=== PATIENT | male | born 1930 | race Caucasian/White ===

== ENCOUNTER → 2017-02-26 | Outpatient (CLI) | payer MEDICARE ==
[~2017-02-26] MED LIST: AGGR20025 PO; AMLO2.5T PO; ATOR40TA16 PO; CHLO.12%30 SWISH-SPIT; CHOL1CHW5 CHEW; CITA20TA4 PO; EMPA1TAB3 PO; GLIP10TA6 PO; GLYB5TAB3 PO; GUAISYP4 PO; HYDR-2374 PO; HYDR-2768 PO; HYDR12.57 PO; IPRA1POW8 NASAL; LIDO0.052 TOPICAL; LIDO2GEL11 TOPICAL; MEGE40TA PO; MOBI7.5T PO; MUPI2CRE3; NALO1TAB2 PO; NITR.3 SL; NORV5TAB PO; NYST15T TOPICAL; OFLO0.3D5 EACH EYE; ONDA1TAB17 PO; RANI150T PO; ZINC1CRE3 TOPICAL; ZOCO10TA PO; [UNRECOGNIZED DRUG - SUPPLY]
[2017-02-26 09:19] LABS: AUTOMATED NEUTROPHIL # 5.3 TH/MM3 (1.8-7.7); BASOPHIL % 0.5 % (0.0-2.0); EOSINOPHIL # 0.2 TH/MM3 (0-0.4); EOSINOPHIL % 2.2 % (0.0-4.0); HEMATOCRIT 44.5 % (39.0-51.0); HEMO FLAGS DIFF FINAL; LYMPH % 20.1 % (9.0-44.0); LYMPHOCYTE # 1.6 TH/MM3 (1.0-4.8); MEAN CELL VOLUME 88.8 FL (80.0-100.0); MEAN CORPUSCULAR HEMOGLOBIN 29.8 PG (27.0-34.0); MEAN CORPUSCULAR HGB CONC 33.5 % (32.0-36.0); MONO % 10.8 % (0.0-8.0); NEUT % 66.4 % (16.0-70.0); PLATELET COUNT 139 TH/MM3 (150-450); RED BLOOD COUNT 5.02 MIL/MM3 (4.50-5.90); RED CELL DISTRIBUTION WIDTH 14.8 % (11.6-17.2)
[2017-02-26 10:10] LABS: ALKALINE PHOSPHATASE 90 U/L (45-117); ALT (GPT) 28 U/L (12-78); ANION GAP 12 MEQ/L (5-15); AST (GOT) 17 U/L (15-37); BICARBONATE 26.5 MEQ/L (21.0-32.0); BLOOD UREA NITROGEN 30 MG/DL (7-18); CHLORIDE 102 MEQ/L (98-107); GLOMERULAR FILTRATION RATE 49 ML/MIN (>89); GLUCOSE,FASTING 143 MG/DL (74-99); HDL CHOLESTEROL 42.3 MG/DL (40.0-60.0); LDL CHOLESTEROL 61 MG/DL (0-99); POTASSIUM 3.4 MEQ/L (3.5-5.1); SODIUM (NA) 140 MEQ/L (136-145); THYROXINE (T4) 9.2 MCG/DL (4.5-12.1); TOTAL BILIRUBIN ADULT 0.6 MG/DL (0.2-1.0)
[2017-02-26 10:15] LABS: RHEUMATOID FACTOR TRIGGER LESS THAN 10.0 IU/ML (0.0-14.9)
[2017-02-26 13:53] LABS: BACTERIA, URINE MOD /hpf; BLOOD, URINE SMALL (NEG); COMMENT (UR) CULTURE INDICATED; CULTURE IF INDICATED CULTURE INDICATED; GLUCOSE,URINE 1000 mg/dL (NEG); KETONE, URINE TRACE mg/dL (NEG); NITRITE,URINE NEG (NEG); URINE COLOR YELLOW (YELLW/STRAW)
[2017-02-26 14:24] LABS: HEMOGLOBIN A1a 0.6 %; HEMOGLOBIN F 1.1 %; HEMOGLOBIN LA1C 2.4 %; HEMOGLOBIN P3 5.7 %
== END ==
LOC: PLAB 07:29
PROVIDERS: ATTEND Family Medicine
DX: I10 Essential (primary) hypertension (principal); E78.2 Mixed hyperlipidemia; E03.8 Other specified hypothyroidism; R53.83 Other fatigue; E11.319 Type 2 diabetes mellitus with unspecified diabetic retinopathy without macular edema; R82.90 Unspecified abnormal findings in urine; Z79.899 Other long term (current) drug therapy
CPT/HCPCS: 36415; 80053; 80061; 81001; 82043; 83036; 84436; 84443; 84480; 85025; 86430; 87077; 87086; 87186

== ENCOUNTER → 2017-03-27 | Outpatient (CLI) | payer MEDICARE ==
[2017-03-27 09:11] LABS: AUTOMATED NEUTROPHIL # 5.6 TH/MM3 (1.8-7.7); BASOPHIL # 0.1 TH/MM3 (0-0.2); BASOPHIL % 1.2 % (0.0-2.0); EOSINOPHIL # 0.4 TH/MM3 (0-0.4); EOSINOPHIL % 4.3 % (0.0-4.0); HEMO FLAGS DIFF FINAL; LYMPH % 19.3 % (9.0-44.0); LYMPHOCYTE # 1.7 TH/MM3 (1.0-4.8); MEAN CELL VOLUME 93.3 FL (80.0-100.0); MEAN CORPUSCULAR HEMOGLOBIN 30.5 PG (27.0-34.0); MEAN CORPUSCULAR HGB CONC 32.7 % (32.0-36.0); MONO % 10.7 % (0.0-8.0); NEUT % 64.5 % (16.0-70.0); PLATELET COUNT 147 TH/MM3 (150-450); RED BLOOD COUNT 4.83 MIL/MM3 (4.50-5.90); RED CELL DISTRIBUTION WIDTH 14.5 % (11.6-17.2); WHITE BLOOD COUNT 8.7 TH/MM3 (4.0-11.0)
[2017-03-27 10:21] LABS: ANION GAP 5 MEQ/L (5-15); BICARBONATE 30.7 MEQ/L (21.0-32.0); BLOOD UREA NITROGEN 31 MG/DL (7-18); CHLORIDE 104 MEQ/L (98-107); POTASSIUM 4.7 MEQ/L (3.5-5.1); SODIUM (NA) 140 MEQ/L (136-145)
[2017-03-27 10:27] LABS: ALT (GPT) 33 U/L (12-78); AST (GOT) 19 U/L (15-37); GLOMERULAR FILTRATION RATE 46 ML/MIN (>89); GLUCOSE,FASTING 125 MG/DL (74-99)
[2017-03-27 10:33] LABS: ALKALINE PHOSPHATASE 99 U/L (45-117); TOTAL BILIRUBIN ADULT 0.5 MG/DL (0.2-1.0)
== END ==
LOC: PLAB 06:44
PROVIDERS: ATTEND Urology
DX: C61 Malignant neoplasm of prostate (principal); I10 Essential (primary) hypertension; E10.8 Type 1 diabetes mellitus with unspecified complications
CPT/HCPCS: 36415; 80053; 84153; 85025

== ENCOUNTER → 2017-05-21 | Outpatient (CLI) | payer MEDICARE ==
[2017-05-21 10:44] LABS: POTASSIUM 3.8 MEQ/L (3.5-5.1)
[2017-05-21 10:47] LABS: HDL CHOLESTEROL 56.5 MG/DL (40.0-60.0)
== END ==
LOC: PLAB 06:49
PROVIDERS: ATTEND Family Medicine
DX: E10.8 Type 1 diabetes mellitus with unspecified complications (principal); E78.2 Mixed hyperlipidemia; Z79.899 Other long term (current) drug therapy
CPT/HCPCS: 36415; 80048; 80061

== ENCOUNTER → 2017-07-11 | Outpatient (CLI) | payer MEDICARE ==
[~2017-07-11] MED LIST changes: +ASPI1CAP PO; +EMPA1TAB PO; +HYDR-3583 PO; +IPRA0.06 EACH NARE; +NITR1SUB3 SL; +OMEP20TA PO; +VITA2000 PO; +VITA250C3 CHEW; +[UNRECOGNIZED DRUG - OTHER] PO
== END ==
LOC: PLAB 07:35
PROVIDERS: ATTEND Urology
DX: C61 Malignant neoplasm of prostate (principal); R31.1 Benign essential microscopic hematuria
CPT/HCPCS: 36415; 82565; 84153; 84520

== ENCOUNTER 2017-08-14 07:41 | Inpatient (IN) | payer MEDICARE ==
[~2017-08-14] VITALS: Ht 170.2 cm; Wt 84.2 kg
[2017-08-14] VITALS (10 sets, daily range): BP systolic 128–151; BP diastolic 68–84; PULSE 85–118; RESP 16–28; TEMP 97.7; O2SAT 93–99
[~2017-08-14 07:41] MED LIST changes: -ASPI1CAP PO; -EMPA1TAB PO; -HYDR-3583 PO; -IPRA0.06 EACH NARE; -NITR1SUB3 SL; -OMEP20TA PO; -VITA2000 PO; -VITA250C3 CHEW; -[UNRECOGNIZED DRUG - OTHER] PO
[2017-08-14] MEDS ORDERED: IOHEXOL 350 MG/ML 50 ML BTL (for RAD DIAG) IVCONTRAST ONE (07:42)
[2017-08-14] MEDS ORDERED: ASPIRIN 81 MG CHEW TAB PO ONE (08:00)
[2017-08-14] MEDS ORDERED: SODIUM CHLORIDE 0.9% FLUSH 10 ML FLUSH IVF PRN (08:00)
--- NOTE | 2017-08-14 08:07 | PD ---
HPI Chief Complaint: Respiratory Symptoms Time Seen by Provider: 07:55 Travel History International Travel<30 days: No Contact w/Intl Traveler<30days: No Traveled to known affect area: No History of Present Illness HPI Patient is an 87-year-old male with history of COPD, hypertension, hyperlipidemia, atrial fibrillation currently on Aggrenox for anticoagulation, presents to emergency room with complaints of shortness of breath and abdominal pain. Patient reports that he woke up this morning feeling short of breath, reports that his abdomen was uncomfortable, reports that he overall was not feeling well. Patient denies any cough, denies any fevers or chills, denies any overt chest pain. Patient reports that he does have history of COPD, with a past smoker but quit over 30 years ago. Denies history of CHF. Patient reports that he does not use oxygen at home at baseline, reports no recent illnesses or sick contacts. Patient reports that his abdomen was uncomfortable diffusely, reports that his abdomen is feeling much better upon presentation to the emergency room. EMS reports that when they arrived on scene, patient was diaphoretic, pale appearing, patient had a pulse ox of 93% on room air. Patient was found to be tachycardic complaining of shortness of breath and abdominal pain. Patient was given 500 mL of IV fluid and was placed on 3 L oxygen nasal cannula, patient reports that he feels much better at this time. PFSH Past Medical History Arthritis: Yes Autoimmune Disease: No Blood Disorders: No Heart Rhythm Problems: No Cancer: Yes (PROSTATE,SKIN) Cardiovascular Problems: Yes High Cholesterol: Yes Chest Pain: No Congestive Heart Failure: No COPD: Yes Cerebrovascular Accident: Yes (TIA X 2) Diabetes: Yes Patient Takes Glucophage: No Diminished Hearing: Yes ([place] with hearing aids) Endocrine: Yes Gastrointestinal Disorders: No GERD: Yes Glaucoma: No Genitourinary: No Hepatitis: No Hiatal Hernia: No Hypertension: Yes Immune Disorder: No Musculoskeletal: Yes (CHRONIC LOWER BACK PAIN) Neurologic: No Psychiatric: No Reproductive: No Respiratory: Yes (ASBESTOSIS) Myocardial Infarction: No Sickle Cell Disease: No Thyroid Disease: No Past Surgical History Abdominal Surgery: No AICD: No Appendectomy: Yes Arteriovenous Shunt: No Cardiac Surgery: No Ear Surgery: No Endocrine Surgery: No Eye Surgery: Yes (LEFT EYE CATARACT EXTRACT.) Genitourinary Surgery: No Gynecologic Surgery: No Insulin Pump: No Joint Replacement: No Neurologic Surgery: No Oral Surgery: No Pacemaker: No Thoracic Surgery: No Other Surgery: Yes Social History Alcohol Use: No Tobacco Use: No Substance Use: No Allergies-Medications (Allergen,Severity, Reaction): Coded Allergies: ciprofloxacin (Unverified Allergy, Severe, HIVES, ITCHING, 06/11/17) loratadine (Unverified Allergy, Severe, RASH,SWELLING, 06/11/17) glipizide (Unverified Allergy, Unknown, 06/11/17) metformin (Unverified Allergy, Unknown, 06/11/17) Uncoded Allergies: zithromax z brock (Allergy, Severe, Patient passed out, 12/07/16) Reported Meds & Prescriptions Reported Meds & Active Scripts Active Reported [ocuforce] 1 Tab PO DAILY Ipratropium Nasal 0.06% [place] 1 [place] EACH NARE TID Vitamin C (Ascorbic Acid) 250 Mg Chew 1,000 Mg CHEW DAILY Vitamin D3 (Cholecalciferol) 2,000 Unit Cap 2,000 Units PO DAILY Nitroglycerin SL (Nitroglycerin) 0.4 Mg Subl 0.4 Mg SL DIRECTED PRN ONE TABLET UNDER THE TONGUE NEEDED FOR CHEST PAIN, MAY REPEAT EVERY FIVE MINUTES FOR A TOTAL OF 3 DOSES OR CALL 911 IF NO RELIEF Hydrocodone-Acetaminophen 10-325 mg Tab 1 Tab PO Q4H PRN Dipyridamole-Aspirin 200-25 Mg Cap 1 Cap PO BID Omeprazole 20 Mg Tab 20 Mg PO DAILY Jardiance (Empagliflozin) 10 Mg Tab 10 Mg PO DAILY Citalopram (Citalopram Hydrobromide) 20 Mg Tab 20 Mg PO DAILY Ofloxacin Opth Drops 0.3 % Drops 1 Drop EACH EYE Q4HR Nitrostat SL (Nitroglycerin) 0.3 Mg Subl 0.3 Mg SL DIRECTED PRN ONE TABLET UNDER THE TONGUE NEEDED FOR CHEST PAIN, MAY REPEAT EVERY FIVE MINUTES FOR A TOTAL OF 3 DOSES OR CALL 911 IF NO RELIEF Movantik (Naloxegol) 25 Mg Tab 25 Mg PO DAILY Glyburide 5 Mg Tab 5 Mg PO QID Take with meals at the same time each day Amlodipine (Amlodipine Besylate) 2.5 Mg Tab 10 Mg PO DAILY Review of Systems General / Constitutional: No: Fever Eyes: No: Visual changes HENT: No: Headaches Cardiovascular: No: Chest Pain or Discomfort Respiratory: Positive: Shortness of Breath Gastrointestinal: Positive: Abdominal Pain Genitourinary: No: Dysuria Musculoskeletal: No: Pain Skin: No Rash Neurologic: No: Weakness Psychiatric: No: Depression Endocrine: No: Polydipsia Hematologic/Lymphatic: No: Easy Bruising Physical Exam Narrative GENERAL: Moderate distress SKIN: Focused skin assessment warm/dry. Patient well-appearing HEAD: Atraumatic. Normocephalic. EYES: Pupils equal and round. No scleral icterus. No injection or drainage. ENT: No nasal bleeding or discharge. Mucous membranes pink and moist. NECK: Trachea midline. No JVD. CARDIOVASCULAR: Tachycardic. No murmur appreciated. RESPIRATORY: No accessory muscle use. Clear to auscultation. Breath sounds equal bilaterally. GASTROINTESTINAL: Abdomen soft, mildly diffusely tender, nondistended. Hepatic and splenic margins not palpable. MUSCULOSKELETAL: No obvious deformities. No clubbing. No cyanosis. No edema. NEUROLOGICAL: Awake and alert. Motor grossly within normal limits. Normal speech. PSYCHIATRIC: Appropriate mood and affect; insight and judgment normal. Data Data Last Documented VS Vital Signs Date Time Temp Pulse Resp B/P (MAP) Pulse Ox O2 Delivery O2 Flow Rate FiO2 08/14/17 15:48 99 Nasal Cannula 3.00 08/14/17 12:30 109 20 132/68 (89) 08/14/17 07:54 97.7 Orders Orders Electrocardiogram (08/14/17 07:55) B-Type Natriuretic Peptide (08/14/17 07:55) Ckmb (Isoenzyme) Profile (08/14/17 07:55) Complete Blood Count With Diff (08/14/17 07:55) Comprehensive Metabolic Panel (08/14/17 07:55) Magnesium (Mg) (08/14/17 07:55) Prothrombin Time / Inr (Pt) (08/14/17 07:55) Act Partial Throm Time (Ptt) (08/14/17 07:55) Troponin I (08/14/17 07:55) Lipase (08/14/17 07:55) Chest, Single Ap (08/14/17 07:55) Ecg Monitoring (08/14/17 07:55) Iv Access Insert/Monitor (08/14/17 07:55) Oximetry (08/14/17 07:55) Aspirin Chew (Aspirin Chew) (08/14/17 08:00) Sodium Chloride 0.9% Flush (Ns Flush) (08/14/17 08:00) Morphine Inj (Morphine Inj) (08/14/17 09:15) Ct Pulmonary Angiogram (08/14/17 09:12) Ct Abd/Pel W Iv Contrast(Rout) (08/14/17 09:17) Sodium Chlorid 0.9% 500 Ml Inj (Ns 500 M (08/14/17 09:30) Potassium Chlor 20 Meq Premix (Kcl 20 Me (08/14/17 09:30) Aspirin (Aspirin) (08/14/17 12:00) Lorazepam Inj (Ativan Inj) (08/14/17 14:15) Admit To Inpatient (08/14/17 ) Vital Signs (Adult) Q4H (08/14/17 15:10) Activity Bed Rest With Brp (08/14/17 15:10) Bedside Glucose MANDIE.CSUGAR (08/14/17 15:10) Licensed Sales Assistant / Telemetry .CONTINUOUS (08/14/17 15:10) Diet Heart Healthy (08/14/17 Dinner) Sodium Chloride 0.9% Flush (Ns Flush) (08/14/17 15:15) Sodium Chloride 0.9% Flush (Ns Flush) (08/14/17 21:00) Acetaminophen (Tylenol) (08/14/17 15:15) Ondansetron Inj (Zofran Inj) (08/14/17 15:15) Comprehensive Metabolic Panel (08/15/17 06:00) Complete Blood Count With Diff (08/15/17 06:00) Troponin I (08/14/17 15:10) Troponin I (08/14/17 21:10) Resp Oxygen Jerel C Titrat 1-4 L (08/14/17 ) Naloxone Inj (Narcan Inj) (08/14/17 15:15) Docusate Sodium-Senna (Laura-Colace) (08/14/17 21:00) Magnesium Hydroxide Liq (Milk Of Magnesi (08/14/17 15:15) Sennosides (Senokot) (08/14/17 15:15) Bisacodyl Supp (Dulcolax Supp) (08/14/17 15:15) Lactulose Liq (Lactulose Liq) (08/14/17 15:15) Inpatient Certification (08/14/17 ) Sodium Chlor 0.9% 1000 Ml Inj (Ns 1000 M (08/14/17 15:15) Consult Pulmonology (08/14/17 ) Consult Cardiology (08/14/17 ) Insulin Aspart Supplemtl Scale (Novolog (08/14/17 17:00) Amlodipine (Norvasc) (08/15/17 09:00) Citalopram (Celexa) (08/15/17 09:00) Ofloxacin 0.3% Opth Soln (Ocuflox 0.3% O (08/14/17 16:00) Patient Own Medication (08/15/17 09:00) Pantoprazole (Protonix) (08/15/17 09:00) Famotidine (Pepcid) (08/14/17 21:00) Enoxaparin Inj (Lovenox Inj) (08/14/17 16:00) (Hub Use Only)Inp Phy Cons/Ref (08/14/17 ) (Hub Use Only)Inp Phy Cons/Ref (08/14/17 ) Iohexol 350 Inj (Omnipaque 350 Inj) (08/14/17 07:42) Heparin Inj (Heparin Inj) (08/14/17 16:30) Heparin-D5w 25,000 U/250 Ml (Heparin-D5w (08/14/17 16:30) Occult Blood (Hemoccult) Stool (08/14/17 16:16) Admit Order (Ed Use Only) (08/14/17 16:18) Add Patient To Providers List (08/14/17 ) Labs Laboratory Tests Test 08/14/17 08:00 White Blood Count 12.3 TH/MM3 Red Blood Count 4.69 MIL/MM3 Hemoglobin 14.5 GM/DL Hematocrit 43.1 % Mean Corpuscular Volume 92.1 FL Mean Corpuscular Hemoglobin 31.0 PG Mean Corpuscular Hemoglobin Concent 33.7 % Red Cell Distribution Width 13.9 % Platelet Count 129 TH/MM3 Mean Platelet Volume 9.1 FL Neutrophils (%) (Auto) 78.8 % Lymphocytes (%) (Auto) 13.5 % Monocytes (%) (Auto) 6.6 % Eosinophils (%) (Auto) 0.7 % Basophils (%) (Auto) 0.4 % Neutrophils # (Auto) 9.7 TH/MM3 Lymphocytes # (Auto) 1.7 TH/MM3 Monocytes # (Auto) 0.8 TH/MM3 Eosinophils # (Auto) 0.1 TH/MM3 Basophils # (Auto) 0.1 TH/MM3 CBC Comment DIFF FINAL Differential Comment Prothrombin Time 11.4 SEC Prothromb Time International Ratio 1.0 RATIO Activated Partial Thromboplast Time 27.7 SEC Blood Urea Nitrogen 19 MG/DL Creatinine 1.39 MG/DL Random Glucose 290 MG/DL Total Protein 6.3 GM/DL Albumin 3.3 GM/DL Calcium Level 9.7 MG/DL Magnesium Level 1.8 MG/DL Alkaline Phosphatase 94 U/L Aspartate Amino Transf (AST/SGOT) 41 U/L Alanine Aminotransferase (ALT/SGPT) 40 U/L Total Bilirubin 0.6 MG/DL Sodium Level 140 MEQ/L Potassium Level 3.4 MEQ/L Chloride Level 108 MEQ/L Carbon Dioxide Level 19.5 MEQ/L Anion Gap 13 MEQ/L Estimat Glomerular Filtration Rate 48 ML/MIN Total Creatine Kinase 45 U/L Troponin I 0.09 NG/ML B-Type Natriuretic Peptide 191 PG/ML Lipase 115 U/L [facility] Medical Decision Making Medical Screen Exam Complete: Yes Emergency Medical Condition: Yes Medical Record Reviewed: Yes Interpretation(s) EKG at 0756: Sinus tachycardia at 1 16 bpm, QT/QTC 343/412 Vital Signs Date Time Temp Pulse Resp B/P (MAP) Pulse Ox O2 Delivery O2 Flow Rate FiO2 08/14/17 07:54 97.7 08/14/17 07:52 99 Nasal Cannula 3.00 08/14/17 07:48 114 28 128/75 (92) 93 Differential Diagnosis Differential includes ACS, arrhythmia, gastritis, gastroenteritis, cholecystitis , COPD exacerbation, PE, pneumonia Narrative Course Patient was placed on a cardiac rehabilitation specialist upon arrival to the emergency room. He was found to be tachycardic with heart rate in the 116 and hypoxic with pulse ox of 93% on room air. he was placed on oxygen upon arrival to the emergency room. X-ray chest ordered. Lab work including CE, CBC, CMP ordered. Plan to monitor patient. Vital Signs Date Time Temp Pulse Resp B/P (MAP) Pulse Ox O2 Delivery O2 Flow Rate FiO2 08/14/17 12:30 109 20 132/68 (89) 99 08/14/17 09:01 118 22 135/68 (90) 96 Nasal Cannula 3.00 08/14/17 07:54 97.7 08/14/17 07:52 99 Nasal Cannula 3.00 08/14/17 07:48 114 28 128/75 (92) 93 Laboratory Tests Test 08/14/17 08:00 White Blood Count 12.3 TH/MM3 (4.0-11.0) Red Blood Count 4.69 MIL/MM3 (4.50-5.90) Hemoglobin 14.5 GM/DL (13.0-17.0) Hematocrit 43.1 % (39.0-51.0) Mean Corpuscular Volume 92.1 FL (80.0-100.0) Mean Corpuscular Hemoglobin 31.0 PG (27.0-34.0) Mean Corpuscular Hemoglobin Concent 33.7 % (32.0-36.0) Red Cell Distribution Width 13.9 % (11.6-17.2) Platelet Count 129 TH/MM3 (150-450) Mean Platelet Volume 9.1 FL (7.0-11.0) Neutrophils (%) (Auto) 78.8 % (16.0-70.0) Lymphocytes (%) (Auto) 13.5 % (9.0-44.0) Monocytes (%) (Auto) 6.6 % (0.0-8.0) Eosinophils (%) (Auto) 0.7 % (0.0-4.0) Basophils (%) (Auto) 0.4 % (0.0-2.0) Neutrophils # (Auto) 9.7 TH/MM3 (1.8-7.7) Lymphocytes # (Auto) 1.7 TH/MM3 (1.0-4.8) Monocytes # (Auto) 0.8 TH/MM3 (0-0.9) Eosinophils # (Auto) 0.1 TH/MM3 (0-0.4) Basophils # (Auto) 0.1 TH/MM3 (0-0.2) CBC Comment DIFF FINAL Differential Comment Prothrombin Time 11.4 SEC (9.8-11.6) Prothromb Time International Ratio 1.0 RATIO Activated Partial Thromboplast Time 27.7 SEC (24.3-30.1) Blood Urea Nitrogen 19 MG/DL (7-18) Creatinine 1.39 MG/DL (0.60-1.30) Random Glucose 290 MG/DL (74-106) Total Protein 6.3 GM/DL (6.4-8.2) Albumin 3.3 GM/DL (3.4-5.0) Calcium Level 9.7 MG/DL (8.5-10.1) Magnesium Level 1.8 MG/DL (1.5-2.5) Alkaline Phosphatase 94 U/L (45-117) Aspartate Amino Transf (AST/SGOT) 41 U/L (15-37) Alanine Aminotransferase (ALT/SGPT) 40 U/L (12-78) Total Bilirubin 0.6 MG/DL (0.2-1.0) Sodium Level 140 MEQ/L (136-145) Potassium Level 3.4 MEQ/L (3.5-5.1) Chloride Level 108 MEQ/L (98-107) Carbon Dioxide Level 19.5 MEQ/L (21.0-32.0) Anion Gap 13 MEQ/L (5-15) Estimat Glomerular Filtration Rate 48 ML/MIN (>89) Total Creatine Kinase 45 U/L (39-308) Troponin I 0.09 NG/ML (0.02-0.05) B-Type Natriuretic Peptide 191 PG/ML (0-100) Lipase 115 U/L (73-393) Last Impressions Chest X-Ray 08/14/17 0755 Signed Impressions: Service Date/Time: Monday, August 14, 2017 08:13 - CONCLUSION: No acute cardiopulmonary abnormality is identified. Jace Ron MD There is delay of care as patient refusing ct of chest as well as ct of abdomen and pelvis. Discussed with him that I need these CAT scans to rule out PE as he has a mildly elevated troponin and shortness of breath. Patient is also tachycardic on exam. Patient also continues to have abdominal pain. IV Ativan ordered to help with his anxiety for CT study Last Impressions CT Angiography 08/14/17 0912 Signed Impressions: Service Date/Time: Monday, August 14, 2017 15:26 - CONCLUSION: 1. Significant volume pulmonary emboli bilaterally. Jovani Jenkins Jr., MD Chest X-Ray 08/14/17 0755 Signed Impressions: Service Date/Time: Monday, August 14, 2017 08:13 - CONCLUSION: No acute cardiopulmonary abnormality is identified. Jace Ron MD Patient with significant pulmonary emboli and exam, heparin bolus as well as heparin drip started. Case reviewed with Flora with Dr. Rodriguez's service who accepts pt to service studies reviewed with patient in detail - understands need for anticoagulation Critical Care Narrative Aggregate critical care time was 45 minutes. Time to perform other separately billable procedures was not included in the critical care time. My time did not include minutes spent treating any other patients simultaneously or on activities that did not directly contribute to the patient's treatment. The services I provided to this patient were to treat and/or prevent clinically significant deterioration that could result in: , decompensation, deterioration I provided critical care services requiring my management, as noted below: Chart data review, documentation time, medication orders and management, vital sign assessments/reviewing monitor data, ordering and reviewing lab tests, ordering and interpreting/reviewing x-rays and diagnostic studies, care of the patient and discussion of the patient with the admitting physicians. Diagnosis Primary Impression: Pulmonary embolism Additional Impression: Hypoxia Admitting Information Admitting Physician Requests: Admit Tonya Freedman DO Aug 14, 2017 08:07
[2017-08-14 08:28] LABS: AUTOMATED NEUTROPHIL # 9.7 TH/MM3 (1.8-7.7); BASOPHIL # 0.1 TH/MM3 (0-0.2); BASOPHIL % 0.4 % (0.0-2.0); EOSINOPHIL # 0.1 TH/MM3 (0-0.4); EOSINOPHIL % 0.7 % (0.0-4.0); HEMATOCRIT 43.1 % (39.0-51.0); HEMO FLAGS DIFF FINAL; LYMPH % 13.5 % (9.0-44.0); LYMPHOCYTE # 1.7 TH/MM3 (1.0-4.8); MEAN CELL VOLUME 92.1 FL (80.0-100.0); MEAN CORPUSCULAR HGB CONC 33.7 % (32.0-36.0); MONO % 6.6 % (0.0-8.0); NEUT % 78.8 % (16.0-70.0); PLATELET COUNT 129 TH/MM3 (150-450); RED BLOOD COUNT 4.69 MIL/MM3 (4.50-5.90); RED CELL DISTRIBUTION WIDTH 13.9 % (11.6-17.2); WHITE BLOOD COUNT 12.3 TH/MM3 (4.0-11.0)
--- NOTE | 2017-08-14 08:33 | RADRPT ---
EXAM DATE/TIME: 08/14/2017 08:13 [facility] COMPARISON: No previous studies available for comparison. INDICATIONS : Shortness of breath. MEDICAL HISTORY : Hypertension. Chronic obstructive pulmonary disease. SURGICAL HISTORY : None. ENCOUNTER: Initial ACUITY: 1 day PAIN SCORE: 0/10 LOCATION: Bilateral chest FINDINGS: Portable AP view of the chest demonstrates a normal-sized cardiac silhouette. No effusion, consolidat ion, or pneumothorax is visualized. The bones and soft tissues demonstrate no acute abnormality. Ther e are degenerative changes of the thoracic spine. CONCLUSION: No acute cardiopulmonary abnormality is identified. Jace Ron MD on August 14, 2017 at 8:31 Board Certified Radiologist. This report was verified electronically.
[2017-08-14 08:37] LABS: APTT (PATIENT) 27.7 SEC (24.3-30.1); PROTHROMBIN TIME - PATIENT 11.4 SEC (9.8-11.6)
[2017-08-14] MEDS ORDERED: OMEP20TA PO (08:37)
[2017-08-14] MEDS ORDERED: ASPI1CAP PO (08:37)
[2017-08-14] MEDS ORDERED: EMPA1TAB PO (08:37)
[2017-08-14] MEDS ORDERED: HYDR-3583 PO (08:42)
[2017-08-14] MEDS ORDERED: NITR1SUB3 SL (08:42)
[2017-08-14 08:48] LABS: ALT (GPT) 40 U/L (12-78); ANION GAP 13 MEQ/L (5-15); AST (GOT) 41 U/L (15-37); BICARBONATE 19.5 MEQ/L (21.0-32.0); BLOOD UREA NITROGEN 19 MG/DL (7-18); CHLORIDE 108 MEQ/L (98-107); GLOMERULAR FILTRATION RATE 48 ML/MIN (>89); MAGNESIUM 1.8 MG/DL (1.5-2.5); POTASSIUM 3.4 MEQ/L (3.5-5.1); SODIUM (NA) 140 MEQ/L (136-145)
[2017-08-14] MEDS ORDERED: [UNRECOGNIZED DRUG - OTHER] PO (08:50)
[2017-08-14] MEDS ORDERED: VITA250C3 CHEW (08:50)
[2017-08-14] MEDS ORDERED: IPRA0.06 EACH NARE (08:50)
[2017-08-14] MEDS ORDERED: VITA2000 PO (08:50)
[2017-08-14 08:52] LABS: ALKALINE PHOSPHATASE 94 U/L (45-117); TOTAL BILIRUBIN ADULT 0.6 MG/DL (0.2-1.0)
[2017-08-14 08:56] LABS: CREATINE KINASE 45 U/L (39-308)
[2017-08-14] MEDS ORDERED: MORPHINE SULFATE 4 MG/ML INJ IV PUSH ONE (09:15)
[2017-08-14] MEDS ORDERED: SODIUM CHLORID 0.9% 500 ML INJ 500 ML IV ONE (09:30)
[2017-08-14] MEDS: POTASSIUM CHLOR 20 MEQ PREMIX 100 ML IV SCH ×2 (10:04→14:21)
[2017-08-14] MEDS ORDERED: ASPIRIN 325 MG TAB PO ONE (12:00)
--- NOTE | 2017-08-14 13:44 | EKG ---
Date Performed: 08/14/2017 Time Performed: 07:56:42 PTAGE: 87 years EKG: SINUS TACHYCARDIA WITH OCCASIONAL SUPRAVENTRICULAR PREMATURE COMPLEXES BORDERLINE RIGHT AXI S DEVIATION INTRAVENTRICULAR CONDUCTION DELAY POSSIBLE INFERIOR MYOCARDIAL INFARCTION ABNORMAL ECG PREVIOUS TRACING : 12/03/2011 13.36 DOCTOR: Herson Phipps Interpretating Date/Time 08/14/2017 13:41:29
[2017-08-14] MEDS ORDERED: LORazepam 2 MG/ML VIAL IV PUSH ONE (14:15)
[2017-08-14] MEDS ORDERED: ACETAMINOPHEN 325 MG TAB PO PRN (15:15)
[2017-08-14] MEDS ORDERED: SODIUM CHLORIDE 0.9% FLUSH 10 ML FLUSH IV FLUSH PRN (15:15)
[2017-08-14] MEDS: SODIUM CHLOR 0.9% 1000 ML INJ 1,000 ML IV SCH (15:15)
[2017-08-14] MEDS ORDERED: LACTULOSE SYRUP 20 GM/30 ML CUP PO PRN (15:15)
[2017-08-14] MEDS ORDERED: BISACODYL 10 MG SUPP RECTAL PRN (15:15)
[2017-08-14] MEDS ORDERED: ONDANSETRON HCL 4 MG/2 ML VIAL IVP PRN (15:15)
[2017-08-14] MEDS ORDERED: NALOXONE HCL 0.4 MG/ML AMP IV PUSH PRN (15:15)
[2017-08-14] MEDS ORDERED: SENNOSIDES 8.6 MG TAB PO PRN (15:15)
--- NOTE | 2017-08-14 15:54 | RADRPT ---
EXAM DATE/TIME: 08/14/2017 15:26 [facility] COMPARISON: No previous studies available for comparison. INDICATIONS : Short of breath, evaluate for pulmonary emboli. IV CONTRAST: 75 cc Omnipaque 350 (iohexol) IV ; Cumulative dose for multiple exams. RADIATION DOSE: 32.07 CTDIvol (mGy) ; Combined studies MEDICAL HISTORY : Hypertension. Chronic obstructive pulmonary disease. Carcinoma, prostate.diabetic SURGICAL HISTORY : Appendectomy. ENCOUNTER: Initial ACUITY: 1 day PAIN SCALE: Non-responsive LOCATION: chest TECHNIQUE: Volumetric scanning of the chest was performed using a pulmonary embolism protocol MIP images were re constructed. Using automated exposure control and adjustment of the mA and/or kV according to patien t size, radiation dose was kept as low as reasonably achievable to obtain optimal diagnostic quality images. DICOM format image data is available electronically for review and comparison. Follow-up recommendations for detected pulmonary nodules are based at a minimum on nodule size and pa tient risk factors according to Fleischner Society Guidelines. FINDINGS: PULMONARY ARTERIES: Acute pulmonary emboli are seen bilaterally. A large volume of thrombus is seen throughout the main r ight pulmonary artery extending into the upper lobe several branches as well as the interlobar pulmon allan artery and into the lower lobe segmental branches. Thrombus is seen in the proximal segmental bra nches of the left upper lobe and left lower lobe. LUNGS: Bronchiectasis involving the basilar segments bilaterally but more pronounced on the right. No discre te infiltrate. PLEURAE: There is no pleural thickening or pleural effusion. MEDIASTINUM: The heart is normal in size. No pericardial effusion. Significant coronary artery atherosclerotic micah cifications. Aorta is normal in caliber. No adenopathy or mass. MUSCULOSKELETAL: There is a degenerative thoracic spine. MISCELLANEOUS: The visualized upper abdominal organs demonstrate no acute abnormality. CONCLUSION: 1. Significant volume pulmonary emboli bilaterally. Jovani Jenkins Jr., MD on August 14, 2017 at 15:46 Board Certified Radiologist. This report was verified electronically.
[2017-08-14] MEDS ORDERED: ENOXAPARIN SODIUM 40 MG/0.4 ML SYRINGE SQ SCH (16:00)
[2017-08-14] MEDS ORDERED: HEPARIN SODIUM - IV 10,000 UNITS/10 ML VIAL IV PUSH ONE (16:30)
--- NOTE | 2017-08-14 16:36 | RADRPT ---
EXAM DATE/TIME: 08/14/2017 15:29 [facility] COMPARISON: No previous studies available for comparison. INDICATIONS : Abdominal pain. IV CONTRAST: 75 cc Omnipaque 350 (iohexol) IV ; Cumulative dose for multiple exams. ORAL CONTRAST: No oral contrast ingested. RADIATION DOSE: 32.07 CTDIvol (mGy) ; Combined studies MEDICAL HISTORY : Hypertension. Chronic obstructive pulmonary disease. Carcinoma, prostate.Diabetic SURGICAL HISTORY : Appendectomy. ENCOUNTER: Initial ACUITY: 1 day PAIN SCALE: Non-responsive LOCATION: abdomen TECHNIQUE: Volumetric scanning of the abdomen and pelvis was performed. Using automated exposure control and ad justment of the mA and/or kV according to patient size, radiation dose was kept as low as reasonably achievable to obtain optimal diagnostic quality images. DICOM format image data is available electro nically for review and comparison. FINDINGS: LOWER LUNGS: See the CTA of the thorax dictated separately. LIVER: Homogeneous density without lesion. There is no dilation of the biliary tree. No calcified gallston es. SPLEEN: Normal size without lesion. PANCREAS: Within normal limits. KIDNEYS: Multiple low-density lesions are seen involving both kidneys consistent with cortical cyst. There is indeterminate lesion is seen exophytic from the lateral margin of the lower pole the left kidney. Thi s measures 3.8 cm in diameter. Hounsfield units are 25. Atherosclerotic ulcerations are seen involvin g both kidneys. No collecting system stones or hydronephrosis. ADRENAL GLANDS: Within normal limits. VASCULAR: Diffuse calcified plaque involving aorta and inflow vessels. No aneurysmal change. BOWEL/MESENTERY: The stomach, small bowel, and colon demonstrate no acute abnormality. There is no free intraperitone al air or fluid. Colonic diverticuli. No acute inflammation. ABDOMINAL WALL: Within normal limits. RETROPERITONEUM: There is no lymphadenopathy. BLADDER: No wall thickening or mass. REPRODUCTIVE: Enlarged prostate with measuring 7.5 cm. Several punctate calcifications. No soft tissue mass observe d. INGUINAL: There is no lymphadenopathy or hernia. MUSCULOSKELETAL: A degenerative lumbar spine. Mild scoliosis. CONCLUSION: 1. See the CTA of the chest reported separately. 2. 3.8 cm indeterminate lesion involving the lower pole the left kidney. This may relate to a complex cyst, however, a solid lesion cannot be excluded. Consider ultrasound of the kidneys to further eval uate. 3. Enlarged prostate. Jovani Jenkins Jr., MD on August 14, 2017 at 16:28 Board Certified Radiologist. This report was verified electronically.
[2017-08-14] MEDS: HEPARIN-D5W 25,000 U/250 ML 250 ML IV PRN (18:59)
[2017-08-14] MEDS ORDERED: CHLORHEXIDINE GLUCONATE 2 % 1 PACK (2 CLOTHS)(extra cloths) TOPICAL PRN (20:30)
--- NOTE | 2017-08-14 20:59 | MB ---
cc: PRECIOUS COLES DATE OF CONSULTATION 08/14/17 HISTORY OF PRESENT ILLNESS Mr. Villar is an 87-year-old white male with a history of COPD, atrial fibrillation, TIA who presented to the emergency room with shortness of breath and abdominal pain which started at 4 o'clock this morning. He has not had any chest pain, cough or peripheral edema. He was found to be tachycardiac. CT angiogram revealed significant pulmonary embolism. He was started on IV heparin. PAST MEDICAL HISTORY Positive for atrial fibrillation, hypertension, dyslipidemia, COPD. Prostate cancer, skin cancer, arthritis. TIA on two occasions. Diabetes mellitus, lower back pain. Asbestosis. History of appendectomy, left eye cataract surgery. MEDICATIONS AT HOME Include: 1. Amlodipine. 2. Glyburide. 3. Movantik. 4. P.r.n. nitroglycerin. 5. Ofloxacin eye drops. 6. Citalopram. 7. Jardiance. 8. Omeprazole. 9. ____. 10. Aspirin. 11. Hydrocodone/Acetaminophen. 12. Vitamin D3. 13. Vitamin C. 14. Ipratropium nasal spray. ALLERGIES CIPROFLOXACIN, LORATADINE, GLIPIZIDE, METFORMIN, ZITHROMAX. SOCIAL HISTORY The patient does not smokes, quit smoking 30 years ago. He does not drink alcohol. FAMILY HISTORY Positive for heart disease in his mother. REVIEW OF SYSTEMS The review of systems otherwise negative. PHYSICAL EXAMINATION VITAL SIGNS: Blood pressure 151/84, pulse 93 and regular. HEENT: Negative. NECK: 2+ carotid upstrokes. No bruits. LUNGS: Clear. HEART: Tachycardiac; no murmur, no gallop. ABDOMEN: Soft. No bruits. EXTREMITIES: Without edema. 2+ distal pulses. NEUROLOGIC: Grossly nonfocal. CARDIOLOGY STUDIES EKG was reviewed and showed a sinus rhythm, right axis, interventricular conduction delay. LABORATORY DATA Hemoglobin 14.5, potassium 3.4, creatinine 1.4. AST 41, ALT 40, troponin 0.09. BNP 191. DIAGNOSIS 1. Pulmonary embolism. 2. Paroxysmal atrial fibrillation. 3. Hypertension, 4. Diabetes mellitus. 5. Dyslipidemia. 6. COPD. 7. History of TIA. 8. Mildly ___ troponin. DISPOSITION Mr. Villar will be admitted to telemetry for close monitoring. We will continue IV heparin for his pulmonary embolism. subsequently switched to IV warfarin or a novel anticoagulant. His mild troponin elevation is likely related to a combination of his pulmonary embolism and mild renal insufficiency. Will obtain echocardiogram to evaluate his left ventricular function and also further evaluation of his right ventricle. We will follow him for cardiology during hospitalization. MD SHIRA Osorio/ARON /5:56 PM /8:26 PM
[2017-08-14] MEDS: INSULIN ASPART SUPPLEMENTAL SCALE SQ SCH (21:00)
[2017-08-14] MEDS ORDERED: FAMOTIDINE 20 MG TAB PO SCH (21:00)
[2017-08-14] MEDS ORDERED: FAMOTIDINE 20 MG/2 ML VIAL IV PUSH SCH (21:00)
--- NOTE | 2017-08-14 21:17 | MB ---
cc: DINAH BARLOW DATE OF CONSULTATION 08/14/[address] Rodriguez REASON FOR CONSULTATION Evaluate for shortness of breath. HISTORY OF THE PRESENT ILLNESS Mr. Villar is a pleasant 87-year-old male with a history of atrial fibrillation, COPD, chronic back pain and history of CVA. He is on Aggrenox for anticoagulation. The patient came to the hospital with history of not feeling well over the last few days. He is feeling unsteady and he states that he fell down a few times. He has mild shortness of breath, abdominal pain. Because of his symptoms he was brought to the emergency room. He had a workup done. LABORATORY DATA His CBC showed WBC count 12.3, hemoglobin 14.5, hematocrit 43.1, MCV 92, platelet count 129. Sodium 140, potassium 3.4, chloride 108, CO2 19, BUN 19, creatinine 1.39. His INR is 1.0. IMAGING The patient had a CTA of the chest done which shows that he has significant volume pulmonary emboli bilaterally. He had a CT scan the abdomen done which shows a 3.8 cm indeterminate lesion involving the lower wall of the left kidney. He is started on heparin drip. He feels a little better, still somewhat confused . PAST MEDICAL HISTORY Significant for: 1. History of COPD. 2. Atrial fibrillation. 3. History of TIA. 4. History of chronic back pain. 5. History of appendectomy. 6. Cataract surgery. MEDICATIONS He is currently takin. Amlodipine 10 mg. 2. Citalopram 20 mg a day. 3. Protonix 20 mg a day. 4. Heparin IV. 5. Magnesium oxide 30 ml q.12h as needed. ALLERGIES HE IS ALLERGIC TO CIPRO, GLIPIZIDE, LORATIDINE, METFORMIN, ZITHROMAX. SOCIAL HISTORY He is . He used to work in construction. Has a history of smoking which he quit. He used to drink before. FAMILY HISTORY Noncontributory. REVIEW OF SYSTEMS The patient states that normally he is up, around and walking, walks with the help of a walker. Denies any headache. No bleeding from any site. No seizure or epilepsy. PHYSICAL EXAMINATION GENERAL: Elderly male, mild short of breath, not in acute distress. VITAL SIGNS: [place] 151/84, heart rate 93, respiratory rate 20, temperature 98. HEENT: Pupils are equal and reactive to light. Oral mucosa, nasal mucosa normal. NECK: Supple. JVP not raised. CHEST: Equal bilaterally. No rhonchi. CARDIOVASCULAR: S1-S2 normal. ABDOMEN: Benign. EXTREMITIES: No edema. IMPRESSION 1. Bilateral pulmonary embolism. 2. Shortness of breath. 3. History of atrial fibrillation. 4. History of transient ischemic attack. 5. Hypertension. 6. Chronic renal insufficiency. 7. History of fall. PLAN He will need anticoagulation with heparin and we will see how he tolerates it. Watch him for any signs of bleeding. The patient will be at increased risk of bleeding because of his history of falls. If he tolerates the heparin then he will need to be put on newer oral anticoagulation. Continue current medications. Monitor blood pressure. Monitor his PTT. Further treatment will depend on the course in the hospital. Thank you Dr. Rodriguez for this consultation. MD PERRI Hoyos/SHIVANI /5:59 PM /8:48 PM
[2017-08-14] MEDS: DOCUSATE SODIUM 50 MG/SENNA 8.6 MG TAB PO SCH (22:04)
[2017-08-14] MEDS: SODIUM CHLORIDE 0.9% FLUSH 10 ML FLUSH IV FLUSH SCH (22:05)
--- NOTE | 2017-08-14 22:54 | PD.CONS ---
[facility] Service Critical Care Medicine Consult Requested By Dr. Rodriguez Reason for Consult Management of hemodynamics and respiratory status Primary Care Physician Stan Rodriguez, DO History of Present Illness Patient is an 87-year-old male with history of COPD, hypertension, hyperlipidemia, atrial fibrillation currently on Aggrenox for anticoagulation, presents to emergency room with complaints of shortness of breath and abdominal pain. Patient reports that he woke up this morning feeling short of breath, reports that his abdomen was uncomfortable, reports that he overall was not feeling well. Patient denies any cough, denies any fevers or chills, denies any overt chest pain. Patient reports that he does have history of COPD, with a past smoker but quit over 30 years ago. Denies history of CHF. Patient reports that he does not use oxygen at home at baseline, reports no recent illnesses or sick contacts. Patient reports that his abdomen was uncomfortable diffusely, reports that his abdomen is feeling much better upon presentation to the emergency room. EMS reports that when they arrived on scene, patient was diaphoretic, pale appearing, patient had a pulse ox of 93% on room air. Patient was found to be tachycardic complaining of shortness of breath and abdominal pain. Patient was given 500 mL of IV fluid and was placed on 3 L oxygen nasal cannula, patient reports that he feels much better at this time. Review of Systems Constitutional: DENIES: Fatigue, Fever, Chills Respiratory: COMPLAINS OF: Shortness of breath, DENIES: Apneas, Cough, Wheezing , Hemoptysis, Sputum production Cardiovascular: COMPLAINS OF: Syncope, DENIES: Chest pain, Palpitations, Dyspnea on Exertion, PND, Lower Extremity Edema, Orthopnea, Claudication Gastrointestinal: DENIES: Abdominal pain, Black stools, Constipation, Diarrhea , Nausea, Vomiting Musculoskeletal: DENIES: Back pain Neurologic: DENIES: Headache, Localized weakness Psychiatric: DENIES: Confusion Past Family Social History Allergies: Coded Allergies: ciprofloxacin (Unverified Allergy, Severe, HIVES, ITCHING, 06/11/17) loratadine (Unverified Allergy, Severe, RASH,SWELLING, 06/11/17) glipizide (Unverified Allergy, Unknown, 06/11/17) metformin (Unverified Allergy, Unknown, 06/11/17) Uncoded Allergies: zithromax z brock (Allergy, Severe, Patient passed out, 12/07/16) Past Medical History Arthritis Prostate cancer Skin cancer and Hypertension High cholesterol TIA 2 COPD Diabetes Hearing loss Chronic low back pain Asbestosis Past Surgical History Left eye cataract extraction Appendectomy Take with meals at the same time each day Amlodipine (Amlodipine Besylate) 2.5 Mg Tab 10 Mg PO DAILY Reported Medications [ocuforce] 1 Tab PO DAILY Ipratropium Nasal 0.06% [place] 1 [place] EACH NARE TID Vitamin C (Ascorbic Acid) 250 Mg Chew 1,000 Mg CHEW DAILY Vitamin D3 (Cholecalciferol) 2,000 Unit Cap 2,000 Units PO DAILY Nitroglycerin SL (Nitroglycerin) 0.4 Mg Subl 0.4 Mg SL DIRECTED PRN ONE TABLET UNDER THE TONGUE NEEDED FOR CHEST PAIN, MAY REPEAT EVERY FIVE MINUTES FOR A TOTAL OF 3 DOSES OR CALL 911 IF NO RELIEF Hydrocodone-Acetaminophen 10-325 mg Tab 1 Tab PO Q4H PRN Dipyridamole-Aspirin 200-25 Mg Cap 1 Cap PO BID Omeprazole 20 Mg Tab 20 Mg PO DAILY Jardiance (Empagliflozin) 10 Mg Tab 10 Mg PO DAILY Citalopram (Citalopram Hydrobromide) 20 Mg Tab 20 Mg PO DAILY Ofloxacin Opth Drops 0.3 % Drops 1 Drop EACH EYE Q4HR Nitrostat SL (Nitroglycerin) 0.3 Mg Subl 0.3 Mg SL DIRECTED PRN ONE TABLET UNDER THE TONGUE NEEDED FOR CHEST PAIN, MAY REPEAT EVERY FIVE MINUTES FOR A TOTAL OF 3 DOSES OR CALL 911 IF NO RELIEF Movantik (Naloxegol) 25 Mg Tab 25 Mg PO DAILY Glyburide 5 Mg Tab 5 Mg PO QID Active Ordered Medications See MAR Family History Reviewing the chart and found to be noncontributory to his acute illness Social History Denies tobacco, alcohol, drugs of abuse Physical Exam Vital Signs Vital Signs Date Time Temp Pulse Resp B/P (MAP) Pulse Ox O2 Delivery O2 Flow Rate FiO2 08/14/17 20:27 85 16 144/83 (103) 98 08/14/17 20:13 08/14/17 17:45 93 20 151/84 (106) 98 Nasal Cannula 08/14/17 15:48 99 Nasal Cannula 3.00 08/14/17 12:30 109 20 132/68 (89) 99 08/14/17 09:01 118 22 135/68 (90) 96 Nasal Cannula 3.00 08/14/17 07:54 97.7 08/14/17 07:52 99 Nasal Cannula 3.00 08/14/17 07:48 114 28 128/75 (92) 93 Physical Exam GENERAL: Frail elderly male, lying in bed, slightly tachypneic HEENT: Normocephalic. Atraumatic. Pupils equal, round, reactive, conjugate. Mucous membranes are moist NECK: Trachea is midline. There is no JVD. CHEST: Mildly tachypneic. Equal chest rise. On 3 L nasal cannula oxygen. SPO2 97% CARDIOVASCULAR: Tachycardic rate, regular rhythm. Sinus by telemetry. ABDOMEN: Soft, nontender, nondistended. No guarding. MUSCULOSKELETAL: Pulses 2+. No peripheral edema. NEUROLOGICAL: RASS -1. Somnolent but arousable. Follows commands. Laboratory Laboratory Tests Test 08/14/17 08:00 08/14/17 19:00 08/14/17 20:30 White Blood Count 12.3 Red Blood Count 4.69 Hemoglobin 14.5 Hematocrit 43.1 Mean Corpuscular Volume 92.1 Mean Corpuscular Hemoglobin 31.0 Mean Corpuscular Hemoglobin Concent 33.7 Red Cell Distribution Width 13.9 Platelet Count 129 Mean Platelet Volume 9.1 Neutrophils (%) (Auto) 78.8 Lymphocytes (%) (Auto) 13.5 Monocytes (%) (Auto) 6.6 Eosinophils (%) (Auto) 0.7 Basophils (%) (Auto) 0.4 Neutrophils # (Auto) 9.7 Lymphocytes # (Auto) 1.7 Monocytes # (Auto) 0.8 Eosinophils # (Auto) 0.1 Basophils # (Auto) 0.1 CBC Comment DIFF FINAL Differential Comment Prothrombin Time 11.4 Prothromb Time International Ratio 1.0 Activated Partial Thromboplast Time 27.7 Blood Urea Nitrogen 19 Creatinine 1.39 Random Glucose 290 Total Protein 6.3 Albumin 3.3 Calcium Level 9.7 Magnesium Level 1.8 Alkaline Phosphatase 94 Aspartate Amino Transf (AST/SGOT) 41 Alanine Aminotransferase (ALT/SGPT) 40 Total Bilirubin 0.6 Sodium Level 140 Potassium Level 3.4 Chloride Level 108 Carbon Dioxide Level 19.5 Anion Gap 13 Estimat Glomerular Filtration Rate 48 Total Creatine Kinase 45 Troponin I 0.09 0.95 B-Type Natriuretic Peptide 191 Lipase 115 Result Diagram: 08/14/17 0800 08/14/17 08 Imaging Last Impressions Abdomen/Pelvis CT 08/14/17916 Signed Impressions: Service Date/Time: Monday, August 14, 2017 15:29 - CONCLUSION: 1. See the CTA of the chest reported separately. 2. 3.8 cm indeterminate lesion involving the lower pole the left kidney. This may relate to a complex cyst, however, a solid lesion cannot be excluded. Consider ultrasound of the kidneys to further evaluate. 3. Enlarged prostate. Jovani Jenkins Jr., MD CT Angiography 08/14/17911 Signed Impressions: Service Date/Time: Monday, August 14, 2017 15:26 - CONCLUSION: 1. Significant volume pulmonary emboli bilaterally. Jovani Jenkins Jr., MD Chest X-Ray 08/14/17 0755 Signed Impressions: Service Date/Time: Monday, August 14, 2017 08:13 - CONCLUSION: No acute cardiopulmonary abnormality is identified. Jace Ron MD Assessment and Plan Assessment and Plan Assessment: 87-year-old male with new large clot burden pulmonary emboli and associated shortness of breath. I discussed case with his primary team and we have agreed based on his age and associated bleeding risk, that systemic TPA for submassive pulmonary embolism should be avoided unless he clinically decompensates, and we should pursue therapeutic echo regulation with heparin drip transitioning to oral anticoagulation. I agree with this plan. I also agree with Dr. Chin's plan to obtain TTE to eval right ventricular strain. Certainly he remains very medically high risk for sudden cardiac over the next 30 days and high risk for long-term WHO Class IV Pulmonary Hypertension. High risk for decompensation and I agree he needs to be monitored in an ICU setting. Plan: Submassive Pulmonary Embolism - continue heparin drip - trend troponins until downtrending - f/u echo - if he clinically decompensates, would consider systemic TPA Acute hypoxic respiratory failure - wean o2 for goal spo2 > 90% - pulmonary toilet Admit to ICU. High risk for sudden cardiac . Luis A Altamirano MD Aug 14, 2017 22:54
[2017-08-15] VITALS (15 sets, daily range): BP systolic 146–172; BP diastolic 66–94; PULSE 79–114; RESP 13–33; TEMP 97.7–98.2; O2SAT 95–99
[2017-08-15 01:30] LABS: AUTOMATED NEUTROPHIL # 7.2 TH/MM3 (1.8-7.7); BASOPHIL # 0.1 TH/MM3 (0-0.2); BASOPHIL % 0.5 % (0.0-2.0); EOSINOPHIL # 0.1 TH/MM3 (0-0.4); EOSINOPHIL % 0.6 % (0.0-4.0); HEMATOCRIT 40.8 % (39.0-51.0); HEMO FLAGS DIFF FINAL; LYMPH % 15.8 % (9.0-44.0); LYMPHOCYTE # 1.6 TH/MM3 (1.0-4.8); MEAN CELL VOLUME 92.2 FL (80.0-100.0); MEAN CORPUSCULAR HEMOGLOBIN 31.2 PG (27.0-34.0); MEAN CORPUSCULAR HGB CONC 33.9 % (32.0-36.0); MONO % 11.7 % (0.0-8.0); NEUT % 71.4 % (16.0-70.0); PLATELET COUNT 119 TH/MM3 (150-450); RED BLOOD COUNT 4.43 MIL/MM3 (4.50-5.90); RED CELL DISTRIBUTION WIDTH 13.5 % (11.6-17.2); WHITE BLOOD COUNT 10.1 TH/MM3 (4.0-11.0)
[2017-08-15 01:49] LABS: APTT (PATIENT) 77.6 SEC (24.3-30.1)
[2017-08-15 02:27] LABS: ALKALINE PHOSPHATASE 88 U/L (45-117); ALT (GPT) 30 U/L (12-78); ANION GAP 10 MEQ/L (5-15); AST (GOT) 19 U/L (15-37); BICARBONATE 21.9 MEQ/L (21.0-32.0); BLOOD UREA NITROGEN 15 MG/DL (7-18); CHLORIDE 112 MEQ/L (98-107); GLOMERULAR FILTRATION RATE 74 ML/MIN (>89); POTASSIUM 3.5 MEQ/L (3.5-5.1); SODIUM (NA) 144 MEQ/L (136-145); TOTAL BILIRUBIN ADULT 0.6 MG/DL (0.2-1.0)
[2017-08-15] MEDS: hydrALAZINE HCL 20 MG/ML VIAL IV PUSH PRN (02:43)
[2017-08-15] MEDS: CHLORHEXIDINE GLUCONATE 2 % 1 PACK (2 CLOTHS)(taper/protocol) TOPICAL SCH (04:00)
[2017-08-15] MEDS: OFLOXACIN 0.3% OPTH SOLN 5 ML BTL EACH EYE SCH ×5 (08:14→20:00)
[2017-08-15] MEDS: amLODIPine BESYLATE 5 MG TAB PO SCH (08:14)
[2017-08-15] MEDS: DOCUSATE SODIUM 50 MG/SENNA 8.6 MG TAB PO SCH ×2 (08:14→20:04)
[2017-08-15] MEDS: SODIUM CHLORIDE 0.9% FLUSH 10 ML FLUSH IV FLUSH SCH (08:15)
[2017-08-15] MEDS: PANTOPRAZOLE SOD 20 MG DELAYED RELEASE TAB PO SCH (08:15)
[2017-08-15] MEDS: INSULIN ASPART SUPPLEMENTAL SCALE SQ SCH ×4 (08:21→21:00)
[2017-08-15] MEDS: CITALOPRAM HYDROBROMIDE 20 MG TAB PO SCH (08:22)
--- NOTE | 2017-08-15 08:35 | HHI.HP ---
History of Present Illness Service Family medicine Primary Care Physician Stan Rodriguez, DO Admission Diagnosis Multilobar PE with hypoxia Diagnoses: Past Family Social History Allergies: Coded Allergies: ciprofloxacin (Unverified Allergy, Severe, HIVES, ITCHING, 06/11/17) loratadine (Unverified Allergy, Severe, RASH,SWELLING, 06/11/17) glipizide (Unverified Allergy, Unknown, 06/11/17) metformin (Unverified Allergy, Unknown, 06/11/17) Uncoded Allergies: zithromax z brock (Allergy, Severe, Patient passed out, 12/07/16) Physical Exam Vital Signs Vital Signs Date Time Temp Pulse Resp B/P (MAP) Pulse Ox O2 Delivery O2 Flow Rate FiO2 08/15/17 06:00 91 08/15/17 04:55 98 Nasal Cannula 2.00 08/15/17 04:00 100 08/15/17 04:00 97.9 100 33 172/82 (112) 96 08/15/17 02:00 80 08/15/17 00:00 114 08/15/17 00:00 97.7 85 13 168/94 (118) 98 08/14/17 22:00 93 08/14/17 20:30 85 08/14/17 20:27 85 16 144/83 (103) 98 08/14/17 20:13 08/14/17 17:45 93 20 151/84 (106) 98 Nasal Cannula 08/14/17 15:48 99 Nasal Cannula 3.00 08/14/17 12:30 109 20 132/68 (89) 99 08/14/17 09:01 118 22 135/68 (90) 96 Nasal Cannula 3.00 Physical Exam GENERAL: This is a well-nourished, well-developed patient, in no apparent distress. SKIN: No rashes, ecchymoses or lesions. Cool and dry. HEAD: Atraumatic. Normocephalic. No temporal or scalp tenderness. EYES: Pupils equal round and reactive. Extraocular motions intact. No scleral icterus. No injection or drainage. ENT: Nose without bleeding, purulent drainage or septal hematoma. Throat without erythema, tonsillar hypertrophy or exudate. Uvula midline. Airway patent. NECK: Trachea midline. No JVD or lymphadenopathy. Supple, nontender, no meningeal signs. CARDIOVASCULAR: Regular rate and rhythm without murmurs, gallops, or rubs. RESPIRATORY: Clear to auscultation. Breath sounds equal bilaterally. No wheezes , rales, or rhonchi. GASTROINTESTINAL: Abdomen soft, non-tender, nondistended. No hepato-splenomegaly , or palpable masses. No guarding. MUSCULOSKELETAL: Extremities without clubbing, cyanosis, or edema. No joint tenderness, effusion, or edema noted. No calf tenderness. Negative Homans sign bilaterally. NEUROLOGICAL: Awake and alert. Cranial nerves II through XII intact. Motor and sensory grossly within normal limits. Five out of 5 muscle strength in all muscle groups. Normal speech. Laboratory Laboratory Tests Test 08/14/17 19:00 08/14/17 20:30 08/15/17 01:11 Troponin I 0.95 0.87 Nasal Screen MRSA (PCR) MRSA NOT DETECTED White Blood Count 10.1 Red Blood Count 4.43 Hemoglobin 13.8 Hematocrit 40.8 Mean Corpuscular Volume 92.2 Mean Corpuscular Hemoglobin 31.2 Mean Corpuscular Hemoglobin Concent 33.9 Red Cell Distribution Width 13.5 Platelet Count 119 Mean Platelet Volume 9.1 Neutrophils (%) (Auto) 71.4 Lymphocytes (%) (Auto) 15.8 Monocytes (%) (Auto) 11.7 Eosinophils (%) (Auto) 0.6 Basophils (%) (Auto) 0.5 Neutrophils # (Auto) 7.2 Lymphocytes # (Auto) 1.6 Monocytes # (Auto) 1.2 Eosinophils # (Auto) 0.1 Basophils # (Auto) 0.1 CBC Comment DIFF FINAL Differential Comment Activated Partial Thromboplast Time 77.6 Blood Urea Nitrogen 15 Creatinine 0.96 Random Glucose 130 Total Protein 6.0 Albumin 3.1 Calcium Level 9.4 Alkaline Phosphatase 88 Aspartate Amino Transf (AST/SGOT) 19 Alanine Aminotransferase (ALT/SGPT) 30 Total Bilirubin 0.6 Sodium Level 144 Potassium Level 3.5 Chloride Level 112 Carbon Dioxide Level 21.9 Anion Gap 10 Estimat Glomerular Filtration Rate 74 Result Diagram: 08/15/1711008/15/17110 Caprini VTE Risk Assessment Caprini Risk Assessment Model Point Value = 1 Point Value = 2 Point Value = 3 Point Value = 5 Age 41-60 Minor surgery BMI > 25 kg/m2 Swollen legs Varicose veins or History of unexplained or recurrent spontaneous Oral contraceptives or hormone replacement Sepsis (< 1 month) Serious lung disease, including pneumonia (< 1 month) Abnormal pulmonary function Acute myocardial infarction Congestive heart failure (< 1 month) History of inflammatory bowel disease Medical patient at bed rest Age 61-74 Arthroscopic surgery Major open surgery (> 45 min) Laparoscopic surgery (> 45 min) Malignancy Confined to bed (> 72 hours) Immobilizing plaster cast Central venous access Age >= 75 History of VTE Family history of VTE Factor V Leiden Prothrombin [id number] Lupus anticoagulant Anticardiolipin antibodies Elevated serum homocysteine Heparin-induced thrombocytopenia Other congenital or acquired thrombophilia Stroke (< 1 month) Elective arthroplasty Hip, pelvis, or leg fracture Acute spinal cord injury (< 1 month) Prophylaxis Regimen Total Risk Factor Score Risk Level Prophylaxis Regimen 0-1 Low Early ambulation 2 Moderate Order ONE of the following: *Sequential Compression Device (SCD) *Heparin 5000 units SQ BID 3-4 Higher Order ONE of the following medications: *Heparin 5000 units SQ TID *Enoxaparin/Lovenox 40 mg SQ daily (WT < 150 kg, CrCl > 30 mL/min) *Enoxaparin/Lovenox 30 mg SQ daily (WT < 150 kg, CrCl > 10-29 mL/min) *Enoxaparin/Lovenox 30 mg SQ BID (WT < 150 kg, CrCl > 30 mL/min) AND/OR *Sequential Compression Device (SCD) 5 or more Highest Order ONE of the following medications: *Heparin 5000 units SQ TID (Preferred with Epidurals) *Enoxaparin/Lovenox 40 mg SQ daily (WT < 150 kg, CrCl > 30 mL/min) *Enoxaparin/Lovenox 30 mg SQ daily (WT < 150 kg, CrCl > 10-29 mL/min) *Enoxaparin/Lovenox 30 mg SQ BID (WT < 150 kg, CrCl > 30 mL/min) AND *Sequential Compression Device (SCD) Flora Ornelas Aug 15, 2017 08:35
[2017-08-15] MEDS ORDERED: EMPAGLIFLOZIN 10 MG PO SCH (09:00)
[2017-08-15 11:31] LABS: APTT (PATIENT) 88.4 SEC (24.3-30.1)
--- NOTE | 2017-08-15 13:50 | HHI.HP ---
History of Present Illness Service Family medicine Primary Care Physician Stan Rodriguez, DO Admission Diagnosis Multilobar PE with hypoxia Diagnoses: History of Present Illness Patient is an 87-year-old male with who presents to emergency room with complaints of shortness of breath and abdominal pain. Per EMS report when they arrived on scene patient was diaphoretic, pale and pulse ox of 93%. He was found to be tachycardic. Patient reports that he woke up yesterday morning feeling short of breath, reports that his abdomen was uncomfortable, reports that he overall was not feeling well. Patient denies any cough, denies any fevers or chills, denies any overt chest pain. Patient reports that he does have history of COPD, with a past smoker but quit over 30 years ago. No recent illnesses or sick contacts. Patient reports that his abdomen was uncomfortable diffusely, reports that his abdomen is feeling much better upon presentation to the emergency room. He has been seen in office for abdominal discomfort. He has a past medical history of COPD, hypertension, hyperlipidemia, atrial fibrillation currently on Aggrenox for anticoagulation Review of Systems Constitutional: COMPLAINS OF: Fatigue Eyes: COMPLAINS OF: Blurred vision Respiratory: COMPLAINS OF: Shortness of breath, DENIES: Cough, Sputum production Cardiovascular: COMPLAINS OF: Chest pain, Palpitations, Lower Extremity Edema Gastrointestinal: COMPLAINS OF: Abdominal pain, DENIES: Constipation, Diarrhea Psychiatric: DENIES: Anxiety, Depression Past Family Social History Allergies: Coded Allergies: ciprofloxacin (Unverified Allergy, Severe, HIVES, ITCHING, 06/11/17) loratadine (Unverified Allergy, Severe, RASH,SWELLING, 06/11/17) glipizide (Unverified Allergy, Unknown, 06/11/17) metformin (Unverified Allergy, Unknown, 06/11/17) Uncoded Allergies: zithromax z brock (Allergy, Severe, Patient passed out, 12/07/16) Past Medical History 1. History of COPD. 2. Atrial fibrillation. 3. History of TIA. 4. History of chronic back pain. 5. Cataract surgery. Past Surgical History Left eye cataract surgery appendectomy Active Ordered Medications Current Medications Medications (Trade) Dose Ordered Sig/Marion Route Start Time Stop Time Status Last Admin (NS Flush) 2 ml UNSCH PRN IV FLUSH 08/14/17 15:15 (NS Flush) 2 ml BID IV FLUSH 08/14/17 21:00 08/15/17 08:15 (Tylenol) 650 mg Q4H PRN PO 08/14/17 15:15 08/15/17 03:33 (Zofran Inj) 4 mg Q6H PRN IVP 08/14/17 15:15 08/15/17 02:43 (Lovenox Inj) 40 mg Q24H SQ 08/14/17 16:00 Future Hold 08/14/17 16:00 (Narcan Inj) 0.4 mg UNSCH PRN IV PUSH 08/14/17 15:15 (Laura-Colace) 1 tab BID PO 08/14/17 21:00 08/15/17 08:14 (Milk Of Magnesia Liq) 30 ml Q12H PRN PO 08/14/17 15:15 (Senokot) 17.2 mg Q12H PRN PO 08/14/17 15:15 (Dulcolax Supp) 10 mg DAILY PRN RECTAL 08/14/17 15:15 (Lactulose Liq) 30 ml DAILY PRN PO 08/14/17 15:15 08/15/17 08:13 Sodium Chloride 1,000 ml @ 84 mls/hr [id number] IV 08/14/17 15:15 08/14/17 15:15 (NovoLOG SUPPLEMENTAL SCALE) 1 ACHS SLIDING SCALE SQ 08/14/17 17:00 08/15/17 08:21 (Norvasc) 10 mg DAILY PO 08/15/17 09:00 08/15/17 08:14 (CeleXA) 20 mg DAILY PO 08/15/17 09:00 08/15/17 08:22 (Ocuflox 0.3% Opth Soln) 1 drop Q4HR EACH EYE 08/14/17 16:00 08/15/17 12:09 Patient Own Medication PT OWN MED: (Empagliflozin (Jardian... DAILY PO 08/15/17 09:00 Future Hold (Protonix) 20 mg DAILY PO 08/15/17 09:00 08/15/17 08:15 Heparin Sodium/ Dextrose 250 ml @ 15 mls/hr TITRATE PRN IV 08/14/17 16:30 08/14/17 18:59 Miscellaneous Information Patient in critical care unit? Ass... Q361D .XX 08/14/17 20:30 (Chlorhexidine 2% Cloth) 3 pack DAILY@04 TOPICAL 08/15/17 04:00 08/19/17 04:01 08/15/17 04:00 (Chlorhexidine 2% Cloth) 3 pack UNSCH PRN TOPICAL 08/14/17 20:30 08/19/17 20:27 (Pepcid Inj) 20 mg DAILY@2100 IV PUSH 08/15/17 21:00 (Apresoline Inj) 5 mg Q30M PRN IV PUSH 08/15/17 02:15 08/15/17 02:43 Family History Mother from cardiac arrest Father ETOH abuse Social History Lives with family Physical Exam Vital Signs Vital Signs Date Time Temp Pulse Resp B/P (MAP) Pulse Ox O2 Delivery O2 Flow Rate FiO2 08/15/17 12:00 98.2 90 15 172/84 (113) 99 08/15/17 12:00 90 08/15/17 10:00 100 18 169/79 (109) 95 08/15/17 10:00 100 08/15/17 09:00 104 20 146/83 (104) 99 08/15/17 09:00 104 08/15/17 08:00 98.0 95 22 166/91 (116) 96 08/15/17 08:00 96 Nasal Cannula 2.00 08/15/17 08:00 95 08/15/17 06:00 91 08/15/17 04:55 98 Nasal Cannula 2.00 08/15/17 04:00 100 08/15/17 04:00 97.9 100 33 172/82 (112) 96 08/15/17 02:00 80 08/15/17 00:00 114 08/15/17 00:00 97.7 85 13 168/94 (118) 98 08/14/17 22:00 93 08/14/17 20:30 85 08/14/17 20:27 85 16 144/83 (103) 98 08/14/17 20:13 08/14/17 17:45 93 20 151/84 (106) 98 Nasal Cannula 08/14/17 15:48 99 Nasal Cannula 3.00 Physical Exam GENERAL: Alert and oriented. HEENT: Normocephalic. Atraumatic. Pupils equal, round, reactive, conjugate. Mucous membranes are moist NECK: Trachea is midline. There is no JVD. CHEST: Mildly tachypneic. Equal chest rise. CARDIOVASCULAR: Tachycardic rate, regular rhythm. Sinus by telemetry. ABDOMEN: Soft, nontender, nondistended. No guarding. MUSCULOSKELETAL: Pulses 2+. No peripheral edema. NEUROLOGICAL: Moves all extremity Laboratory Laboratory Tests Test 08/14/17 19:00 08/14/17 20:30 08/15/17 01:11 08/15/17 11:09 Troponin I 0.95 0.87 Nasal Screen MRSA (PCR) MRSA NOT DETECTED White Blood Count 10.1 Red Blood Count 4.43 Hemoglobin 13.8 Hematocrit 40.8 Mean Corpuscular Volume 92.2 Mean Corpuscular Hemoglobin 31.2 Mean Corpuscular Hemoglobin Concent 33.9 Red Cell Distribution Width 13.5 Platelet Count 119 Mean Platelet Volume 9.1 Neutrophils (%) (Auto) 71.4 Lymphocytes (%) (Auto) 15.8 Monocytes (%) (Auto) 11.7 Eosinophils (%) (Auto) 0.6 Basophils (%) (Auto) 0.5 Neutrophils # (Auto) 7.2 Lymphocytes # (Auto) 1.6 Monocytes # (Auto) 1.2 Eosinophils # (Auto) 0.1 Basophils # (Auto) 0.1 CBC Comment DIFF FINAL Differential Comment Activated Partial Thromboplast Time 77.6 88.4 Blood Urea Nitrogen 15 Creatinine 0.96 Random Glucose 130 Total Protein 6.0 Albumin 3.1 Calcium Level 9.4 Alkaline Phosphatase 88 Aspartate Amino Transf (AST/SGOT) 19 Alanine Aminotransferase (ALT/SGPT) 30 Total Bilirubin 0.6 Sodium Level 144 Potassium Level 3.5 Chloride Level 112 Carbon Dioxide Level 21.9 Anion Gap 10 Estimat Glomerular Filtration Rate 74 Result Diagram: 08/15/1711008/15/17110 Imaging Last 48 hours Impressions Abdomen/Pelvis CT 08/14/17916 Signed Impressions: Service Date/Time: Monday, August 14, 2017 15:29 - CONCLUSION: 1. See the CTA of the chest reported separately. 2. 3.8 cm indeterminate lesion involving the lower pole the left kidney. This may relate to a complex cyst, however, a solid lesion cannot be excluded. Consider ultrasound of the kidneys to further evaluate. 3. Enlarged prostate. Jovani Jenkins Jr., MD CT Angiography 08/14/17 0912 Signed Impressions: Service Date/Time: Monday, August 14, 2017 15:26 - CONCLUSION: 1. Significant volume pulmonary emboli bilaterally. Jovani Jenkins Jr., MD Chest X-Ray 08/14/17 0755 Signed Impressions: Service Date/Time: Monday, August 14, 2017 08:13 - CONCLUSION: No acute cardiopulmonary abnormality is identified. Jace Ron MD [place] VTE Risk Assessment Caprini VTE Risk Assessment: Mod/High Risk (score >= 2) Caprini Risk Assessment Model Point Value = 1 Point Value = 2 Point Value = 3 Point Value = 5 Age 41-60 Minor surgery BMI > 25 kg/m2 Swollen legs Varicose veins or History of unexplained or recurrent spontaneous Oral contraceptives or hormone replacement Sepsis (< 1 month) Serious lung disease, including pneumonia (< 1 month) Abnormal pulmonary function Acute myocardial infarction Congestive heart failure (< 1 month) History of inflammatory bowel disease Medical patient at bed rest Age 61-74 Arthroscopic surgery Major open surgery (> 45 min) Laparoscopic surgery (> 45 min) Malignancy Confined to bed (> 72 hours) Immobilizing plaster cast Central venous access Age >= 75 History of VTE Family history of VTE Factor V Leiden Prothrombin [id number] Lupus anticoagulant Anticardiolipin antibodies Elevated serum homocysteine Heparin-induced thrombocytopenia Other congenital or acquired thrombophilia Stroke (< 1 month) Elective arthroplasty Hip, pelvis, or leg fracture Acute spinal cord injury (< 1 month) Prophylaxis Regimen Total Risk Factor Score Risk Level Prophylaxis Regimen 0-1 Low Early ambulation 2 Moderate Order ONE of the following: *Sequential Compression Device (SCD) *Heparin 5000 units SQ BID 3-4 Higher Order ONE of the following medications: *Heparin 5000 units SQ TID *Enoxaparin/Lovenox 40 mg SQ daily (WT < 150 kg, CrCl > 30 mL/min) *Enoxaparin/Lovenox 30 mg SQ daily (WT < 150 kg, CrCl > 10-29 mL/min) *Enoxaparin/Lovenox 30 mg SQ BID (WT < 150 kg, CrCl > 30 mL/min) AND/OR *Sequential Compression Device (SCD) 5 or more Highest Order ONE of the following medications: *Heparin 5000 units SQ TID (Preferred with Epidurals) *Enoxaparin/Lovenox 40 mg SQ daily (WT < 150 kg, CrCl > 30 mL/min) *Enoxaparin/Lovenox 30 mg SQ daily (WT < 150 kg, CrCl > 10-29 mL/min) *Enoxaparin/Lovenox 30 mg SQ BID (WT < 150 kg, CrCl > 30 mL/min) AND *Sequential Compression Device (SCD) Assessment and Plan Problem List: (1) Pulmonary embolism ICD Codes: I26.99 - Other pulmonary embolism without acute cor pulmonale Status: Acute (2) Hypoxia ICD Codes: R09.02 - Hypoxemia Status: Acute (3) HTN (hypertension) ICD Codes: I10 - Essential (primary) hypertension (4) Depression ICD Codes: F32.9 - Major depressive disorder, single episode, unspecified (5) Diabetes ICD Codes: E11.9 - Type 2 diabetes mellitus without complications Assessment and Plan 08/15/17 Submassive PE: Continue heparin drip. Trending troponins. EDC0 ordered and pending. Per behaviorist if clinicall decompensate would consider systemic TPA. O2 sats good on room air. US ordered of bilateral lower extremity. Hypertension; B/P elevated. On norvasc and PRN hydralazine. Will add lisinopril daily and monitor. Depression; Continue home medications Lesion noted on left kidney: Per recommendations on CT scan Ultrasound ordered. Diabetes: BS AC HS on SS will monitor. Abdominal discomfort: GI consulted. Labs ordered for AM On GI prophylaxis I and the RN LONG TERM CARE have both examined this patient and reviewed this and I agree with these findings and plan of care. Stan Rodriguez DO Problem Qualifiers (1) Pulmonary embolism: Flora Ornelas RN LONG TERM CARE Aug 15, 2017 13:50
--- NOTE | 2017-08-15 14:04 | PD.CARD.PN ---
Subjective Subjective Remarks Primary complaint is abdominal pain. Remains tachycardiac. BP elevated. No hypoxia. (Sophie Finn) Objective Medications Current Medications Medications (Trade) Dose Ordered Sig/Marion Route Start Time Stop Time Status Last Admin (NS Flush) 2 ml UNSCH PRN IV FLUSH 08/14/17 15:15 (NS Flush) 2 ml BID IV FLUSH 08/14/17 21:00 08/15/17 08:15 (Tylenol) 650 mg Q4H PRN PO 08/14/17 15:15 08/15/17 03:33 (Zofran Inj) 4 mg Q6H PRN IVP 08/14/17 15:15 08/15/17 02:43 (Lovenox Inj) 40 mg Q24H SQ 08/14/17 16:00 Future Hold 08/14/17 16:00 (Narcan Inj) 0.4 mg UNSCH PRN IV PUSH 08/14/17 15:15 (Laura-Colace) 1 tab BID PO 08/14/17 21:00 08/15/17 08:14 (Milk Of Magnesia Liq) 30 ml Q12H PRN PO 08/14/17 15:15 (Senokot) 17.2 mg Q12H PRN PO 08/14/17 15:15 (Dulcolax Supp) 10 mg DAILY PRN RECTAL 08/14/17 15:15 (Lactulose Liq) 30 ml DAILY PRN PO 08/14/17 15:15 08/15/17 08:13 Sodium Chloride 1,000 ml @ 84 mls/hr [id number] IV 08/14/17 15:15 08/14/17 15:15 (NovoLOG SUPPLEMENTAL SCALE) 1 ACHS SLIDING SCALE SQ 08/14/17 17:00 08/15/17 08:21 (Norvasc) 10 mg DAILY PO 08/15/17 09:00 08/15/17 08:14 (CeleXA) 20 mg DAILY PO 08/15/17 09:00 08/15/17 08:22 (Ocuflox 0.3% Opth Soln) 1 drop Q4HR EACH EYE 08/14/17 16:00 08/15/17 12:09 Patient Own Medication PT OWN MED: (Empagliflozin (Jardian... DAILY PO 08/15/17 09:00 Future Hold (Protonix) 20 mg DAILY PO 08/15/17 09:00 08/15/17 08:15 Heparin Sodium/ Dextrose 250 ml @ 15 mls/hr TITRATE PRN IV 08/14/17 16:30 08/14/17 18:59 Miscellaneous Information Patient in critical care unit? Ass... Q361D .XX 08/14/17 20:30 (Chlorhexidine 2% Cloth) 3 pack DAILY@04 TOPICAL 08/15/17 04:00 08/19/17 04:01 08/15/17 04:00 (Chlorhexidine 2% Cloth) 3 pack UNSCH PRN TOPICAL 08/14/17 20:30 08/19/17 20:27 (Pepcid Inj) 20 mg DAILY@2100 IV PUSH 08/15/17 21:00 (Apresoline Inj) 5 mg Q30M PRN IV PUSH 08/15/17 02:15 08/15/17 02:43 Vital Signs / I&O Vital Signs Date Time Temp Pulse Resp B/P (MAP) Pulse Ox O2 Delivery O2 Flow Rate FiO2 08/15/17 12:00 98.2 90 15 172/84 (113) 99 08/15/17 12:00 90 08/15/17 10:00 100 18 169/79 (109) 95 08/15/17 10:00 100 08/15/17 09:00 104 20 146/83 (104) 99 08/15/17 09:00 104 08/15/17 08:00 98.0 95 22 166/91 (116) 96 08/15/17 08:00 96 Nasal Cannula 2.00 08/15/17 08:00 95 08/15/17 06:00 91 08/15/17 04:55 98 Nasal Cannula 2.00 08/15/17 04:00 100 08/15/17 04:00 97.9 100 33 172/82 (112) 96 08/15/17 02:00 80 08/15/17 00:00 114 08/15/17 00:00 97.7 85 13 168/94 (118) 98 08/14/17 22:00 93 08/14/17 20:30 85 08/14/17 20:27 85 16 144/83 (103) 98 08/14/17 20:13 08/14/17 17:45 93 20 151/84 (106) 98 Nasal Cannula 08/14/17 15:48 99 Nasal Cannula 3.00 I/O 08/14/17 08/14/17 08/14/17 08/15/17 08/15/17 08/15/17 06:59 14:59 22:59 06:59 14:59 22:59 Intake Total 600 ml Output Total 300 ml 550 ml Balance 600 ml -300 ml -550 ml Intake IV Total 600 ml Output Urine Total 300 ml 550 ml # Voids 1 6 # Bowel Movements 0 Physical Exam GENERAL: Elderly male in the ICU SKIN: Warm and dry. HEAD: Normocephalic. EYES: No scleral icterus. No injection or drainage. NECK: Supple, trachea midline. CARDIOVASCULAR: Tachycardia, regular rhythm RESPIRATORY: Breath sounds equal bilaterally. No accessory muscle use. GASTROINTESTINAL: Abdomen soft, non-tender, nondistended. MUSCULOSKELETAL: No cyanosis, mild BLE edema BACK: Nontender without obvious deformity. Laboratory Laboratory Tests Test 08/14/17 19:00 08/14/17 20:30 08/15/17 01:11 08/15/17 11:09 Troponin I 0.95 NG/ML 0.87 NG/ML Nasal Screen MRSA (PCR) MRSA NOT DETECTED White Blood Count 10.1 TH/MM3 Red Blood Count 4.43 MIL/MM3 Hemoglobin 13.8 GM/DL Hematocrit 40.8 % Mean Corpuscular Volume 92.2 FL Mean Corpuscular Hemoglobin 31.2 PG Mean Corpuscular Hemoglobin Concent 33.9 % Red Cell Distribution Width 13.5 % Platelet Count 119 TH/MM3 Mean Platelet Volume 9.1 FL Neutrophils (%) (Auto) 71.4 % Lymphocytes (%) (Auto) 15.8 % Monocytes (%) (Auto) 11.7 % Eosinophils (%) (Auto) 0.6 % Basophils (%) (Auto) 0.5 % Neutrophils # (Auto) 7.2 TH/MM3 Lymphocytes # (Auto) 1.6 TH/MM3 Monocytes # (Auto) 1.2 TH/MM3 Eosinophils # (Auto) 0.1 TH/MM3 Basophils # (Auto) 0.1 TH/MM3 CBC Comment DIFF FINAL Differential Comment Activated Partial Thromboplast Time 77.6 SEC 88.4 SEC Blood Urea Nitrogen 15 MG/DL Creatinine 0.96 MG/DL Random Glucose 130 MG/DL Total Protein 6.0 GM/DL Albumin 3.1 GM/DL Calcium Level 9.4 MG/DL Alkaline Phosphatase 88 U/L Aspartate Amino Transf (AST/SGOT) 19 U/L Alanine Aminotransferase (ALT/SGPT) 30 U/L Total Bilirubin 0.6 MG/DL Sodium Level 144 MEQ/L Potassium Level 3.5 MEQ/L Chloride Level 112 MEQ/L Carbon Dioxide Level 21.9 MEQ/L Anion Gap 10 MEQ/L Estimat Glomerular Filtration Rate 74 ML/MIN Imaging Last 72 hours Impressions Abdomen/Pelvis CT 08/14/17916 Signed Impressions: Service Date/Time: Monday, August 14, 2017 15:29 - CONCLUSION: 1. See the CTA of the chest reported separately. 2. 3.8 cm indeterminate lesion involving the lower pole the left kidney. This may relate to a complex cyst, however, a solid lesion cannot be excluded. Consider ultrasound of the kidneys to further evaluate. 3. Enlarged prostate. Jovani Jenkins Jr., MD CT Angiography 08/14/17911 Signed Impressions: Service Date/Time: Monday, August 14, 2017 15:26 - CONCLUSION: 1. Significant volume pulmonary emboli bilaterally. Jovani Jenkins Jr., MD Chest X-Ray 08/14/17 0755 Signed Impressions: Service Date/Time: Monday, August 14, 2017 08:13 - CONCLUSION: No acute cardiopulmonary abnormality is identified. Jace Ron MD (Sophie Finn) Assessment and Plan Assessment and Plan 1. Extensive pulmonary embolism 2. Paroxysmal atrial fibrillation 3. Hypertension, 4. Diabetes mellitus. 5. Dyslipidemia. 6. COPD. 7. History of TIA. 8. Elevated troponin PLAN Continue monitoring in the ICU Continue heparin Pending echocardiogram results The patient was seen and evaluated by Dr Sebastian, who is covering for Dr Chin. Dr Sebastian completed face to face encounter and physical exam and participated in evaluation and management. (Sophie Finn) Assessment and Plan The exam, history, and the medical decision-making described in the above note were completed with the assistance of the mid-level provider. I reviewed and agree with the findings presented. I attest that I had a [id number] encounter with the patient on the same day, and personally performed and documented my assessment and findings in the medical record. Large PE hemodynamically stable, as per Dr Chin doing better. (Josiah Sebastian MD) Sophie Finn Aug 15, 2017 14:04 Josiah Sebastian MD Aug 15, 2017 16:19
[2017-08-15] MEDS: SODIUM CHLOR 0.9% 1000 ML INJ 1,000 ML IV SCH ×2 (15:05→20:07)
[2017-08-15] MEDS: HEPARIN-D5W 25,000 U/250 ML 250 ML IV PRN (15:57)
--- NOTE | 2017-08-15 16:08 | HHI.PR ---
Subjective Remarks 82 YOWM with SOB,Bilat PE On Heparin drip Breathing better at BS Last time he fell was 2 months ago Some time wakes up with stomach discomfort, not pain Objective Vital Signs Vital Signs Date Time Temp Pulse Resp B/P (MAP) Pulse Ox O2 Delivery O2 Flow Rate FiO2 08/15/17 12:00 98.2 90 15 172/84 (113) 99 08/15/17 12:00 90 08/15/17 10:00 100 18 169/79 (109) 95 08/15/17 10:00 100 08/15/17 09:00 104 20 146/83 (104) 99 08/15/17 09:00 104 08/15/17 08:00 98.0 95 22 166/91 (116) 96 08/15/17 08:00 96 Nasal Cannula 2.00 08/15/17 08:00 95 08/15/17 06:00 91 08/15/17 04:55 98 Nasal Cannula 2.00 08/15/17 04:00 100 08/15/17 04:00 97.9 100 33 172/82 (112) 96 08/15/17 02:00 80 08/15/17 00:00 114 08/15/17 00:00 97.7 85 13 168/94 (118) 98 08/14/17 22:00 93 08/14/17 20:30 85 08/14/17 20:27 85 16 144/83 (103) 98 08/14/17 20:13 08/14/17 17:45 93 20 151/84 (106) 98 Nasal Cannula I/O 08/14/17 08/14/17 08/14/17 08/15/17 08/15/17 08/15/17 07:00 15:00 23:00 07:00 15:00 23:00 Intake Total 600 ml Output Total 300 ml 550 ml Balance 600 ml -300 ml -550 ml Intake IV Total 600 ml Output Urine Total 300 ml 550 ml # Voids 1 6 # Bowel Movements 0 Result Diagram: 08/15/1711008/15/17110 Objective Remarks GENERAL: MBMN WM, mild sob SKIN: Warm and dry. HEAD: Normocephalic. EYES: No scleral icterus. No injection or drainage. NECK: Supple, trachea midline. No JVD or lymphadenopathy. CARDIOVASCULAR: Regular rate and rhythm without murmurs, gallops, or rubs. RESPIRATORY: Breath sounds equal bilaterally. No accessory muscle use. GASTROINTESTINAL: Abdomen soft, non-tender, nondistended. MUSCULOSKELETAL: No cyanosis, or edema. BACK: Nontender without obvious deformity. No CVA tenderness. A/P Assessment and Plan Bilat PE COPD HTN H/O TIA PLAN: IV Heparin Monitor PTT Will need oral anticoagulation Supplement 02 Dw pt and his at BS Nicho Reece MD Aug 15, 2017 16:08
[2017-08-15] MEDS: LISINOPRIL 20 MG TAB PO SCH (17:03)
--- NOTE | 2017-08-15 17:47 | ECHRPT ---
Indication: pulmonary embolism CONCLUSIONS Normal left ventricular size. Wall thickness is normal. No regional wall motion abnormalities are present. Pulmonary arterial systolic pressure could not be estimated due to an insufficient tricuspid valve regurgitation doppler jet for measurement. Trivial pulmonary valve regurgitation. The inferior vena cava was not well visualized. BP: 172 / 82 HR: 100 Rhythm: Sinus MEASUREMENTS (Male / Female) Normal Values Technical Quality:Technically difficult study 2D ECHO LV Ejection Fraction MOD 4C 67.2 % LV Cardiac Index MOD 4C 2254.7 cm/minm LV Ejection Fraction 4C AL 68.1 % LV Cardiac Index 4C AL 2372.7 cm/minm M-MODE Aortic Root Diameter MM 3.7 cm AV Cusp Separation MM 2.1 cm DOPPLER AV Peak Velocity 115.0 cm/s AV Peak Gradient 5.3 mmHg LVOT Peak Velocity 94.3 cm/s LVOT Peak Gradient 3.6 mmHg MV Area PHT 5.5 cm LV E' Lateral Velocity 13.9 cm/s LV E' Septal Velocity 4.8 cm/s PV Peak Velocity 65.2 cm/s PV Peak Gradient 1.7 mmHg FINDINGS LEFT VENTRICLE The left ventricular systolic function is normal with an estimated ejection fraction in the range of 60-65%. Normal left ventricular size. Wall thickness is normal. No regional wall motion abnormalities are present. RIGHT VENTRICLE Normal right ventricular size and systolic function. LEFT ATRIUM The left atrial size is normal. RIGHT ATRIUM The right atrial size is normal. ATRIAL SEPTUM Normal atrial septal thickness without atrial level shunting by limited color doppler interrogation. AORTA The aortic root and proximal ascending aorta are normal in size on limited imaging. MITRAL VALVE Structurally normal mitral valve. No mitral valve stenosis or regurgitation. AORTIC VALVE Trileaflet aortic valve. No aortic valve stenosis or regurgitation. TRICUSPID VALVE Pulmonary arterial systolic pressure could not be estimated due to an insufficient tricuspid valve regurgitation doppler jet for measurement. PULMONARY VALVE Trivial pulmonary valve regurgitation. VESSELS The inferior vena cava was not well visualized. PERICARDIUM No pericardial effusion. Herson Phipps MD, FACC (Electronically Signed) Final Date:15 August 2017 17:46
--- NOTE | 2017-08-15 19:03 | HHI.CCPN ---
Subjective Remarks/Hospital Course Patient is an 87-year-old male with history of COPD, hypertension, hyperlipidemia, atrial fibrillation currently on Aggrenox for anticoagulation, presents to emergency room with complaints of shortness of breath and abdominal pain. Patient reports that he woke up this morning feeling short of breath, reports that his abdomen was uncomfortable, reports that he overall was not feeling well. Patient denies any cough, denies any fevers or chills, denies any overt chest pain. Patient reports that he does have history of COPD, with a past smoker but quit over 30 years ago. Denies history of CHF. Patient reports that he does not use oxygen at home at baseline, reports no recent illnesses or sick contacts. Patient reports that his abdomen was uncomfortable diffusely, reports that his abdomen is feeling much better upon presentation to the emergency room. Subjective: 08/15: No acute events overnight. Patient continues on heparin infusion, O2 via 2 L nasal cannula no dyspnea. Patient resting comfortably, patient complained of chronic back pain normally takes hydrocodone every 6 hours when necessary for arthritic pain will add to medication regimen. Objective Vital Signs Date Time Temp Pulse Resp B/P (MAP) Pulse Ox O2 Delivery O2 Flow Rate FiO2 08/15/17 18:00 94 08/15/17 16:00 97.8 15 159/86 (110) 95 08/15/17 08:00 Nasal Cannula 2.00 Intake and Output 08/15/17 08/15/17 08/16/17 08:00 16:00 00:00 Intake Total 2113 ml Output Total 550 ml 3030 ml Balance -550 ml -917 ml Result Diagram: 08/15/1711008/15/17110 Imaging Last Impressions Abdomen/Pelvis CT 08/14/17916 Signed Impressions: Service Date/Time: Monday, August 14, 2017 15:29 - CONCLUSION: 1. See the CTA of the chest reported separately. 2. 3.8 cm indeterminate lesion involving the lower pole the left kidney. This may relate to a complex cyst, however, a solid lesion cannot be excluded. Consider ultrasound of the kidneys to further evaluate. 3. Enlarged prostate. Jovani Jenkins Jr., MD CT Angiography 08/14/17911 Signed Impressions: Service Date/Time: Monday, August 14, 2017 15:26 - CONCLUSION: 1. Significant volume pulmonary emboli bilaterally. Jovani Jenkins Jr., MD Chest X-Ray 08/14/17 0755 Signed Impressions: Service Date/Time: Monday, August 14, 2017 08:13 - CONCLUSION: No acute cardiopulmonary abnormality is identified. Jace Ron MD Objective Remarks GENERAL: Frail elderly male, lying in bed, in no respiratory distress HEENT: Normocephalic. Atraumatic. Pupils equal, round, reactive, conjugate. Mucous membranes are moist. Patient is hard of hearing usually wears hearing aids NECK: Trachea is midline. There is no JVD. CHEST: Normal respiratory rate. Equal chest rise. On 3 L nasal cannula oxygen. SPO2 98% CARDIOVASCULAR: Tachycardic rate, regular rhythm. Sinus by telemetry. ABDOMEN: Soft, nontender, nondistended. No guarding. MUSCULOSKELETAL: Pulses 2+. No peripheral edema. NEUROLOGICAL: RASS 0. Awake and alert. Follows commands, moves extremities 4. A/P Assessment and Plan Assessment: 87-year-old male with new large clot burden pulmonary emboli and associated shortness of breath. I discussed case with his primary team and we have agreed based on his age and associated bleeding risk, that systemic TPA for submassive pulmonary embolism should be avoided unless he clinically decompensates, and we should pursue therapeutic echo regulation with heparin drip transitioning to oral anticoagulation. I agree with this plan. I also agree with Dr. Chin's plan to obtain TTE to eval right ventricular strain. Certainly he remains very medically high risk for sudden cardiac over the next 30 days and high risk for long-term WHO Class IV Pulmonary Hypertension. High risk for decompensation and I agree he needs to be monitored in an ICU setting. Plan: Submassive Pulmonary Embolism - continue heparin drip - trend troponins until downtrending - 08/15 echo-no regional wall motion abnormalities. Ejection fraction 67%. PA S/P unable to be evaluated secondary to incompetent tricuspid valve - if he clinically decompensates, would consider systemic TPA Acute hypoxic respiratory failure - wean o2 for goal spo2 > 90%, early on nasal cannula 3 L/m - pulmonary toilet Chronic pain syndrome Osteoarthritis Hydrocodone-acetaminophen 103 25 mg every 6 hours when necessary for pain 6-10 Constipation Colace 100 mg 3 times a day scheduled doses When necessary bowel regimen Dispo: This patient remains critically ill with one or more organ systems which are or may become a threat to life. I have spent in excess of 30 minutes discontinuously in the care and management of this patient. This time is exclusive of procedures, and includes, but is not limited to, evaluation of the patient, review of the medical record, discussions with family, consultants, nursing staff, or respiratory therapy, and documentation in the medical record. Patient is at high risk for sudden cardiac . Discussed with INTERVENTIONAL PHYSICIAN at bedside and patient's . All questions answered. Physician Florence Ferguson MD Aug 15, 2017 19:03
[2017-08-15] MEDS ORDERED: ACETAMINOPHEN/HYDROcodone 325 MG/10 MG TAB PO PRN (19:15)
[2017-08-15] MEDS ORDERED: DICYCLOMINE HCL 20 MG TAB PO PRN (20:00)
[2017-08-15] MEDS ORDERED: SIMETHICONE 80 MG CHEWABLE TAB CHEW PRN (20:00)
--- NOTE | 2017-08-15 20:09 | RADRPT ---
EXAM DATE/TIME: 08/15/2017 16:43 [facility] COMPARISON: No previous studies available for comparison. INDICATIONS : Bilateral leg swelling. MEDICAL HISTORY : Carcinoma, prostate. Hypercholesterolemia. Arthritis. Macular degeneration. Hearing loss. TIA x2. Syn cope. HTN. COPD. Asbestosis. Dyspnea. GERD. Diabetes. Skin cancer. SURGICAL HISTORY : Appendectomy. Left eye cataract extraction. ENCOUNTER: Initial ACUITY: 1 day PAIN SCORE: 0/10 LOCATION: Bilateral leg. TECHNIQUE: Venous ultrasound of the left and right leg was performed from the inguinal ligament to the proximal calf. Real-time, color Doppler and spectral tracing, compression and augmentation techniques were us ed. FINDINGS: RIGHT LEG: There is normal compressibility of the deep venous system from the inguinal region to the proximal ca lf. No echogenic clot is seen in the lumen of the common femoral, femoral, popliteal, and posterior tibial veins. There is a normal response of the venous system to proximal and distal augmentation an d respiration. Iliac vein open patent. LEFT LEG: There is absence of flow compressibility of the peroneal vein consistent with DVT CONCLUSION: Positive for DVT left peroneal vein. Right lower extremity is negative for DVT Salvador Aguilar MD on August 15, 2017 at 20:05 Board Certified Radiologist. This report was verified electronically.
--- NOTE | 2017-08-15 20:12 | RADRPT ---
EXAM DATE/TIME: 08/15/2017 16:29 [facility] COMPARISON: CT ABDOMEN & PELVIS W CONTRAST, August 14, 2017, 15:29. EXTERNAL COMPARISON : [facility], CT ABDOMEN & PELVIS W CONTRAST, June 16, 2012 INDICATIONS : Obstruction. Lesion on left kidney. MEDICAL HISTORY : Carcinoma, prostate. Hypercholesterolemia. Arthritis. Macular degeneration. Hearing loss. TIA x2. Syn cope. HTN. COPD. Asbestosis. Dyspnea. GERD. Diabetes. Skin cancer. SURGICAL HISTORY : Appendectomy. Left eye cataract extraction. ENCOUNTER: Initial ACUITY: 1 day PAIN SCORE: 0/10 LOCATION: Bilateral flank MEASUREMENTS: RIGHT KIDNEY: 11.2 x 5.3 x 5.9 cm LEFT KIDNEY: 10.8 x 4.7 x 5.0 cm FINDINGS: RIGHT KIDNEY: Renal cortex is normal in thickness and echotexture. No hydronephrosis, stone, or mass. LEFT KIDNEY: Renal cortex is normal thickness and echotexture. There is no evidence of hydronephrosis or stone. 2 simple cysts the lower pole are appreciated respectively 2.7 x 3.6 and 2.5 cm in size. BLADDER: Prostate appears enlarged encroaches upon the base the bladder. CONCLUSION: 2 simple type cysts in the lower pole the left kidney 2.7 x 3.6 and 2.5 x 2.1 cm in size. Prostate enlargement encroach upon the base the urinary bl adder otherwise negative with no evidence of obstructive uropat hy, hydronephrosis or hydroureter Salvador Aguilar MD on August 15, 2017 at 20:08 Board Certified Radiologist. This report was verified electronically.
[2017-08-15] MEDS ORDERED: FAMOTIDINE 20 MG/2 ML VIAL IV PUSH SCH (21:00)
[2017-08-15 21:03] LABS: APTT (PATIENT) 58.9 SEC (24.3-30.1)
--- NOTE | 2017-08-15 21:45 | MB ---
cc: AMINAH CELIS M.D. DATE OF CONSULTATION 08/15/17 DATE OF 1930 REASON FOR GI CONSULT Evaluation of abdominal discomfort. HISTORY OF PRESENT ILLNESS This is a pleasant 87-year-old male who was admitted with shortness of breath and abdominal pain. He was diaphoretic, pale with diminished O2 saturation. He was found to be tachycardic as well. This occurred suddenly. He also developed some diffuse abdominal discomfort. He has a history of COPD. The patient had a CT angiogram which reveals significant bilateral pulmonary emboli. He has been started on IV heparin. He has been feeling better. CT of the abdomen/pelvis did not reveal an acute GI pathology. There was a 3.8 cm indeterminate lesion of the lower pole of the left kidney which may relate to a complex cyst. Liver enzymes were normal. Troponins have been slightly elevated, this is being followed closely. Hemoglobin was 13.8. White count was 10.1. The patient did have a significant bowel movement. He has been feeling better since then. His abdominal pain has lessened. He does have bouts of constipation. I was asked to evaluate him further. He denies any rectal bleeding. ALLERGIES CIPRO, LORATADINE, GLIPIZIDE, METFORMIN AND ZITHROMAX. PAST HISTORY His past history includes a-fib, TIA, chronic back pain, cataract surgery, COPD, eye surgery, appendectomy. FAMILY HISTORY Negative from a GI standpoint. SOCIAL HISTORY He denies alcohol, illicit drug use. REVIEW OF SYSTEMS The twelve-point review of systems is as stated in the HPI. He has had no nausea, vomiting. He denies any significant weight loss or other changes in bowel pattern. PHYSICAL EXAMINATION GENERAL: Pleasant well-developed male. Alert and oriented x3, in no acute distress. VITAL SIGNS: Stable. He is afebrile. HEENT: Exam normocephalic, atraumatic. Sclerae anicteric. Oral mucosa dry. NECK: Neck is supple. CARDIOVASCULAR: Cardiac exam S1-S2, regular rhythm. CHEST: Chest is clear at this time. ABDOMEN: The abdomen is slightly protuberant with minimal distension. Bowel sounds are present. There was no organomegaly. I do not appreciate any masses. He does not have any rebound tenderness. EXTREMITIES: Without clubbing, cyanosis or edema. IMPRESSION 1. Acute bilateral pulmonary edema. 2. Abdominal pain. 3. Constipation. The patient's abdominal discomfort has improved with bowel movement recently. PLAN I would suggest adding Bentyl therapy p.r.n. for abdominal discomfort along with Gas-X as he does complain of increased intestinal gas. I would suggest starting him on MiraLax as well daily and proceed conservatively from a GI standpoint. The CT study does not reveal an acute pathology in the abdomen. I will be glad to follow the patient with you. Continue treatment for his pulmonary emboli as per consultants. MD ISAAC Hoff/ARON /8:03 PM /9:28 PM
[2017-08-16] VITALS (17 sets, daily range): BP systolic 137–179; BP diastolic 72–85; PULSE 69–122; RESP 13–21; TEMP 97.8–98.6; O2SAT 90–97
[2017-08-16] MEDS: HYDROmorphone HCL PF 0.5 MG/0.5 ML SYRINGE IV PUSH PRN ×2 (01:10→05:50)
[2017-08-16] MEDS: ACETAMINOPHEN/HYDROcodone 325 MG/10 MG TAB PO PRN ×4 (01:10→15:12)
[2017-08-16] MEDS: SODIUM CHLORIDE 0.9% FLUSH 10 ML FLUSH IV FLUSH SCH ×3 (01:15→20:26)
[2017-08-16] MEDS: CHLORHEXIDINE GLUCONATE 2 % 1 PACK (2 CLOTHS)(taper/protocol) TOPICAL SCH ×2 (03:55→22:46)
[2017-08-16 04:42] LABS: HEMATOCRIT 39.1 % (39.0-51.0); MEAN CELL VOLUME 92.5 FL (80.0-100.0); MEAN CORPUSCULAR HEMOGLOBIN 31.1 PG (27.0-34.0); MEAN CORPUSCULAR HGB CONC 33.6 % (32.0-36.0); PLATELET COUNT 130 TH/MM3 (150-450); RED BLOOD COUNT 4.22 MIL/MM3 (4.50-5.90); RED CELL DISTRIBUTION WIDTH 13.9 % (11.6-17.2); REVIEW FLAG FINAL; WHITE BLOOD COUNT 11.8 TH/MM3 (4.0-11.0)
[2017-08-16] MEDS: hydrALAZINE HCL 20 MG/ML VIAL IV PUSH PRN (04:53)
[2017-08-16 04:55] LABS: APTT (PATIENT) 57.2 SEC (24.3-30.1)
[2017-08-16 05:02] LABS: BICARBONATE 23.1 MEQ/L (21.0-32.0); POTASSIUM 3.6 MEQ/L (3.5-5.1)
--- NOTE | 2017-08-16 07:41 | HHI.CCPN ---
Subjective Remarks/Hospital Course Patient is an 87-year-old male with history of COPD, hypertension, hyperlipidemia, atrial fibrillation currently on Aggrenox for anticoagulation, presents to emergency room with complaints of shortness of breath and abdominal pain. Patient reports that he woke up this morning feeling short of breath, reports that his abdomen was uncomfortable, reports that he overall was not feeling well. Patient denies any cough, denies any fevers or chills, denies any overt chest pain. Patient reports that he does have history of COPD, with a past smoker but quit over 30 years ago. Denies history of CHF. Patient reports that he does not use oxygen at home at baseline, reports no recent illnesses or sick contacts. Patient reports that his abdomen was uncomfortable diffusely, reports that his abdomen is feeling much better upon presentation to the emergency room. Subjective: 08/15: No acute events overnight. Patient continues on heparin infusion, O2 via 2 L nasal cannula no dyspnea. Patient resting comfortably, patient complained of chronic back pain normally takes hydrocodone every 6 hours when necessary for arthritic pain will add to medication regimen. 08/16: Afebrile. No dyspnea patient continues on O2 at 2 L nasal cannula and heparin infusion . Yesterday , lower extremity ultrasound showed DVT left peroneal vein. Patient continues to complain of chronic back pain, hydrocodone frequency increased to every 4 hours. Objective Vital Signs Date Time Temp Pulse Resp B/P (MAP) Pulse Ox O2 Delivery O2 Flow Rate FiO2 08/16/17 04:00 98.1 84 13 179/81 (113) 97 08/15/17 21:37 Nasal Cannula 2.00 Result Diagram: 08/16/17 0344 08/16/17 0344 Imaging Last Impressions Abdomen/Pelvis CT 08/14/17916 Signed Impressions: Service Date/Time: Monday, August 14, 2017 15:29 - CONCLUSION: 1. See the CTA of the chest reported separately. 2. 3.8 cm indeterminate lesion involving the lower pole the left kidney. This may relate to a complex cyst, however, a solid lesion cannot be excluded. Consider ultrasound of the kidneys to further evaluate. 3. Enlarged prostate. Jovani Jenkins Jr., MD CT Angiography 08/14/17911 Signed Impressions: Service Date/Time: Monday, August 14, 2017 15:26 - CONCLUSION: 1. Significant volume pulmonary emboli bilaterally. Jovani Jenkins Jr., MD Chest X-Ray 08/14/17 0755 Signed Impressions: Service Date/Time: Monday, August 14, 2017 08:13 - CONCLUSION: No acute cardiopulmonary abnormality is identified. Jace Ron MD Objective Remarks GENERAL: Frail elderly male, lying in bed, in no respiratory distress HEENT: Normocephalic. Atraumatic. Pupils equal, round, reactive, conjugate. Mucous membranes are moist. Patient is hard of hearing usually wears hearing aids NECK: Trachea is midline. There is no JVD. CHEST: Normal respiratory rate. Equal chest rise. On 2 L nasal cannula oxygen. SPO2 98% CARDIOVASCULAR: Tachycardic rate, regular rhythm. Sinus rhythm by telemetry. ABDOMEN: Soft, nontender, nondistended. No guarding. MUSCULOSKELETAL: Pulses 2+. No peripheral edema. NEUROLOGICAL: RASS 0. Awake and alert. Follows commands, moves extremities 4. A/P Assessment and Plan Assessment: 87-year-old male with new large clot burden pulmonary emboli and associated shortness of breath. I discussed case with his primary team and we have agreed based on his age and associated bleeding risk, that systemic TPA for submassive pulmonary embolism should be avoided unless he clinically decompensates, and we should pursue therapeutic echo regulation with heparin drip transitioning to oral anticoagulation. He remains very medically high risk for sudden cardiac over the next 30 days and high risk for long-term WHO Class IV Pulmonary Hypertension. Plan: Submassive Pulmonary Embolism - Heparin drip-plan transition to by mouth anticoagulation after evaluation for fall risk - trend troponins until downtrending - 08/15 echo-no regional wall motion abnormalities. Ejection fraction 67%. PA S/P unable to be evaluated secondary to incompetent tricuspid valve - if he clinically decompensates, would consider systemic TPA Acute hypoxic respiratory failure - wean o2 for goal spo2 > 90%, early on nasal cannula 3 L/m - pulmonary toilet Chronic pain syndrome Osteoarthritis Hydrocodone-acetaminophen 10-325 mg every 4 hours when necessary for pain VAS 6- 10 Constipation Colace 100 mg 3 times a day scheduled doses When necessary bowel regimen Dispo: Level 2 Planned transfer to [facility] in a.m. Contact case management regarding disposition regarding discharge for possible rehabilitation facility. Discussed with MANAGING PARTNER at bedside. All questions answered. Physician Florence Ferguson MD Aug 16, 2017 07:41
[2017-08-16] MEDS: OFLOXACIN 0.3% OPTH SOLN 5 ML BTL EACH EYE SCH ×6 (08:54→23:13)
[2017-08-16] MEDS: DOCUSATE SODIUM 100 MG CAP PO SCH ×3 (08:55→18:09)
[2017-08-16] MEDS: PANTOPRAZOLE SOD 20 MG DELAYED RELEASE TAB PO SCH (08:55)
[2017-08-16] MEDS: amLODIPine BESYLATE 5 MG TAB PO SCH (08:55)
[2017-08-16] MEDS: DOCUSATE SODIUM 50 MG/SENNA 8.6 MG TAB PO SCH ×2 (08:55→20:27)
[2017-08-16] MEDS: LISINOPRIL 20 MG TAB PO SCH ×2 (08:55→20:27)
[2017-08-16] MEDS: CITALOPRAM HYDROBROMIDE 20 MG TAB PO SCH (08:55)
[2017-08-16] MEDS: INSULIN ASPART SUPPLEMENTAL SCALE SQ SCH ×4 (08:56→20:38)
[2017-08-16] MEDS: POLYETHYLENE GLYCOL 17 GM PKG PO SCH (08:57)
--- NOTE | 2017-08-16 11:34 | HHI.PR ---
Subjective Remarks 82 YOWM with SOB,Bilat PE On Heparin drip Breathing better at BS Last time he fell was 2 months ago Started Bentyl, feels little better Objective Vital Signs Vital Signs Date Time Temp Pulse Resp B/P (MAP) Pulse Ox O2 Delivery O2 Flow Rate FiO2 08/16/17 08:31 94 Nasal Cannula 2.00 08/16/17 06:00 104 08/16/17 04:00 98.1 84 13 179/81 (113) 97 08/16/17 04:00 84 08/16/17 02:00 90 08/16/17 00:00 82 08/16/17 00:00 97.8 82 13 175/83 (113) 95 08/15/17 22:00 79 08/15/17 21:37 95 Nasal Cannula 2.00 08/15/17 20:00 91 08/15/17 20:00 98.0 91 18 156/66 (96) 98 08/15/17 18:00 94 08/15/17 16:00 97.8 99 15 159/86 (110) 95 08/15/17 16:00 99 08/15/17 14:00 107 08/15/17 12:00 98.2 90 15 172/84 (113) 99 08/15/17 12:00 90 I/O 08/15/17 08/15/17 08/15/17 08/16/17 08/16/17 08/16/17 07:00 15:00 23:00 07:00 15:00 23:00 Intake Total 3147 ml 319 ml Output Total 550 ml 3030 ml 800 ml Balance -550 ml 117 ml -481 ml Intake Oral 200 ml IV Total 3147 ml 119 ml Output Urine Total 550 ml 3030 ml 800 ml # Voids 6 8 6 # Bowel Movements 0 5 0 Result Diagram: 08/16/17 0344 08/16/17343 Objective Remarks GENERAL: MBMN WM, mild sob SKIN: Warm and dry. HEAD: Normocephalic. EYES: No scleral icterus. No injection or drainage. NECK: Supple, trachea midline. No JVD or lymphadenopathy. CARDIOVASCULAR: Regular rate and rhythm without murmurs, gallops, or rubs. RESPIRATORY: Breath sounds equal bilaterally. No accessory muscle use. GASTROINTESTINAL: Abdomen soft, non-tender, nondistended. MUSCULOSKELETAL: No cyanosis, or edema. BACK: Nontender without obvious deformity. No CVA tenderness. A/P Assessment and Plan Bilat PE COPD HTN H/O TIA PLAN: IV Heparin Monitor PTT Will need oral anticoagulation Supplement 02 Dw pt and his at BS Cont Nicho Tsai MD Aug 16, 2017 11:34
[2017-08-16 12:02] LABS: APTT (PATIENT) 53.5 SEC (24.3-30.1)
--- NOTE | 2017-08-16 12:06 | HHI.PR ---
Subjective Remarks Patient alert reports that he did not sleep well last night. No SOB reported Objective Vital Signs Date Time Temp Pulse Resp B/P (MAP) Pulse Ox O2 Delivery O2 Flow Rate FiO2 08/16/17 08:31 94 Nasal Cannula 2.00 08/16/17 06:00 104 08/16/17 04:00 98.1 84 13 179/81 (113) 97 08/16/17 04:00 84 08/16/17 02:00 90 08/16/17 00:00 82 08/16/17 00:00 97.8 82 13 175/83 (113) 95 08/15/17 22:00 79 08/15/17 21:37 95 Nasal Cannula 2.00 08/15/17 20:00 91 08/15/17 20:00 98.0 91 18 156/66 (96) 98 08/15/17 18:00 94 08/15/17 16:00 97.8 99 15 159/86 (110) 95 08/15/17 16:00 99 08/15/17 14:00 107 08/15/17 12:00 98.2 90 15 172/84 (113) 99 08/15/17 12:00 90 I/O 08/15/17 08/15/17 08/15/17 08/16/17 08/16/17 08/16/17 07:00 15:00 23:00 07:00 15:00 23:00 Intake Total 3147 ml 319 ml Output Total 550 ml 3030 ml 800 ml Balance -550 ml 117 ml -481 ml Intake Oral 200 ml IV Total 3147 ml 119 ml Output Urine Total 550 ml 3030 ml 800 ml # Voids 6 8 6 # Bowel Movements 0 5 0 Result Diagram: 08/16/17 0344 08/16/17 0344 Imaging Last 48 hours Impressions Renal Ultrasound 08/15/17 0000 Signed Impressions: Service Date/Time: July 16:29 - CONCLUSION: 2 simple type cysts in the lower pole the left kidney 2.7 x 3.6 and 2.5 x 2.1 cm in size. Prostate enlargement encroach upon the base the urinary bladder otherwise negative with no evidence of obstructive uropathy, hydronephrosis or hydroureter Salvador Aguilar MD Lower Extremity Ultrasound 08/15/17 0000 Signed Impressions: Service Date/Time: July 16:43 - CONCLUSION: Positive for DVT left peroneal vein. Right lower extremity is negative for DVT Salvador Aguilar MD Objective Remarks GENERAL: Alert, uncomfortable SKIN: Warm and dry. HEAD: Normocephalic. EYES: No scleral icterus. No injection or drainage. NECK: Supple, trachea midline. No JVD or lymphadenopathy. CARDIOVASCULAR: Regular rate and rhythm without murmurs, gallops, or rubs. RESPIRATORY: Breath sounds equal bilaterally. No accessory muscle use. GASTROINTESTINAL: Abdomen soft, non-tender, nondistended. MUSCULOSKELETAL: No cyanosis, or edema. BACK: Nontender without obvious deformity. No CVA tenderness. Medications and IVs Current Medications Medications (Trade) Dose Ordered Sig/Marion Route Start Time Stop Time Status Last Admin (NS Flush) 2 ml UNSCH PRN IV FLUSH 08/14/17 15:15 (NS Flush) 2 ml BID IV FLUSH 08/14/17 21:00 08/16/17 08:56 (Tylenol) 650 mg Q4H PRN PO 08/14/17 15:15 08/15/17 03:33 (Zofran Inj) 4 mg Q6H PRN IVP 08/14/17 15:15 08/15/17 02:43 (Lovenox Inj) 40 mg Q24H SQ 08/14/17 16:00 Future Hold 08/14/17 16:00 (Narcan Inj) 0.4 mg UNSCH PRN IV PUSH 08/14/17 15:15 (Laura-Colace) 1 tab BID PO 08/14/17 21:00 08/16/17 08:55 (Milk Of Magnesia Liq) 30 ml Q12H PRN PO 08/14/17 15:15 (Senokot) 17.2 mg Q12H PRN PO 08/14/17 15:15 (Dulcolax Supp) 10 mg DAILY PRN RECTAL 08/14/17 15:15 (Lactulose Liq) 30 ml DAILY PRN PO 08/14/17 15:15 08/15/17 08:13 Sodium Chloride 1,000 ml @ 42 mls/hr [id number] IV 08/14/17 15:15 08/15/17 20:07 (NovoLOG SUPPLEMENTAL SCALE) 1 ACHS SLIDING SCALE SQ 08/14/17 17:00 08/16/17 08:56 (Norvasc) 10 mg DAILY PO 08/15/17 09:00 08/16/17 08:55 (CeleXA) 20 mg DAILY PO 08/15/17 09:00 08/16/17 08:55 (Ocuflox 0.3% Opth Soln) 1 drop Q4HR EACH EYE 08/14/17 16:00 08/16/17 08:54 Patient Own Medication PT OWN MED: (Empagliflozin (Jardian... DAILY PO 08/15/17 09:00 Future Hold (Protonix) 20 mg DAILY PO 08/15/17 09:00 08/16/17 08:55 Heparin Sodium/ Dextrose 250 ml @ 15 mls/hr TITRATE PRN IV 08/14/17 16:30 08/15/17 15:57 Miscellaneous Information Patient in critical care unit? Ass... [id number] .XX 08/14/17 20:30 (Chlorhexidine 2% Cloth) 3 pack DAILY@04 TOPICAL 08/15/17 04:00 08/19/17 04:01 08/16/17 03:55 (Chlorhexidine 2% Cloth) 3 pack UNSCH PRN TOPICAL 08/14/17 20:30 08/19/17 20:27 (Apresoline Inj) 5 mg Q30M PRN IV PUSH 08/15/17 02:15 08/16/17 04:53 (Prinivil) 20 mg DAILY PO 08/15/17 16:30 08/16/17 08:55 (Colace) 100 mg TID PO 08/16/17 09:00 08/16/17 08:55 (Bentyl) 20 mg QID PRN PO 08/15/17 20:00 (Mylicon Chew) 80 mg PCHS PRN CHEW 08/15/17 20:00 (Miralax) 17 gm DAILY PO 08/16/17 09:00 08/16/17 08:57 (Beverly 10-325 Mg) 1 tab Q4H PRN PO 08/16/17 01:00 08/16/17 10:42 (Dilaudid Pf Inj) 0.25 mg Q4H PRN IV PUSH 08/16/17 01:00 10/20/17 05:50 Assessment and Plan Problem List: (1) Pulmonary embolism ICD Codes: I26.99 - Other pulmonary embolism without acute cor pulmonale Status: Acute (2) Hypoxia ICD Codes: R09.02 - Hypoxemia Status: Acute (3) HTN (hypertension) ICD Codes: I10 - Essential (primary) hypertension (4) Depression ICD Codes: F32.9 - Major depressive disorder, single episode, unspecified (5) Diabetes ICD Codes: E11.9 - Type 2 diabetes mellitus without complications Assessment and Plan 08/15/17 Submassive PE: Continue heparin drip. Trending troponins. EDC0 ordered and pending. Per air crew supervisor if clinicall decompensate would consider systemic TPA. O2 sats good on 2 lites. . US ordered of bilateral lower extremity DVT noted in LLE. Hypertension; B/P elevated. On norvasc and PRN hydralazine. Will add lisinopril daily and monitor. Depression; Continue home medications Lesion noted on left kidney: Per recommendations on CT scan Ultrasound ordered. Diabetes: BS AC HS on SS will monitor. Abdominal discomfort: GI consulted. Labs ordered for AM On GI prophylaxis 08/16/17 Submassive PE: On heparin drip will discontinue and convert to eliquis. Troponin trending downward. ECHO no regional wall motion abnormalities. Ejection fraction 67%. Per air crew supervisor if clinicall decompensate would consider systemic TPA. O2 sats good on room air. US ordered of bilateral lower extremity. Hypertension; B/P elevated. On Norvasc and PRN hydralazine. Will increase lisinopril Depression; Continue home medications Lesion noted on left kidney: Per recommendations on CT scan Ultrasound ordered showing cysts Diabetes: BS AC HS on SS will monitor. Abdominal discomfort: GI consulted Bentyl ordered with symptom improvement Agitation: Will discontinue Dilaudid and add Risperdal. Labs ordered for AM On GI prophylaxis Will transfer out of ICU to step down unit I and the APPRAISER ART have both examined this patient and reviewed this and I agree with these findings and plan of care. Stan Rodriguez DO Problem Qualifiers (1) Pulmonary embolism: Flora Ornelas Aug 16, 2017 12:06
--- NOTE | 2017-08-16 14:10 | PD.CARD.PN ---
Subjective Subjective Remarks The patient complains of increased SOB. SpO2 lower compared to yesterday. Remains tachycardic. No CP. Bicarb improving on BMP. Echo does not show dilated RV, but unable to calculate RVSP. Objective Medications Current Medications Medications (Trade) Dose Ordered Sig/Marion Route Start Time Stop Time Status Last Admin (NS Flush) 2 ml UNSCH PRN IV FLUSH 08/14/17 15:15 (NS Flush) 2 ml BID IV FLUSH 08/14/17 21:00 08/16/17 08:56 (Tylenol) 650 mg Q4H PRN PO 08/14/17 15:15 08/15/17 03:33 (Zofran Inj) 4 mg Q6H PRN IVP 08/14/17 15:15 08/15/17 02:43 (Narcan Inj) 0.4 mg UNSCH PRN IV PUSH 08/14/17 15:15 (Laura-Colace) 1 tab BID PO 08/14/17 21:00 08/16/17 08:55 (Milk Of Magnesia Liq) 30 ml Q12H PRN PO 08/14/17 15:15 (Senokot) 17.2 mg Q12H PRN PO 08/14/17 15:15 (Dulcolax Supp) 10 mg DAILY PRN RECTAL 08/14/17 15:15 (Lactulose Liq) 30 ml DAILY PRN PO 08/14/17 15:15 08/15/17 08:13 Sodium Chloride 1,000 ml @ 42 mls/hr [id number] IV 08/14/17 15:15 08/15/17 20:07 (NovoLOG SUPPLEMENTAL SCALE) 1 ACHS SLIDING SCALE SQ 08/14/17 17:00 08/16/17 08:56 (Norvasc) 10 mg DAILY PO 08/15/17 09:00 08/16/17 08:55 (CeleXA) 20 mg DAILY PO 08/15/17 09:00 08/16/17 08:55 (Ocuflox 0.3% Opth Soln) 1 drop Q4HR EACH EYE 08/14/17 16:00 08/16/17 08:54 Patient Own Medication PT OWN MED: (Empagliflozin (Jardian... DAILY PO 08/15/17 09:00 Future Hold (Protonix) 20 mg DAILY PO 08/15/17 09:00 08/16/17 08:55 Heparin Sodium/ Dextrose 250 ml @ 15 mls/hr TITRATE PRN IV 08/14/17 16:30 08/16/17 20:00 08/15/17 15:57 Miscellaneous Information Patient in critical care unit? Ass... Q361D .XX 08/14/17 20:30 (Chlorhexidine 2% Cloth) 3 pack DAILY@04 TOPICAL 08/15/17 04:00 08/19/17 04:01 08/16/17 03:55 (Chlorhexidine 2% Cloth) 3 pack UNSCH PRN TOPICAL 08/14/17 20:30 08/19/17 20:27 (Apresoline Inj) 5 mg Q30M PRN IV PUSH 08/15/17 02:15 08/16/17 04:53 (Colace) 100 mg TID PO 08/16/17 09:00 08/16/17 11:59 (Bentyl) 20 mg QID PRN PO 08/15/17 20:00 (Mylicon Chew) 80 mg PCHS PRN CHEW 08/15/17 20:00 (Miralax) 17 gm DAILY PO 08/16/17 09:00 08/16/17 08:57 ([place] 10-325 Mg) 1 tab Q4H PRN PO 08/16/17 01:00 08/16/17 10:42 (Prinivil) 20 mg BID PO 08/16/17 21:00 (risperDAL) 0.5 mg BID PO 08/16/17 12:00 (Eliquis) 10 mg BID PO 08/16/17 21:00 08/23/17 22:00 (Eliquis) 5 mg BID PO 08/24/17 09:00 Vital Signs / I&O Vital Signs Date Time Temp Pulse Resp B/P (MAP) Pulse Ox O2 Delivery O2 Flow Rate FiO2 08/16/17 11:42 18 08/16/17 08:31 94 Nasal Cannula 2.00 08/16/17 06:00 104 08/16/17 04:00 98.1 84 13 179/81 (113) 97 08/16/17 04:00 84 08/16/17 02:00 90 08/16/17 00:00 82 08/16/17 00:00 97.8 82 13 175/83 (113) 95 08/15/17 22:00 79 08/15/17 21:37 95 Nasal Cannula 2.00 08/15/17 20:00 91 08/15/17 20:00 98.0 91 18 156/66 (96) 98 08/15/17 18:00 94 08/15/17 16:00 97.8 99 15 159/86 (110) 95 08/15/17 16:00 99 I/O 08/15/17 08/15/17 08/15/17 08/16/17 08/16/17 08/16/17 07:00 15:00 23:00 07:00 15:00 23:00 Intake Total 3147 ml 319 ml Output Total 550 ml 3030 ml 800 ml Balance -550 ml 117 ml -481 ml Intake Oral 200 ml IV Total 3147 ml 119 ml Output Urine Total 550 ml 3030 ml 800 ml # Voids 6 8 6 # Bowel Movements 0 5 0 Physical Exam GENERAL: Elderly male in the ICU, mildly distressed SKIN: Warm and dry. HEAD: Normocephalic. EYES: No scleral icterus. No injection or drainage. NECK: Supple, trachea midline. CARDIOVASCULAR: Tachycardia, regular rhythm RESPIRATORY: Breath sounds equal bilaterally. No accessory muscle use. GASTROINTESTINAL: Abdomen soft, non-tender, nondistended. MUSCULOSKELETAL: No cyanosis, mild BLE edema BACK: Nontender without obvious deformity. Laboratory Laboratory Tests Test 08/15/17 20:14 08/16/17 03:44 08/16/17 11:20 Activated Partial Thromboplast Time 58.9 SEC 57.2 SEC 53.5 SEC White Blood Count 11.8 TH/MM3 Red Blood Count 4.22 MIL/MM3 Hemoglobin 13.1 GM/DL Hematocrit 39.1 % Mean Corpuscular Volume 92.5 FL Mean Corpuscular Hemoglobin 31.1 PG Mean Corpuscular Hemoglobin Concent 33.6 % Red Cell Distribution Width 13.9 % Platelet Count 130 TH/MM3 Mean Platelet Volume 8.9 FL Blood Urea Nitrogen 15 MG/DL Creatinine 1.03 MG/DL Random Glucose 144 MG/DL Calcium Level 9.7 MG/DL Sodium Level 143 MEQ/L Potassium Level 3.6 MEQ/L Chloride Level 112 MEQ/L Carbon Dioxide Level 23.1 MEQ/L Anion Gap 8 MEQ/L Estimat Glomerular Filtration Rate 68 ML/MIN Imaging Last 72 hours Impressions Renal Ultrasound 08/15/17 0000 Signed Impressions: Service Date/Time: July 16:29 - CONCLUSION: 2 simple type cysts in the lower pole the left kidney 2.7 x 3.6 and 2.5 x 2.1 cm in size. Prostate enlargement encroach upon the base the urinary bladder otherwise negative with no evidence of obstructive uropathy, hydronephrosis or hydroureter Salvador Aguilar MD Lower Extremity Ultrasound 08/15/17 0000 Signed Impressions: Service Date/Time: July 16:43 - CONCLUSION: Positive for DVT left peroneal vein. Right lower extremity is negative for DVT Salvador Aguilar MD Abdomen/Pelvis CT 08/14/17 0917 Signed Impressions: Service Date/Time: Monday, August 14, 2017 15:29 - CONCLUSION: 1. See the CTA of the chest reported separately. 2. 3.8 cm indeterminate lesion involving the lower pole the left kidney. This may relate to a complex cyst, however, a solid lesion cannot be excluded. Consider ultrasound of the kidneys to further evaluate. 3. Enlarged prostate. Jovani Jenkins Jr., MD CT Angiography 08/14/17 0912 Signed Impressions: Service Date/Time: Monday, August 14, 2017 15:26 - CONCLUSION: 1. Significant volume pulmonary emboli bilaterally. Jovani Jenkins Jr., MD Chest X-Ray 08/14/17 0755 Signed Impressions: Service Date/Time: Monday, August 14, 2017 08:13 - CONCLUSION: No acute cardiopulmonary abnormality is identified. Jace Ron MD Assessment and Plan Assessment and Plan 1. Extensive pulmonary embolism and DVT 2. Paroxysmal atrial fibrillation 3. Hypertension, 4. Diabetes mellitus. 5. Dyslipidemia. 6. COPD. 7. History of TIA. 8. Elevated troponin 9. Acute hypoxic respiratory insufficiency PLAN Continue monitoring in the ICU. Canceled transfer out of ICU. Concern for decompensation. Lucyqupenny started The patient was seen and evaluated by Dr Sebastian, who is covering for Dr Chin. Dr Sebastian completed face to face encounter and physical exam and participated in evaluation and management. Sophie Finn Aug 16, 2017 14:10
[2017-08-16] MEDS: risperiDONE 0.5 MG TAB PO SCH ×2 (15:10→20:27)
--- NOTE | 2017-08-16 15:45 | HHI.GIFU ---
Subjective Remarks anxious today feell like has to have BM gets shaky all over had good bems yesterday and passing gas Objective Vitals I&O Vital Signs Date Time Temp Pulse Resp B/P (MAP) Pulse Ox O2 Delivery O2 Flow Rate FiO2 08/16/17 11:42 18 08/16/17 08:31 94 Nasal Cannula 2.00 08/16/17 06:00 104 08/16/17 04:00 98.1 84 13 179/81 (113) 97 08/16/17 04:00 84 08/16/17 02:00 90 08/16/17 00:00 82 08/16/17 00:00 97.8 82 13 175/83 (113) 95 08/15/17 22:00 79 08/15/17 21:37 95 Nasal Cannula 2.00 08/15/17 20:00 91 08/15/17 20:00 98.0 91 18 156/66 (96) 98 08/15/17 18:00 94 08/15/17 16:00 97.8 99 15 159/86 (110) 95 08/15/17 16:00 99 I/O 08/15/17 08/15/17 08/15/17 08/16/17 08/16/17 08/16/17 07:00 15:00 23:00 07:00 15:00 23:00 Intake Total 3147 ml 319 ml Output Total 550 ml 3030 ml 800 ml Balance -550 ml 117 ml -481 ml Intake Oral 200 ml IV Total 3147 ml 119 ml Output Urine Total 550 ml 3030 ml 800 ml # Voids 6 8 6 # Bowel Movements 0 5 0 Laboratory Laboratory Tests Test 08/15/17 20:14 08/16/17 03:44 08/16/17 11:20 Activated Partial Thromboplast Time 58.9 57.2 53.5 White Blood Count 11.8 Red Blood Count 4.22 Hemoglobin 13.1 Hematocrit 39.1 Mean Corpuscular Volume 92.5 Mean Corpuscular Hemoglobin 31.1 Mean Corpuscular Hemoglobin Concent 33.6 Red Cell Distribution Width 13.9 Platelet Count 130 Mean Platelet Volume 8.9 Blood Urea Nitrogen 15 Creatinine 1.03 Random Glucose 144 Calcium Level 9.7 Sodium Level 143 Potassium Level 3.6 Chloride Level 112 Carbon Dioxide Level 23.1 Anion Gap 8 Estimat Glomerular Filtration Rate 68 Imaging Laboratory Tests Test 08/14/17 08:00 08/14/17 20:30 08/15/17 01:11 08/16/17 03:44 Prothrombin Time 11.4 SEC Prothromb Time International Ratio 1.0 RATIO Blood Urea Nitrogen 19 MG/DL 15 MG/DL 15 MG/DL Creatinine 1.39 MG/DL 0.96 MG/DL 1.03 MG/DL Random Glucose 290 MG/DL 130 MG/DL 144 MG/DL Total Protein 6.3 GM/DL 6.0 GM/DL Albumin 3.3 GM/DL 3.1 GM/DL Calcium Level 9.7 MG/DL 9.4 MG/DL 9.7 MG/DL Magnesium Level 1.8 MG/DL Alkaline Phosphatase 94 U/L 88 U/L Aspartate Amino Transf (AST/SGOT) 41 U/L 19 U/L Alanine Aminotransferase (ALT/SGPT) 40 U/L 30 U/L Total Bilirubin 0.6 MG/DL 0.6 MG/DL Sodium Level 140 MEQ/L 144 MEQ/L 143 MEQ/L Potassium Level 3.4 MEQ/L 3.5 MEQ/L 3.6 MEQ/L Chloride Level 108 MEQ/L 112 MEQ/L 112 MEQ/L Carbon Dioxide Level 19.5 MEQ/L 21.9 MEQ/L 23.1 MEQ/L Total Creatine Kinase 45 U/L B-Type Natriuretic Peptide 191 PG/ML Lipase 115 U/L Nasal Screen MRSA (PCR) MRSA NOT DETECTED Neutrophils (%) (Auto) 71.4 % Lymphocytes (%) (Auto) 15.8 % Monocytes (%) (Auto) 11.7 % Eosinophils (%) (Auto) 0.6 % Basophils (%) (Auto) 0.5 % Neutrophils # (Auto) 7.2 TH/MM3 Lymphocytes # (Auto) 1.6 TH/MM3 Monocytes # (Auto) 1.2 TH/MM3 Eosinophils # (Auto) 0.1 TH/MM3 Basophils # (Auto) 0.1 TH/MM3 CBC Comment DIFF FINAL Differential Comment Troponin I 0.87 NG/ML White Blood Count 11.8 TH/MM3 Red Blood Count 4.22 MIL/MM3 Hemoglobin 13.1 GM/DL Hematocrit 39.1 % Mean Corpuscular Volume 92.5 FL Mean Corpuscular Hemoglobin 31.1 PG Mean Corpuscular Hemoglobin Concent 33.6 % Red Cell Distribution Width 13.9 % Platelet Count 130 TH/MM3 Mean Platelet Volume 8.9 FL Anion Gap 8 MEQ/L Estimat Glomerular Filtration Rate 68 ML/MIN Test 08/16/17 11:20 Activated Partial Thromboplast Time 53.5 SEC Physical Exam Anxious NAD CHEST: Chest is clear to . CARDIAC: Regular rate and rhythm with no murmur gallop or rubs. ABDOMEN: obese soft no rebound BS present nontender EXTREMITIES: No clubbing, cyanosis, or edema. SKIN: Normal; no rash; no jaundice. Assessment and Plan Assessment: (1) Pulmonary embolism ICD Codes: I26.99 - Other pulmonary embolism without acute cor pulmonale Status: Acute Plan Continue present therapy.... cont w miralax daily, bentyl prn, MOM as needed ? may require anti anxiety rx as well per Medical service. Problem Qualifiers (1) Pulmonary embolism: Bill Wallace MD Aug 16, 2017 15:45
[2017-08-16] MEDS: MAGNESIUM HYDROXIDE SUSP 30 ML CUP PO PRN (15:55)
[2017-08-16] MEDS: ALPRAZolam 0.5 MG TAB PO PRN (20:26)
[2017-08-16] MEDS: APIXABAN 5 MG TABLET PO SCH (20:26)
[2017-08-16] MEDS: SODIUM CHLOR 0.9% 1000 ML INJ 1,000 ML IV SCH (20:26)
[2017-08-16] MEDS: MELATONIN 5 MG TAB PO SCH (20:27)
--- NOTE | 2017-08-16 21:26 | RADRPT ---
EXAM DATE/TIME: 08/16/2017 21:06 [facility] COMPARISON: CT ABDOMEN & PELVIS W CONTRAST, August 14, 2017, 15:29. US KIDNEY/RENAL/BLADDER, August 15, 2017, 16:29. INDICATIONS : Abdominal pain. MEDICAL HISTORY : Hypertension. Chronic obstructive pulmonary disease. diabetic, carcinoma prostate. SURGICAL HISTORY : Appendectomy. ENCOUNTER: Subsequent ACUITY: 2 days PAIN SCORE: 3/10 LOCATION: across abdomen. FINDINGS: Supine and upright views of the abdomen were performed. The abdominal bowel gas pattern is nonspecif ic with air in the colon nondilated air in loops of small bowel not disproportionate.. No air fluid levels are seen. No abnormal masses, calcifications, or organomegaly is seen. The visualized lower lungs are clear. No evidence of free intraperitoneal gas. The osseous structures reveal degenerativ e changes of the thoracolumbar spine in.. CONCLUSION: Nonspecific benign abdomen Salvador Aguilar MD on August 16, 2017 at 21:23 Board Certified Radiologist. This report was verified electronically.
[2017-08-17] VITALS (11 sets, daily range): BP systolic 150–168; BP diastolic 67–83; PULSE 77–109; RESP 10–18; TEMP 98.3–99.3; O2SAT 92–98
[2017-08-17] MEDS: OFLOXACIN 0.3% OPTH SOLN 5 ML BTL EACH EYE SCH ×5 (04:51→20:52)
[2017-08-17] MEDS: INSULIN ASPART SUPPLEMENTAL SCALE SQ SCH ×4 (08:00→20:51)
[2017-08-17] MEDS: amLODIPine BESYLATE 5 MG TAB PO SCH (09:09)
[2017-08-17] MEDS: DOCUSATE SODIUM 50 MG/SENNA 8.6 MG TAB PO SCH ×2 (09:10→20:51)
[2017-08-17] MEDS: SODIUM CHLORIDE 0.9% FLUSH 10 ML FLUSH IV FLUSH SCH ×2 (09:10→20:51)
[2017-08-17] MEDS: DOCUSATE SODIUM 100 MG CAP PO SCH ×3 (09:10→17:48)
[2017-08-17] MEDS: APIXABAN 5 MG TABLET PO SCH ×2 (09:10→20:51)
[2017-08-17] MEDS: LISINOPRIL 20 MG TAB PO SCH ×2 (09:10→20:50)
[2017-08-17] MEDS: risperiDONE 0.5 MG TAB PO SCH ×2 (09:10→20:51)
[2017-08-17] MEDS: CITALOPRAM HYDROBROMIDE 20 MG TAB PO SCH (09:10)
[2017-08-17] MEDS: POLYETHYLENE GLYCOL 17 GM PKG PO SCH (09:11)
[2017-08-17] MEDS: PANTOPRAZOLE SOD 20 MG DELAYED RELEASE TAB PO SCH (09:12)
--- NOTE | 2017-08-17 09:44 | HHI.PR ---
Subjective Remarks feeling better still confused in evenings will increase risperdal Objective Vital Signs Date Time Temp Pulse Resp B/P (MAP) Pulse Ox O2 Delivery O2 Flow Rate FiO2 08/17/17 06:00 77 08/17/17 04:00 98.6 80 10 155/71 (99) 95 08/17/17 04:00 80 08/17/17 02:00 81 08/17/17 00:00 98 08/17/17 00:00 98.4 83 12 164/72 (102) 98 08/16/17 22:00 93 08/16/17 20:00 98.6 96 21 137/72 (93) 94 08/16/17 20:00 96 08/16/17 18:00 99 08/16/17 17:00 103 08/16/17 16:12 16 08/16/17 16:00 97.9 106 21 168/78 (108) 90 08/16/17 16:00 106 08/16/17 15:00 122 08/16/17 14:00 92 08/16/17 12:00 69 08/16/17 12:00 98.0 69 21 146/85 (105) 97 08/16/17 11:00 72 08/16/17 10:00 85 I/O 08/16/17 08/16/17 08/16/17 08/17/17 08/17/17 08/17/17 07:00 15:00 23:00 07:00 15:00 23:00 Intake Total 319 ml 1061 ml 200 ml Output Total 800 ml 1300 ml 400 ml Balance -481 ml -239 ml -200 ml Intake Oral 200 ml 400 ml 200 ml IV Total 119 ml 661 ml Output Urine Total 800 ml 1300 ml 400 ml # Voids 6 3 # Bowel Movements 0 0 0 Result Diagram: 08/16/17 0344 08/16/17 0344 Imaging Last 48 hours Impressions Abdomen X-Ray 08/16/17 0000 Signed Impressions: Service Date/Time: Wednesday, August 16, 2017 21:06 - CONCLUSION: Nonspecific benign abdomen Salvador Aguilar MD Objective Remarks GENERAL: Well-nourished, well-developed patient. SKIN: Warm and dry. HEAD: Normocephalic. EYES: No scleral icterus. No injection or drainage. NECK: Supple, trachea midline. No JVD or lymphadenopathy. CARDIOVASCULAR: Regular rate and rhythm without murmurs, gallops, or rubs. RESPIRATORY: Breath sounds equal bilaterally. No accessory muscle use. GASTROINTESTINAL: Abdomen soft, non-tender, nondistended.obese EXTREMITIES: No cyanosis, or edema. NEUROLOGICAL: Awake, Non-focal.mild confusion Medications and IVs Inpatient Medications Acetaminophen (Tylenol) 650 mg Q4H PRN PO TEMP > 100.4 Last administered on 03:33; Start 08/14/17 at 15:15 Acetaminophen/ Hydrocodone Bitart ([place] 10-325 Mg) 1 tab Q4H PRN PO pain 1-6 Last administered on 08/16/17 15:12; Start 08/16/17 at 01:00 Alprazolam (Xanax) 0.5 mg Q8H PRN PO MILD ANXIETY Last administered on 20:26; Start 08/16/17 at 17:45 Amlodipine Besylate (Norvasc) 10 mg DAILY PO Last administered on 08/17/17 09 :09; Start 08/15/17 at 09:00 Apixaban (Eliquis) 5 mg BID PO ; Start 08/24/17 at 09:00 Aspirin (Aspirin Chew) 162 mg ONCE ONCE PO Last administered on 08/14/17 08: 09; Start 08/14/17 at 08:00; Stop 08/14/17 at 14:38; Status DC Aspirin (Aspirin) 325 mg ONCE ONCE PO Last administered on 08/14/17 12:00; Start 08/14/17 at 12:00; Stop 08/14/17 at 12:01; Status DC Bisacodyl (Dulcolax Supp) 10 mg DAILY PRN RECTAL SEVERE CONSITIPATION; Start 08/14/17 at 15:15 Chlorhexidine Gluconate (Chlorhexidine 2% Cloth) 3 pack UNSCH PRN TOPICAL HYGIENIC CARE; Start 08/14/17 at 20:30; Stop 08/19/17 at 20:27 Citalopram Hydrobromide (CeleXA) 20 mg DAILY PO Last administered on 09:10; Start 08/15/17 at 09:00 Dicyclomine HCl (Bentyl) 20 mg QID PRN PO abdominal pain Last administered on 08/16/17 15:55; Start 08/15/17 at 20:00 Docusate Sodium (Colace) 100 mg TID PO Last administered on 08/17/17 09:10; Start 08/16/17 at 09:00 Enoxaparin Sodium (Lovenox Inj) 40 mg Q24H SQ Last administered on 08/14/17 16:00; Start 08/14/17 at 16:00; Stop 08/16/17 at 11:59; Status DC Famotidine (Pepcid Inj) 20 mg DAILY@2100 IV PUSH ; Start 08/15/17 at 21:00; Stop 08/15/17 at 21:00; Status DC Famotidine (Pepcid) 20 mg BID PO ; Start 08/14/17 at 21:00; Stop 08/14/17 at 21:00; Status DC Heparin Sodium (Porcine) (Heparin Inj) 6,480 units ONCE ONCE IV PUSH Last administered on 08/14/17 18:29; Start 08/14/17 at 16:30; Stop 08/14/17 at 16 :31; Status DC Heparin Sodium/ Dextrose 250 ml @ 15 mls/hr TITRATE PRN IV Coagulation management Last administered on 08/15/17 15:57; Start 08/14/17 at 16:30; Stop 08/16/17 at 20:00; Status DC Hydralazine HCl (Apresoline Inj) 5 mg Q30M PRN IV PUSH sbp > 180. Last administered on 08/16/17 04:53; Start 08/15/17 at 02:15 Hydromorphone HCl (Dilaudid Pf Inj) 0.25 mg Q4H PRN IV PUSH pain 7-10 or not taking po Last administered on 08/16/17 05:50; Start 08/16/17 at 01:00; Stop 08/16/17 at 11:59; Status DC Insulin Aspart (NovoLOG SUPPLEMENTAL SCALE) 1 ACHS SLIDING SCALE SQ Last administered on 08/16/17 20:38; Start 08/14/17 at 17:00 Lactulose (Lactulose Liq) 30 ml DAILY PRN PO SEVERE CONSITIPATION Last administered on 08/15/17 08:13; Start 08/14/17 at 15:15 Lisinopril (Prinivil) 20 mg BID PO Last administered on 08/17/17 09:10; Start 08/16/17 at 21:00 Lorazepam (Ativan Inj) 1 mg ONCE ONCE IV PUSH Last administered on 08/14/17 14:21; Start 08/14/17 at 14:15; Stop 08/14/17 at 14:16; Status DC Magnesium Hydroxide (Milk Of Magnesia Liq) 30 ml Q12H PRN PO Mild constipation Last administered on 08/16/17 15:55; Start 08/14/17 at 15:15 Melatonin (Melatonin) 10 mg HS PO Last administered on 08/16/17 20:27; Start 08/16/17 at 21:00 Miscellaneous Information Patient in critical care unit? Ass... Q361D .XX ; Start 08/14/17 at 20:30 Morphine Sulfate (Morphine Inj) 4 mg ONCE ONCE IV PUSH Last administered on 09:08; Start 08/14/17 at 09:15; Stop 08/14/17 at 09:16; Status DC Naloxone HCl (Narcan Inj) 0.4 mg UNSCH PRN IV PUSH SEE LABEL COMMENTS; Start 08/14/17 at 15:15 Ofloxacin (Ocuflox 0.3% Opth Soln) 1 drop Q4HR EACH EYE Last administered on 09:10; Start 08/14/17 at 16:00 Ondansetron HCl (Zofran Inj) 4 mg Q6H PRN IVP NAUSEA OR VOMITING Last administered on 08/15/17 02:43; Start 08/14/17 at 15:15 Pantoprazole Sodium (Protonix) 20 mg DAILY PO Last administered on 08/17/17 09:12; Start 08/15/17 at 09:00 Patient Own Medication PT OWN MED: (Empagliflozin (Jardian... DAILY PO ; Start 08/15/17 at 09:00; Status Future Hold Polyethylene Glycol (Miralax) 17 gm DAILY PO Last administered on 08/17/17 09 :11; Start 08/16/17 at 09:00 Potassium Chloride 100 ml @ 50 mls/hr Q2H IV Last administered on 08/14/17 14:21; Start 08/14/17 at 09:30; Stop 08/14/17 at 13:29; Status DC Risperidone (risperDAL) 0.5 mg BID PO Last administered on 08/17/17 09:10; Start 08/16/17 at 12:00 Senna/Docusate Sodium (Laura-Colace) 1 tab BID PO Last administered on 09:10; Start 08/14/17 at 21:00 Sennosides (Senokot) 17.2 mg Q12H PRN PO Moderate constipation; Start at 15:15 Simethicone (Mylicon Chew) 80 mg PCHS PRN CHEW GAS RETENTION; Start 08/15/17 at 20:00 Sodium Chloride 1,000 ml @ 42 mls/hr [id number] IV Last administered on 20:26; Start 08/14/17 at 15:15 Sodium Chloride (NS Flush) 2 ml BID IV FLUSH Last administered on 08/17/17 09 :10; Start 08/14/17 at 21:00 Assessment and Plan Assessment and Plan pulmonary embolism x2 DVT Discussed Condition With patient and nursing Discharge Planning will move to stepdown unit Stan Rodriguez DO Aug 17, 2017 09:44
[2017-08-17 10:55] LABS: AUTOMATED NEUTROPHIL # 6.3 TH/MM3 (1.8-7.7); BASOPHIL % 0.4 % (0.0-2.0); EOSINOPHIL # 0.2 TH/MM3 (0-0.4); EOSINOPHIL % 2.1 % (0.0-4.0); HEMATOCRIT 38.2 % (39.0-51.0); HEMO FLAGS DIFF FINAL; LYMPH % 12.8 % (9.0-44.0); LYMPHOCYTE # 1.1 TH/MM3 (1.0-4.8); MEAN CELL VOLUME 92.3 FL (80.0-100.0); MEAN CORPUSCULAR HEMOGLOBIN 31.1 PG (27.0-34.0); MEAN CORPUSCULAR HGB CONC 33.7 % (32.0-36.0); MONO % 10.4 % (0.0-8.0); NEUT % 74.3 % (16.0-70.0); PLATELET COUNT 125 TH/MM3 (150-450); RED BLOOD COUNT 4.14 MIL/MM3 (4.50-5.90); WHITE BLOOD COUNT 8.5 TH/MM3 (4.0-11.0)
[2017-08-17 11:09] LABS: BICARBONATE 18.7 MEQ/L (21.0-32.0); MAGNESIUM 1.9 MG/DL (1.5-2.5); POTASSIUM 3.4 MEQ/L (3.5-5.1)
--- NOTE | 2017-08-17 13:10 | HHI.GIFU ---
Subjective Remarks Feeling better and sleeping better since transfer from unit....also had cath for urinary retention abd films benign Objective Vitals I&O Vital Signs Date Time Temp Pulse Resp B/P (MAP) Pulse Ox O2 Delivery O2 Flow Rate FiO2 08/17/17 10:00 105 08/17/17 08:00 83 08/17/17 08:00 98.7 82 12 168/74 (105) 95 08/17/17 07:18 98 Nasal Cannula 2.00 08/17/17 06:00 77 08/17/17 04:00 98.6 80 10 155/71 (99) 95 08/17/17 04:00 80 08/17/17 02:00 81 08/17/17 00:00 98 08/17/17 00:00 98.4 83 12 164/72 (102) 98 08/16/17 22:00 93 08/16/17 20:00 98.6 96 21 137/72 (93) 94 08/16/17 20:00 96 08/16/17 18:00 99 08/16/17 17:00 103 08/16/17 16:12 16 08/16/17 16:00 97.9 106 21 168/78 (108) 90 08/16/17 16:00 106 08/16/17 15:00 122 08/16/17 14:00 92 I/O 08/16/17 08/16/17 08/16/17 08/17/17 08/17/17 08/17/17 07:00 15:00 23:00 07:00 15:00 23:00 Intake Total 319 ml 1061 ml 200 ml Output Total 800 ml 1300 ml 400 ml Balance -481 ml -239 ml -200 ml Intake Oral 200 ml 400 ml 200 ml IV Total 119 ml 661 ml Output Urine Total 800 ml 1300 ml 400 ml # Voids 6 3 # Bowel Movements 0 0 0 Laboratory Laboratory Tests Test 08/17/17 10:01 White Blood Count 8.5 Red Blood Count 4.14 Hemoglobin 12.9 Hematocrit 38.2 Mean Corpuscular Volume 92.3 Mean Corpuscular Hemoglobin 31.1 Mean Corpuscular Hemoglobin Concent 33.7 Red Cell Distribution Width 14.0 Platelet Count 125 Mean Platelet Volume 8.9 Neutrophils (%) (Auto) 74.3 Lymphocytes (%) (Auto) 12.8 Monocytes (%) (Auto) 10.4 Eosinophils (%) (Auto) 2.1 Basophils (%) (Auto) 0.4 Neutrophils # (Auto) 6.3 Lymphocytes # (Auto) 1.1 Monocytes # (Auto) 0.9 Eosinophils # (Auto) 0.2 Basophils # (Auto) 0.0 CBC Comment DIFF FINAL Differential Comment Blood Urea Nitrogen 16 Creatinine 0.87 Random Glucose 162 Calcium Level 9.8 Phosphorus Level 1.6 Magnesium Level 1.9 Sodium Level 143 Potassium Level 3.4 Chloride Level 112 Carbon Dioxide Level 18.7 Anion Gap 12 Estimat Glomerular Filtration Rate 83 Imaging Last Impressions Abdomen X-Ray 08/16/17 0000 Signed Impressions: Service Date/Time: Wednesday, August 16, 2017 21:06 - CONCLUSION: Nonspecific benign abdomen Salvador Aguilar MD Renal Ultrasound 08/15/17 0000 Signed Impressions: Service Date/Time: July 16:29 - CONCLUSION: 2 simple type cysts in the lower pole the left kidney 2.7 x 3.6 and 2.5 x 2.1 cm in size. Prostate enlargement encroach upon the base the urinary bladder otherwise negative with no evidence of obstructive uropathy, hydronephrosis or hydroureter Salvador Aguilar MD Lower Extremity Ultrasound 08/15/17 Signed Impressions: Service Date/Time: July 16:43 - CONCLUSION: Positive for DVT left peroneal vein. Right lower extremity is negative for DVT Salvador Aguilar MD Abdomen/Pelvis CT 08/14/17 0917 Signed Impressions: Service Date/Time: Monday, August 14, 2017 15:29 - CONCLUSION: 1. See the CTA of the chest reported separately. 2. 3.8 cm indeterminate lesion involving the lower pole the left kidney. This may relate to a complex cyst, however, a solid lesion cannot be excluded. Consider ultrasound of the kidneys to further evaluate. 3. Enlarged prostate. Jovani Jeknins Jr., MD CT Angiography 08/14/17 0912 Signed Impressions: Service Date/Time: Monday, August 14, 2017 15:26 - CONCLUSION: 1. Significant volume pulmonary emboli bilaterally. Jovani Jenkins Jr., MD Chest X-Ray 08/14/17 0755 Signed Impressions: Service Date/Time: Monday, August 14, 2017 08:13 - CONCLUSION: No acute cardiopulmonary abnormality is identified. Jace Ron MD Physical Exam resting comfortably Nad CHEST: Chest is clear to . CARDIAC: Regular rate and rhythm with no murmur gallop or rubs. ABDOMEN: obese soft no rebound BS present nontender EXTREMITIES: No clubbing, cyanosis, or edema. Assessment and Plan Assessment: (1) Pulmonary embolism ICD Codes: I26.99 - Other pulmonary embolism without acute cor pulmonale Status: Acute Plan Continue present therapy.... appears stable GI discussed w Problem Qualifiers (1) Pulmonary embolism: Bill Wallace MD Aug 17, 2017 13:10
[2017-08-17] MEDS: ACETAMINOPHEN/HYDROcodone 325 MG/10 MG TAB PO PRN ×2 (15:24→22:07)
[2017-08-17] MEDS: MELATONIN 5 MG TAB PO SCH (20:50)
[2017-08-17] MEDS: SODIUM CHLOR 0.9% 1000 ML INJ 1,000 ML IV SCH (22:03)
[2017-08-17] MEDS: ALPRAZolam 0.5 MG TAB PO PRN (23:28)
[2017-08-18] VITALS (8 sets, daily range): BP systolic 141–169; BP diastolic 64–83; PULSE 90–105; RESP 18–21; TEMP 97.9–98.7; O2SAT 92–97
[2017-08-18] MEDS: TAMSULOSIN HCL 0.4 MG CAP PO SCH ×3 (00:07→17:19)
[2017-08-18] MEDS: CHLORHEXIDINE GLUCONATE 2 % 1 PACK (2 CLOTHS)(taper/protocol) TOPICAL SCH (04:00)
[2017-08-18] MEDS: OFLOXACIN 0.3% OPTH SOLN 5 ML BTL EACH EYE SCH ×6 (05:18→21:04)
[2017-08-18] MEDS: ACETAMINOPHEN/HYDROcodone 325 MG/10 MG TAB PO PRN (06:34)
[2017-08-18 09:06] LABS: HEMATOCRIT 35.3 % (39.0-51.0); MEAN CELL VOLUME 91.6 FL (80.0-100.0); MEAN CORPUSCULAR HEMOGLOBIN 30.3 PG (27.0-34.0); MEAN CORPUSCULAR HGB CONC 33.1 % (32.0-36.0); PLATELET COUNT 123 TH/MM3 (150-450); RED BLOOD COUNT 3.86 MIL/MM3 (4.50-5.90); RED CELL DISTRIBUTION WIDTH 13.9 % (11.6-17.2); REVIEW FLAG FINAL; WHITE BLOOD COUNT 6.8 TH/MM3 (4.0-11.0)
[2017-08-18 09:29] LABS: BICARBONATE 21.1 MEQ/L (21.0-32.0); POTASSIUM 3.2 MEQ/L (3.5-5.1)
--- NOTE | 2017-08-18 09:58 | HHI.PR ---
Subjective Remarks feeling better slept better will decrease pain meds as these may add to confusion Objective Vital Signs Date Time Temp Pulse Resp B/P (MAP) Pulse Ox O2 Delivery O2 Flow Rate FiO2 08/18/17 08:00 98.6 90 18 144/66 (92) 96 08/18/17 04:00 98.3 94 18 169/79 (109) 94 08/18/17 03:53 Nasal Cannula 2.00 08/18/17 00:00 98.3 99 21 161/78 (105) 94 08/18/17 00:00 Nasal Cannula 2.00 08/17/17 22:37 Nasal Cannula 2.00 08/17/17 20:00 98.3 94 18 158/83 (108) 94 08/17/17 20:00 Nasal Cannula 2.00 08/17/17 16:24 20 08/17/17 16:00 99.3 109 18 151/69 (96) 92 08/17/17 15:17 94 Nasal Cannula 2.00 08/17/17 13:00 99.1 101 18 150/67 (94) 94 08/17/17 10:00 105 I/O 08/17/17 08/17/17 08/17/17 08/18/17 08/18/17 08/18/17 07:00 15:00 23:00 07:00 15:00 23:00 Intake Total 200 ml 240 ml 240 ml Output Total 400 ml 125 ml 50 ml 1600 ml Balance -200 ml 115 ml -50 ml -1360 ml Intake Oral 200 ml 240 ml 240 ml Output Urine Total 400 ml 125 ml 50 ml 1600 ml Bladder Scan Volume Amount 876 ml 24 ml 388 ml # Voids 1 # Bowel Movements 0 0 0 0 Result Diagram: 08/18/1784108/18/17841 Objective Remarks GENERAL: Well-nourished, well-developed patient. SKIN: Warm and dry. HEAD: Normocephalic. EYES: No scleral icterus. No injection or drainage. NECK: Supple, trachea midline. No JVD or lymphadenopathy. CARDIOVASCULAR: Regular rate and rhythm without murmurs, gallops, or rubs. RESPIRATORY: Breath sounds equal bilaterally. No accessory muscle use. GASTROINTESTINAL: Abdomen soft, non-tender, nondistended.obese EXTREMITIES: No cyanosis, or edema. NEUROLOGICAL: Awake, Non-focal.mild confusion Medications and IVs Inpatient Medications Acetaminophen (Tylenol) 650 mg Q4H PRN PO TEMP > 100.4 Last administered on 03:33; Start 08/14/17 at 15:15 Acetaminophen/ Hydrocodone Bitart ([place] 10-325 Mg) 1 tab Q4H PRN PO pain 1-6 Last administered on 08/18/17 06:34; Start 08/16/17 at 01:00 Alprazolam (Xanax) 0.5 mg Q8H PRN PO MILD ANXIETY Last administered on 23:28; Start 08/16/17 at 17:45 Amlodipine Besylate (Norvasc) 10 mg DAILY PO Last administered on 08/17/17 09 :09; Start 08/15/17 at 09:00 Apixaban (Eliquis) 5 mg BID PO ; Start 08/24/17 at 09:00 Aspirin (Aspirin Chew) 162 mg ONCE ONCE PO Last administered on 08/14/17 08: 09; Start 08/14/17 at 08:00; Stop 08/14/17 at 14:38; Status DC Aspirin (Aspirin) 325 mg ONCE ONCE PO Last administered on 08/14/17 12:00; Start 08/14/17 at 12:00; Stop 08/14/17 at 12:01; Status DC Bisacodyl (Dulcolax Supp) 10 mg DAILY PRN RECTAL SEVERE CONSITIPATION; Start 08/14/17 at 15:15 Chlorhexidine Gluconate (Chlorhexidine 2% Cloth) 3 pack UNSCH PRN TOPICAL HYGIENIC CARE; Start 08/14/17 at 20:30; Stop 08/19/17 at 20:27 Citalopram Hydrobromide (CeleXA) 20 mg DAILY PO Last administered on 09:10; Start 08/15/17 at 09:00 Dicyclomine HCl (Bentyl) 20 mg QID PRN PO abdominal pain Last administered on 08/16/17 15:55; Start 08/15/17 at 20:00 Docusate Sodium (Colace) 100 mg TID PO Last administered on 08/17/17 17:48; Start 08/16/17 at 09:00 Enoxaparin Sodium (Lovenox Inj) 40 mg Q24H SQ Last administered on 08/14/17 16:00; Start 08/14/17 at 16:00; Stop 08/16/17 at 11:59; Status DC Famotidine (Pepcid Inj) 20 mg DAILY@2100 IV PUSH ; Start 08/15/17 at 21:00; Stop 08/15/17 at 21:00; Status DC Famotidine (Pepcid) 20 mg BID PO ; Start 08/14/17 at 21:00; Stop 08/14/17 at 21:00; Status DC Heparin Sodium (Porcine) (Heparin Inj) 6,480 units ONCE ONCE IV PUSH Last administered on 08/14/17 18:29; Start 08/14/17 at 16:30; Stop 08/14/17 at 16 :31; Status DC Heparin Sodium/ Dextrose 250 ml @ 15 mls/hr TITRATE PRN IV Coagulation management Last administered on 08/15/17 15:57; Start 08/14/17 at 16:30; Stop 08/16/17 at 20:00; Status DC Hydralazine HCl (Apresoline Inj) 5 mg Q30M PRN IV PUSH sbp > 180. Last administered on 08/16/17 04:53; Start 08/15/17 at 02:15 Hydromorphone HCl (Dilaudid Pf Inj) 0.25 mg Q4H PRN IV PUSH pain 7-10 or not taking po Last administered on 08/16/17 05:50; Start 08/16/17 at 01:00; Stop 08/16/17 at 11:59; Status DC Insulin Aspart (NovoLOG SUPPLEMENTAL SCALE) 1 ACHS SLIDING SCALE SQ Last administered on 08/17/17 17:00; Start 08/14/17 at 17:00 Lactulose (Lactulose Liq) 30 ml DAILY PRN PO SEVERE CONSITIPATION Last administered on 08/15/17 08:13; Start 08/14/17 at 15:15 Lisinopril (Prinivil) 20 mg BID PO Last administered on 08/17/17 20:50; Start 08/16/17 at 21:00 Lorazepam (Ativan Inj) 1 mg ONCE ONCE IV PUSH Last administered on 08/14/17 14:21; Start 08/14/17 at 14:15; Stop 08/14/17 at 14:16; Status DC Magnesium Hydroxide (Milk Of Magnesia Liq) 30 ml Q12H PRN PO Mild constipation Last administered on 08/16/17 15:55; Start 08/14/17 at 15:15 Melatonin (Melatonin) 10 mg HS PO Last administered on 08/17/17 20:50; Start 08/16/17 at 21:00 Miscellaneous Information Patient in critical care unit? Ass... Q361D .XX ; Start 08/14/17 at 20:30 Morphine Sulfate (Morphine Inj) 4 mg ONCE ONCE IV PUSH Last administered on 09:08; Start 08/14/17 at 09:15; Stop 08/14/17 at 09:16; Status DC Naloxone HCl (Narcan Inj) 0.4 mg UNSCH PRN IV PUSH SEE LABEL COMMENTS; Start 08/14/17 at 15:15 Ofloxacin (Ocuflox 0.3% Opth Soln) 1 drop Q4HR EACH EYE Last administered on 05:19; Start 08/14/17 at 16:00 Ondansetron HCl (Zofran Inj) 4 mg Q6H PRN IVP NAUSEA OR VOMITING Last administered on 08/15/17 02:43; Start 08/14/17 at 15:15 Pantoprazole Sodium (Protonix) 20 mg DAILY PO Last administered on 08/17/17 09:12; Start 08/15/17 at 09:00 Patient Own Medication PT OWN MED: (Empagliflozin (Jardian... DAILY PO ; Start 08/15/17 at 09:00; Status Future Hold Polyethylene Glycol (Miralax) 17 gm DAILY PO Last administered on 08/17/17 09 :11; Start 08/16/17 at 09:00 Potassium Chloride 100 ml @ 50 mls/hr Q2H IV Last administered on 08/14/17 14:21; Start 08/14/17 at 09:30; Stop 08/14/17 at 13:29; Status DC Risperidone (risperDAL) 0.5 mg BID PO Last administered on 08/17/17 20:51; Start 08/16/17 at 12:00 Senna/Docusate Sodium (Laura-Colace) 1 tab BID PO Last administered on 20:51; Start 08/14/17 at 21:00 Sennosides (Senokot) 17.2 mg Q12H PRN PO Moderate constipation; Start at 15:15 Simethicone (Mylicon Chew) 80 mg PCHS PRN CHEW GAS RETENTION; Start 08/15/17 at 20:00 Sodium Chloride 1,000 ml @ 42 mls/hr [id number] IV Last administered on 20:26; Start 08/14/17 at 15:15 Sodium Chloride (NS Flush) 2 ml BID IV FLUSH Last administered on 08/17/17 20 :51; Start 08/14/17 at 21:00 Tamsulosin HCl (Flomax) 0.4 mg BIDPC PO Last administered on 08/18/17 00:07; Start 08/17/17 at 23:49 Assessment and Plan Assessment and Plan pulmonary embolism x2 DVT will dc hydrocodone may cause confusion Discussed Condition With patient Stan Rodriguez DO Aug 18, 2017 09:58
--- NOTE | 2017-08-18 10:48 | RADRPT ---
EXAM DATE/TIME: 08/18/2017 10:12 [place] COMPARISON: No previous studies available for comparison. INDICATIONS : Short of Breath MEDICAL HISTORY : Hypertension. Chronic obstructive pulmonary disease. diabetic, carcinoma prostate SURGICAL HISTORY : Appendectomy. ENCOUNTER: Initial ACUITY: 2 days PAIN SCORE: 0/10 LOCATION: Bilateral chest FINDINGS: The heart size is normal. The lungs are grossly clear. There some elevation of the hemidiaphragms maría ecially on the left. CONCLUSION: No acute disease. Jace Washington MD on August 18, 2017 at 10:46 Board Certified Radiologist. This report was verified electronically.
[2017-08-18] MEDS: APIXABAN 5 MG TABLET PO SCH ×2 (10:52→21:04)
[2017-08-18] MEDS: DOCUSATE SODIUM 100 MG CAP PO SCH ×3 (10:52→17:19)
[2017-08-18] MEDS: CITALOPRAM HYDROBROMIDE 20 MG TAB PO SCH (10:52)
[2017-08-18] MEDS: DOCUSATE SODIUM 50 MG/SENNA 8.6 MG TAB PO SCH ×2 (10:52→21:05)
[2017-08-18] MEDS: amLODIPine BESYLATE 5 MG TAB PO SCH (10:52)
[2017-08-18] MEDS: POLYETHYLENE GLYCOL 17 GM PKG PO SCH (10:53)
[2017-08-18] MEDS: LISINOPRIL 20 MG TAB PO SCH ×2 (10:53→21:04)
[2017-08-18] MEDS: SODIUM CHLORIDE 0.9% FLUSH 10 ML FLUSH IV FLUSH SCH ×2 (10:53→21:13)
[2017-08-18] MEDS: PANTOPRAZOLE SOD 20 MG DELAYED RELEASE TAB PO SCH (10:53)
[2017-08-18] MEDS: risperiDONE 0.5 MG TAB PO SCH ×2 (10:53→21:05)
[2017-08-18] MEDS: INSULIN ASPART SUPPLEMENTAL SCALE SQ SCH ×4 (10:54→21:13)
--- NOTE | 2017-08-18 12:25 | HHI.GIFU ---
Subjective Remarks feeling better no abdominal pain or sxs at present Objective Vitals I&O Vital Signs Date Time Temp Pulse Resp B/P (MAP) Pulse Ox O2 Delivery O2 Flow Rate FiO2 08/18/17 10:19 97 Nasal Cannula 2.00 08/18/17 08:00 98.6 90 18 144/66 (92) 96 08/18/17 04:00 98.3 94 18 169/79 (109) 94 08/18/17 03:53 Nasal Cannula 2.00 08/18/17 00:00 98.3 99 21 161/78 (105) 94 08/18/17 00:00 Nasal Cannula 2.00 08/17/17 22:37 Nasal Cannula 2.00 08/17/17 20:00 98.3 94 18 158/83 (108) 94 08/17/17 20:00 Nasal Cannula 2.00 08/17/17 16:24 20 08/17/17 16:00 99.3 109 18 151/69 (96) 92 08/17/17 15:17 94 Nasal Cannula 2.00 08/17/17 13:00 99.1 101 18 150/67 (94) 94 I/O 08/17/17 08/17/17 08/17/17 08/18/17 08/18/17 08/18/17 07:00 15:00 23:00 07:00 15:00 23:00 Intake Total 200 ml 240 ml 240 ml Output Total 400 ml 125 ml 50 ml 1600 ml Balance -200 ml 115 ml -50 ml -1360 ml Intake Oral 200 ml 240 ml 240 ml Output Urine Total 400 ml 125 ml 50 ml 1600 ml Bladder Scan Volume Amount 876 ml 24 ml 388 ml # Voids 1 # Bowel Movements 0 0 0 0 Laboratory Laboratory Tests Test 08/18/17 08:42 White Blood Count 6.8 Red Blood Count 3.86 Hemoglobin 11.7 Hematocrit 35.3 Mean Corpuscular Volume 91.6 Mean Corpuscular Hemoglobin 30.3 Mean Corpuscular Hemoglobin Concent 33.1 Red Cell Distribution Width 13.9 Platelet Count 123 Mean Platelet Volume 9.0 Blood Urea Nitrogen 16 Creatinine 0.86 Random Glucose 163 Calcium Level 9.5 Sodium Level 141 Potassium Level 3.2 Chloride Level 111 Carbon Dioxide Level 21.1 Anion Gap 9 Estimat Glomerular Filtration Rate 84 Ammonia 15 B-Type Natriuretic Peptide 99 Imaging Laboratory Tests Test 08/14/17 08:00 08/14/17 20:30 08/15/17 01:11 08/16/17 11:20 Prothrombin Time 11.4 SEC Prothromb Time International Ratio 1.0 RATIO Total Creatine Kinase 45 U/L Lipase 115 U/L Nasal Screen MRSA (PCR) MRSA NOT DETECTED Blood Urea Nitrogen 15 MG/DL Creatinine 0.96 MG/DL Random Glucose 130 MG/DL Total Protein 6.0 GM/DL Albumin 3.1 GM/DL Calcium Level 9.4 MG/DL Alkaline Phosphatase 88 U/L Aspartate Amino Transf (AST/SGOT) 19 U/L Alanine Aminotransferase (ALT/SGPT) 30 U/L Total Bilirubin 0.6 MG/DL Sodium Level 144 MEQ/L Potassium Level 3.5 MEQ/L Chloride Level 112 MEQ/L Carbon Dioxide Level 21.9 MEQ/L Troponin I 0.87 NG/ML Activated Partial Thromboplast Time 53.5 SEC Test 08/17/17 10:01 08/18/17 08:42 Neutrophils (%) (Auto) 74.3 % Lymphocytes (%) (Auto) 12.8 % Monocytes (%) (Auto) 10.4 % Eosinophils (%) (Auto) 2.1 % Basophils (%) (Auto) 0.4 % Neutrophils # (Auto) 6.3 TH/MM3 Lymphocytes # (Auto) 1.1 TH/MM3 Monocytes # (Auto) 0.9 TH/MM3 Eosinophils # (Auto) 0.2 TH/MM3 Basophils # (Auto) 0.0 TH/MM3 CBC Comment DIFF FINAL Differential Comment Blood Urea Nitrogen 16 MG/DL 16 MG/DL Creatinine 0.87 MG/DL 0.86 MG/DL Random Glucose 162 MG/DL 163 MG/DL Calcium Level 9.8 MG/DL 9.5 MG/DL Phosphorus Level 1.6 MG/DL Magnesium Level 1.9 MG/DL Sodium Level 143 MEQ/L 141 MEQ/L Potassium Level 3.4 MEQ/L 3.2 MEQ/L Chloride Level 112 MEQ/L 111 MEQ/L Carbon Dioxide Level 18.7 MEQ/L 21.1 MEQ/L White Blood Count 6.8 TH/MM3 Red Blood Count 3.86 MIL/MM3 Hemoglobin 11.7 GM/DL Hematocrit 35.3 % Mean Corpuscular Volume 91.6 FL Mean Corpuscular Hemoglobin 30.3 PG Mean Corpuscular Hemoglobin Concent 33.1 % Red Cell Distribution Width 13.9 % Platelet Count 123 TH/MM3 Mean Platelet Volume 9.0 FL Anion Gap 9 MEQ/L Estimat Glomerular Filtration Rate 84 ML/MIN Ammonia 15 MCMOL/L B-Type Natriuretic Peptide 99 PG/ML Physical Exam resting comfortably CHEST: Chest is clear to . CARDIAC: Regular rate and rhythm with no murmur gallop or rubs. ABDOMEN: obese soft no rebound BS present nontender EXTREMITIES: No clubbing, cyanosis, or edema. Assessment and Plan Assessment: (1) Pulmonary embolism ICD Codes: I26.99 - Other pulmonary embolism without acute cor pulmonale Status: Acute Plan ... appears stable GI discussed w will sign off continue medical therapy call if needed again Problem Qualifiers (1) Pulmonary embolism: Bill Wallace MD Aug 18, 2017 12:25
[2017-08-18] MEDS: ACETAMINOPHEN/CODEINE 300 MG/30 MG TAB PO PRN ×3 (13:02→21:11)
--- NOTE | 2017-08-18 17:17 | PD.CARD.PN ---
Subjective Subjective Remarks Sitting up in bed without distress. Feeling better. Wants to go home. Denies pain or needs. Objective Medications Current Medications Medications (Trade) Dose Ordered Sig/Marion Route Start Time Stop Time Status Last Admin (NS Flush) 2 ml UNSCH PRN IV FLUSH 08/14/17 15:15 (NS Flush) 2 ml BID IV FLUSH 08/14/17 21:00 08/18/17 10:53 (Tylenol) 650 mg Q4H PRN PO 08/14/17 15:15 08/15/17 03:33 (Zofran Inj) 4 mg Q6H PRN IVP 08/14/17 15:15 08/15/17 02:43 (Narcan Inj) 0.4 mg UNSCH PRN IV PUSH 08/14/17 15:15 (Laura-Colace) 1 tab BID PO 08/14/17 21:00 08/18/17 10:52 (Milk Of Magnesia Liq) 30 ml Q12H PRN PO 08/14/17 15:15 08/16/17 15:55 (Senokot) 17.2 mg Q12H PRN PO 08/14/17 15:15 (Dulcolax Supp) 10 mg DAILY PRN RECTAL 08/14/17 15:15 (Lactulose Liq) 30 ml DAILY PRN PO 08/14/17 15:15 08/15/17 08:13 Sodium Chloride 1,000 ml @ 42 mls/hr [id number] IV 08/14/17 15:15 08/16/17 20:26 (NovoLOG SUPPLEMENTAL SCALE) 1 ACHS SLIDING SCALE SQ 08/14/17 17:00 08/18/17 13:04 (Norvasc) 10 mg DAILY PO 08/15/17 09:00 08/18/17 10:52 (CeleXA) 20 mg DAILY PO 08/15/17 09:00 08/18/17 10:52 (Ocuflox 0.3% Opth Soln) 1 drop Q4HR EACH EYE 08/14/17 16:00 08/18/17 13:04 Patient Own Medication PT OWN MED: (Empagliflozin (Jardian... DAILY PO 08/15/17 09:00 Future Hold (Protonix) 20 mg DAILY PO 08/15/17 09:00 08/18/17 10:53 Miscellaneous Information Patient in critical care unit? Ass... Q361D .XX 08/14/17 20:30 (Chlorhexidine 2% Cloth) 3 pack DAILY@04 TOPICAL 08/15/17 04:00 08/19/17 04:01 08/18/17 04:00 (Chlorhexidine 2% Cloth) 3 pack UNSCH PRN TOPICAL 08/14/17 20:30 08/19/17 20:27 (Apresoline Inj) 5 mg Q30M PRN IV PUSH 08/15/17 02:15 08/16/17 04:53 (Colace) 100 mg TID PO 08/16/17 09:00 08/18/17 13:03 (Bentyl) 20 mg QID PRN PO 08/15/17 20:00 08/16/17 15:55 (Mylicon Chew) 80 mg PCHS PRN CHEW 08/15/17 20:00 (Miralax) 17 gm DAILY PO 08/16/17 09:00 08/18/17 10:53 (Prinivil) 20 mg BID PO 08/16/17 21:00 08/18/17 10:53 (risperDAL) 0.5 mg BID PO 08/16/17 12:00 08/18/17 10:53 (Eliquis) 10 mg BID PO 08/16/17 21:00 08/23/17 22:00 08/18/17 10:52 (Eliquis) 5 mg BID PO 08/24/17 09:00 (Melatonin) 10 mg HS PO 08/16/17 21:00 08/17/17 20:50 (Xanax) 0.5 mg Q8H PRN PO 08/16/17 17:45 08/17/17 23:28 (Flomax) 0.4 mg BIDPC PO 08/17/17 23:49 08/18/17 10:52 (Tylenol-Codeine #3) 1 tab Q4H PRN PO 08/18/17 10:00 08/18/17 13:02 Vital Signs / I&O Vital Signs Date Time Temp Pulse Resp B/P (MAP) Pulse Ox O2 Delivery O2 Flow Rate FiO2 08/18/17 16:00 98.7 100 18 141/64 (89) 93 08/18/17 12:00 97.9 100 18 148/67 (94) 94 08/18/17 10:19 97 Nasal Cannula 2.00 08/18/17 08:00 100 08/18/17 08:00 98.6 90 18 144/66 (92) 96 08/18/17 08:00 Nasal Cannula 2.00 08/18/17 04:00 98.3 94 18 169/79 (109) 94 08/18/17 03:53 Nasal Cannula 2.00 08/18/17 00:00 98.3 99 21 161/78 (105) 94 08/18/17 00:00 Nasal Cannula 2.00 08/17/17 22:37 Nasal Cannula 2.00 08/17/17 20:00 98.3 94 18 158/83 (108) 94 08/17/17 20:00 Nasal Cannula 2.00 I/O 08/17/17 08/17/17 08/17/17 08/18/17 08/18/17 08/18/17 07:00 15:00 23:00 07:00 15:00 23:00 Intake Total 200 ml 240 ml 240 ml Output Total 400 ml 125 ml 50 ml 1600 ml 600 ml Balance -200 ml 115 ml -50 ml -1360 ml -600 ml Intake Oral 200 ml 240 ml 240 ml Output Urine Total 400 ml 125 ml 50 ml 1600 ml 600 ml Bladder Scan Volume Amount 876 ml 24 ml 57 ml 388 ml # Voids 1 # Bowel Movements 0 0 0 0 Physical Exam GENERAL: Awake, alert. No distress. SKIN: Warm and dry. HEAD: Atraumatic. Normocephalic. EYES: Pupils equal and round. No scleral icterus. No injection or drainage. ENT: No nasal bleeding or discharge. Mucous membranes pink and moist. NECK: Trachea midline. No JVD. CARDIOVASCULAR: Regular rate and rhythm. RESPIRATORY: No accessory muscle use. Clear to auscultation. Breath sounds equal bilaterally. O2 1L nc GASTROINTESTINAL: Abdomen soft, non-tender, nondistended. MUSCULOSKELETAL: Extremities without clubbing, cyanosis, or edema. No obvious deformities. NEUROLOGICAL: Awake and alert. No obvious cranial nerve deficits. Motor grossly within normal limits. Normal speech. PSYCHIATRIC: Appropriate mood and affect; insight and judgment normal. Laboratory Laboratory Tests Test 08/18/17 08:42 White Blood Count 6.8 TH/MM3 Red Blood Count 3.86 MIL/MM3 Hemoglobin 11.7 GM/DL Hematocrit 35.3 % Mean Corpuscular Volume 91.6 FL Mean Corpuscular Hemoglobin 30.3 PG Mean Corpuscular Hemoglobin Concent 33.1 % Red Cell Distribution Width 13.9 % Platelet Count 123 TH/MM3 Mean Platelet Volume 9.0 FL Blood Urea Nitrogen 16 MG/DL Creatinine 0.86 MG/DL Random Glucose 163 MG/DL Calcium Level 9.5 MG/DL Sodium Level 141 MEQ/L Potassium Level 3.2 MEQ/L Chloride Level 111 MEQ/L Carbon Dioxide Level 21.1 MEQ/L Anion Gap 9 MEQ/L Estimat Glomerular Filtration Rate 84 ML/MIN Ammonia 15 MCMOL/L B-Type Natriuretic Peptide 99 PG/ML Imaging Last 24 hours Impressions Chest X-Ray 08/18/17 0600 Signed Impressions: Service Date/Time: Friday, August 18, 2017 10:12 - CONCLUSION: No acute disease. Jace Washington MD Assessment and Plan Assessment and Plan 1. Extensive pulmonary embolism and DVT 2. Paroxysmal atrial fibrillation 3. Hypertension, 4. Diabetes mellitus. 5. Dyslipidemia. 6. COPD. 7. History of TIA. 8. Elevated troponin 9. Acute hypoxic respiratory insufficiency Feeling better. Currently in SR, rate 90. He is anticoagulated with eliquis. Dr. Sebastian to follow tomorrow. Discussed Condition With María Elena Sepulveda Aug 18, 2017 17:17
[2017-08-18] MEDS: MELATONIN 5 MG TAB PO SCH (21:05)
[2017-08-18] MEDS: SODIUM CHLOR 0.9% 1000 ML INJ 1,000 ML IV SCH (21:27)
[2017-08-19] VITALS (9 sets, daily range): BP systolic 124–185; BP diastolic 58–83; PULSE 89–99; RESP 18–20; TEMP 97.6–98.6; O2SAT 91–98
[2017-08-19] MEDS: OFLOXACIN 0.3% OPTH SOLN 5 ML BTL EACH EYE SCH ×6 (00:22→20:16)
[2017-08-19] MEDS: ACETAMINOPHEN/CODEINE 300 MG/30 MG TAB PO PRN ×5 (01:23→20:14)
[2017-08-19] MEDS: CHLORHEXIDINE GLUCONATE 2 % 1 PACK (2 CLOTHS)(taper/protocol) TOPICAL SCH (03:48)
[2017-08-19] MEDS: INSULIN ASPART SUPPLEMENTAL SCALE SQ SCH ×4 (08:00→20:19)
[2017-08-19] MEDS: DOCUSATE SODIUM 100 MG CAP PO SCH ×3 (09:53→18:12)
[2017-08-19] MEDS: SODIUM CHLORIDE 0.9% FLUSH 10 ML FLUSH IV FLUSH SCH ×2 (09:53→20:16)
[2017-08-19] MEDS: CITALOPRAM HYDROBROMIDE 20 MG TAB PO SCH (09:53)
[2017-08-19] MEDS: amLODIPine BESYLATE 5 MG TAB PO SCH (09:54)
[2017-08-19] MEDS: POLYETHYLENE GLYCOL 17 GM PKG PO SCH (09:54)
[2017-08-19] MEDS: LISINOPRIL 20 MG TAB PO SCH ×2 (09:54→20:36)
[2017-08-19] MEDS: APIXABAN 5 MG TABLET PO SCH ×2 (09:54→20:15)
[2017-08-19] MEDS: DOCUSATE SODIUM 50 MG/SENNA 8.6 MG TAB PO SCH ×2 (09:54→20:14)
[2017-08-19] MEDS: risperiDONE 0.5 MG TAB PO SCH ×2 (09:54→20:15)
[2017-08-19] MEDS: TAMSULOSIN HCL 0.4 MG CAP PO SCH ×2 (09:54→18:12)
[2017-08-19] MEDS: PANTOPRAZOLE SOD 20 MG DELAYED RELEASE TAB PO SCH (09:54)
[2017-08-19] MEDS: MAGNESIUM HYDROXIDE SUSP 30 ML CUP PO PRN (10:02)
--- NOTE | 2017-08-19 11:13 | HHI.PR ---
Subjective Remarks Patient alert and oriented. Reports that he feels constipated and having urinary retention. Objective Vital Signs Date Time Temp Pulse Resp B/P (MAP) Pulse Ox O2 Delivery O2 Flow Rate FiO2 08/19/17 10:40 98 Nasal Cannula 2.00 08/19/17 08:20 98.6 99 18 150/69 (96) 98 08/19/17 08:08 95 Nasal Cannula 2.00 08/19/17 04:00 98.4 96 18 141/58 (85) 91 08/19/17 00:00 97.9 93 18 147/70 (95) 91 08/18/17 22:00 Nasal Cannula 2.00 08/18/17 21:16 Nasal Cannula 2.00 08/18/17 20:00 98.3 105 20 157/72 (100) 92 08/18/17 19:55 104 08/18/17 16:00 98.7 100 18 141/64 (89) 93 08/18/17 12:00 97.9 100 18 148/67 (94) 94 I/O 08/18/17 08/18/17 08/18/17 08/19/17 08/19/17 08/19/17 07:00 15:00 23:00 07:00 15:00 23:00 Intake Total 240 ml 822 ml Output Total 1600 ml 600 ml 600 ml Balance -1360 ml -600 ml 222 ml Intake Oral 240 ml 480 ml IV Total 342 ml Output Urine Total 1600 ml 600 ml 600 ml Bladder Scan Volume Amount 24 ml 57 ml 85 ml 388 ml # Bowel Movements 0 Result Diagram: 08/18/1742 08/18/1742 Objective Remarks GENERAL: Alert, uncomfortable SKIN: Warm and dry. HEAD: Normocephalic. EYES: No scleral icterus. No injection or drainage. NECK: Supple, trachea midline. No JVD or lymphadenopathy. CARDIOVASCULAR: Regular rate and rhythm without murmurs, gallops, or rubs. RESPIRATORY: Breath sounds equal bilaterally. No accessory muscle use. GASTROINTESTINAL: Abdomen soft, non-tender, nondistended. MUSCULOSKELETAL: No cyanosis, or edema. BACK: Nontender without obvious deformity. No CVA tenderness. Medications and IVs Current Medications Medications (Trade) Dose Ordered Sig/Marion Route Start Time Stop Time Status Last Admin (NS Flush) 2 ml UNSCH PRN IV FLUSH 08/14/17 15:15 (NS Flush) 2 ml BID IV FLUSH 08/14/17 21:00 08/19/17 09:53 (Tylenol) 650 mg Q4H PRN PO 08/14/17 15:15 08/15/17 03:33 (Zofran Inj) 4 mg Q6H PRN IVP 08/14/17 15:15 08/15/17 02:43 (Narcan Inj) 0.4 mg UNSCH PRN IV PUSH 08/14/17 15:15 (Laura-Colace) 1 tab BID PO 08/14/17 21:00 08/19/17 09:54 (Milk Of Magnesia Liq) 30 ml Q12H PRN PO 08/14/17 15:15 08/19/17 10:02 (Senokot) 17.2 mg Q12H PRN PO 08/14/17 15:15 (Dulcolax Supp) 10 mg DAILY PRN RECTAL 08/14/17 15:15 (Lactulose Liq) 30 ml DAILY PRN PO 08/14/17 15:15 08/15/17 08:13 Sodium Chloride 1,000 ml @ 42 mls/hr [id number] IV 08/14/17 15:15 08/18/17 21:27 (NovoLOG SUPPLEMENTAL SCALE) 1 ACHS SLIDING SCALE SQ 08/14/17 17:00 08/19/17 08:00 (Norvasc) 10 mg DAILY PO 08/15/17 09:00 08/19/17 09:54 (CeleXA) 20 mg DAILY PO 08/15/17 09:00 08/19/17 09:53 (Ocuflox 0.3% Opth Soln) 1 drop Q4HR EACH EYE 08/14/17 16:00 08/19/17 09:51 Patient Own Medication PT OWN MED: (Empagliflozin (Jardian... DAILY PO 08/15/17 09:00 Future Hold (Protonix) 20 mg DAILY PO 08/15/17 09:00 08/19/17 09:54 Miscellaneous Information Patient in critical care unit? Ass... Q361D .XX 08/14/17 20:30 (Chlorhexidine 2% Cloth) 3 pack UNSCH PRN TOPICAL 08/14/17 20:30 08/19/17 20:27 (Apresoline Inj) 5 mg Q30M PRN IV PUSH 08/15/17 02:15 08/16/17 04:53 (Colace) 100 mg TID PO 08/16/17 09:00 08/19/17 09:53 (Bentyl) 20 mg QID PRN PO 08/15/17 20:00 08/16/17 15:55 (Mylicon Chew) 80 mg PCHS PRN CHEW 08/15/17 20:00 (Miralax) 17 gm DAILY PO 08/16/17 09:00 08/19/17 09:54 (Prinivil) 20 mg BID PO 08/16/17 21:00 08/19/17 09:54 (risperDAL) 0.5 mg BID PO 08/16/17 12:00 08/19/17 09:54 (Eliquis) 10 mg BID PO 08/16/17 21:00 08/23/17 22:00 08/19/17 09:54 (Eliquis) 5 mg BID PO 08/24/17 09:00 (Melatonin) 10 mg HS PO 08/16/17 21:00 08/18/17 21:05 (Xanax) 0.5 mg Q8H PRN PO 08/16/17 17:45 08/17/17 23:28 (Flomax) 0.4 mg BIDPC PO 08/17/17 23:49 08/19/17 09:54 (Tylenol-Codeine #3) 1 tab Q4H PRN PO 08/18/17 10:00 08/19/17 09:58 Assessment and Plan Problem List: (1) Pulmonary embolism ICD Codes: I26.99 - Other pulmonary embolism without acute cor pulmonale Status: Acute (2) Hypoxia ICD Codes: R09.02 - Hypoxemia Status: Acute (3) HTN (hypertension) ICD Codes: I10 - Essential (primary) hypertension (4) Depression ICD Codes: F32.9 - Major depressive disorder, single episode, unspecified (5) Diabetes ICD Codes: E11.9 - Type 2 diabetes mellitus without complications Assessment and Plan 08/15/17 Submassive PE: Continue heparin drip. Trending troponins. EDC0 ordered and pending. Per rolling attendant if clinicall decompensate would consider systemic TPA. O2 sats good on 2 lites. . US ordered of bilateral lower extremity DVT noted in LLE. Hypertension; B/P elevated. On norvasc and PRN hydralazine. Will add lisinopril daily and monitor. Depression; Continue home medications Lesion noted on left kidney: Per recommendations on CT scan Ultrasound ordered. Diabetes: BS AC HS on SS will monitor. Abdominal discomfort: GI consulted. Labs ordered for AM On GI prophylaxis 08/16/17 Submassive PE: On heparin drip will discontinue and convert to eliquis. Troponin trending downward. ECHO no regional wall motion abnormalities. Ejection fraction 67%. Per rolling attendant if clinicall decompensate would consider systemic TPA. O2 sats good on room air. US ordered of bilateral lower extremity. Hypertension; B/P elevated. On Norvasc and PRN hydralazine. Will increase lisinopril Depression; Continue home medications Lesion noted on left kidney: Per recommendations on CT scan Ultrasound ordered showing cysts Diabetes: BS AC HS on SS will monitor. Abdominal discomfort: GI consulted Bentyl ordered with symptom improvement Agitation: Will discontinue Dilaudid and add Risperdal. Labs ordered for AM On GI prophylaxis Will transfer out of ICU to step down unit 08/17/17 will move to stepdown unit 08/18/17 will dc hydrocodone may cause confusion 08/19/17 Submassive PE: Eliquis 10 mg BID with stop date . Will then change to Eliquis 5 mg BID. ECHO no regional wall motion abnormalities. Ejection fraction 67%. Postive left lower extremity DVT. PT ordered over weekend. Hypertension; B/P improved at 154/69 with increases in blood pressure medication will continue to monitor. Constipation: Patient on scheduled. bowel regimen will order supp today. Urinary retention: On flomax BID and requiring I+o cath. May need nicholas to [place] if does not improve will assess overnight. Abdominal discomfort: GI consulted and has signed off. Bentyl ordered with symptom improvement Agitation: On Risperdal and PRN Xanax with improvement noted. Labs ordered for today. On GI prophylaxis I and the BISTRO SERVER have both examined this patient and reviewed this and I agree with these findings and plan of care. Stan Rodriguez DO Problem Qualifiers (1) Pulmonary embolism: Flora Ornelas [employer]ER Aug 19, 2017 11:13
[2017-08-19] MEDS ORDERED: BISACODYL 10 MG SUPP RECTAL ONE (12:00)
[2017-08-19 13:22] LABS: HEMATOCRIT 35.5 % (39.0-51.0); MEAN CELL VOLUME 92.6 FL (80.0-100.0); MEAN CORPUSCULAR HEMOGLOBIN 31.3 PG (27.0-34.0); MEAN CORPUSCULAR HGB CONC 33.8 % (32.0-36.0); PLATELET COUNT 129 TH/MM3 (150-450); RED BLOOD COUNT 3.83 MIL/MM3 (4.50-5.90); RED CELL DISTRIBUTION WIDTH 13.9 % (11.6-17.2); REVIEW FLAG FINAL; WHITE BLOOD COUNT 7.6 TH/MM3 (4.0-11.0)
[2017-08-19 13:33] LABS: BICARBONATE 26.7 MEQ/L (21.0-32.0); POTASSIUM 3.2 MEQ/L (3.5-5.1)
--- NOTE | 2017-08-19 15:20 | PD.CARD.PN ---
Subjective Subjective Remarks No CP, still c/o dyspnea and fatigue Objective Medications Current Medications Medications (Trade) Dose Ordered Sig/Marion Route Start Time Stop Time Status Last Admin (NS Flush) 2 ml UNSCH PRN IV FLUSH 08/14/17 15:15 (NS Flush) 2 ml BID IV FLUSH 08/14/17 21:00 08/19/17 09:53 (Tylenol) 650 mg Q4H PRN PO 08/14/17 15:15 08/15/17 03:33 (Zofran Inj) 4 mg Q6H PRN IVP 08/14/17 15:15 08/15/17 02:43 (Narcan Inj) 0.4 mg UNSCH PRN IV PUSH 08/14/17 15:15 (Laura-Colace) 1 tab BID PO 08/14/17 21:00 08/19/17 09:54 (Milk Of Magnesia Liq) 30 ml Q12H PRN PO 08/14/17 15:15 08/19/17 10:02 (Senokot) 17.2 mg Q12H PRN PO 08/14/17 15:15 (Dulcolax Supp) 10 mg DAILY PRN RECTAL 08/14/17 15:15 (Lactulose Liq) 30 ml DAILY PRN PO 08/14/17 15:15 08/15/17 08:13 Sodium Chloride 1,000 ml @ 42 mls/hr [id number] IV 08/14/17 15:15 08/18/17 21:27 (NovoLOG SUPPLEMENTAL SCALE) 1 ACHS SLIDING SCALE SQ 08/14/17 17:00 08/19/17 12:29 (Norvasc) 10 mg DAILY PO 08/15/17 09:00 08/19/17 09:54 (CeleXA) 20 mg DAILY PO 08/15/17 09:00 08/19/17 09:53 (Ocuflox 0.3% Opth Soln) 1 drop Q4HR EACH EYE 08/14/17 16:00 08/19/17 12:44 Patient Own Medication PT OWN MED: (Empagliflozin (Jardian... DAILY PO 08/15/17 09:00 Future Hold (Protonix) 20 mg DAILY PO 08/15/17 09:00 08/19/17 09:54 Miscellaneous Information Patient in critical care unit? Ass... Q361D .XX 08/14/17 20:30 (Chlorhexidine 2% Cloth) 3 pack UNSCH PRN TOPICAL 08/14/17 20:30 08/19/17 20:27 (Apresoline Inj) 5 mg Q30M PRN IV PUSH 08/15/17 02:15 08/16/17 04:53 (Colace) 100 mg TID PO 08/16/17 09:00 08/19/17 12:29 (Bentyl) 20 mg QID PRN PO 08/15/17 20:00 08/16/17 15:55 (Mylicon Chew) 80 mg PCHS PRN CHEW 08/15/17 20:00 (Miralax) 17 gm DAILY PO 08/16/17 09:00 08/19/17 09:54 (Prinivil) 20 mg BID PO 08/16/17 21:00 08/19/17 09:54 (risperDAL) 0.5 mg BID PO 08/16/17 12:00 08/19/17 09:54 (Eliquis) 10 mg BID PO 08/16/17 21:00 08/23/17 22:00 08/19/17 09:54 (Eliquis) 5 mg BID PO 08/24/17 09:00 (Melatonin) 10 mg HS PO 08/16/17 21:00 08/18/17 21:05 (Xanax) 0.5 mg Q8H PRN PO 08/16/17 17:45 08/17/17 23:28 (Flomax) 0.4 mg BIDPC PO 08/17/17 23:49 08/19/17 09:54 (Tylenol-Codeine #3) 1 tab Q4H PRN PO 08/18/17 10:00 08/19/17 14:57 Vital Signs / I&O Vital Signs Date Time Temp Pulse Resp B/P (MAP) Pulse Ox O2 Delivery O2 Flow Rate FiO2 08/19/17 12:06 98.2 94 18 145/65 (91) 96 08/19/17 10:40 98 Nasal Cannula 2.00 08/19/17 08:20 98.6 99 18 150/69 (96) 98 08/19/17 08:08 95 Nasal Cannula 2.00 08/19/17 04:00 98.4 96 18 141/58 (85) 91 08/19/17 00:00 97.9 93 18 147/70 (95) 91 08/18/17 22:00 Nasal Cannula 2.00 08/18/17 21:16 Nasal Cannula 2.00 08/18/17 20:00 98.3 105 20 157/72 (100) 92 08/18/17 19:55 104 08/18/17 16:00 98.7 100 18 141/64 (89) 93 I/O 08/18/17 08/18/17 08/18/17 08/19/17 08/19/17 08/19/17 07:00 15:00 23:00 07:00 15:00 23:00 Intake Total 240 ml 822 ml Output Total 1600 ml 600 ml 600 ml Balance -1360 ml -600 ml 222 ml Intake Oral 240 ml 480 ml IV Total 342 ml Output Urine Total 1600 ml 600 ml 600 ml Bladder Scan Volume Amount 24 ml 57 ml 85 ml 163 ml 388 ml 163 ml # Bowel Movements 0 Physical Exam GENERAL: In mild distress SKIN: Warm and dry. HEAD: Normocephalic. EYES: No scleral icterus. No injection or drainage. NECK: Supple, trachea midline. No JVD or lymphadenopathy. CARDIOVASCULAR: Regular rate and rhythm without murmurs, gallops, or rubs. RESPIRATORY: Breath sounds equal bilaterally. No accessory muscle use. GASTROINTESTINAL: Abdomen soft, non-tender, nondistended. MUSCULOSKELETAL: No cyanosis, mild edema. Laboratory Laboratory Tests Test 08/19/17 12:10 White Blood Count 7.6 TH/MM3 Red Blood Count 3.83 MIL/MM3 Hemoglobin 12.0 GM/DL Hematocrit 35.5 % Mean Corpuscular Volume 92.6 FL Mean Corpuscular Hemoglobin 31.3 PG Mean Corpuscular Hemoglobin Concent 33.8 % Red Cell Distribution Width 13.9 % Platelet Count 129 TH/MM3 Mean Platelet Volume 9.1 FL Blood Urea Nitrogen 17 MG/DL Creatinine 0.97 MG/DL Random Glucose 207 MG/DL Calcium Level 9.0 MG/DL Sodium Level 143 MEQ/L Potassium Level 3.2 MEQ/L Chloride Level 111 MEQ/L Carbon Dioxide Level 26.7 MEQ/L Anion Gap 5 MEQ/L Estimat Glomerular Filtration Rate 73 ML/MIN Assessment and Plan Problem List: (1) Pulmonary embolism ICD Codes: I26.99 - Other pulmonary embolism without acute cor pulmonale Status: Acute (2) DVT (deep venous thrombosis) ICD Codes: I82.409 - Acute embolism and thrombosis of unspecified deep veins of unspecified lower extremity (3) HTN (hypertension) ICD Codes: I10 - Essential (primary) hypertension (4) Diabetes ICD Codes: E11.9 - Type 2 diabetes mellitus without complications Assessment and Plan Continue anticoagulation with Eliquis per protocol. Increase activity. Continue antihypertensive tx. Echo with no evidence or RV dysfunction. D/w pt and family. Problem Qualifiers (1) Pulmonary embolism: Makenzie Chin MD Aug 19, 2017 15:20
--- NOTE | 2017-08-19 16:16 | HHI.PR ---
Subjective Remarks 82 YOWM with SOB,Bilat PE Breathing better at BS Started Eliquis has constipation Weaned to RA Objective Vital Signs Vital Signs Date Time Temp Pulse Resp B/P (MAP) Pulse Ox O2 Delivery O2 Flow Rate FiO2 08/19/17 12:06 98.2 94 18 145/65 (91) 96 08/19/17 10:40 98 Nasal Cannula 2.00 08/19/17 08:20 98.6 99 18 150/69 (96) 98 08/19/17 08:08 95 Nasal Cannula 2.00 08/19/17 04:00 98.4 96 18 141/58 (85) 91 08/19/17 00:00 97.9 93 18 147/70 (95) 91 08/18/17 22:00 Nasal Cannula 2.00 08/18/17 21:16 Nasal Cannula 2.00 08/18/17 20:00 98.3 105 20 157/72 (100) 92 08/18/17 19:55 104 I/O 08/18/17 08/18/17 08/18/17 08/19/17 08/19/17 08/19/17 07:00 15:00 23:00 07:00 15:00 23:00 Intake Total 240 ml 822 ml Output Total 1600 ml 600 ml 600 ml Balance -1360 ml -600 ml 222 ml Intake Oral 240 ml 480 ml IV Total 342 ml Output Urine Total 1600 ml 600 ml 600 ml Bladder Scan Volume Amount 24 ml 57 ml 85 ml 163 ml 388 ml 163 ml # Bowel Movements 0 Result Diagram: 08/19/17 1210 08/19/17 1210 Objective Remarks GENERAL: MBMN WM, mild sob SKIN: Warm and dry. HEAD: Normocephalic. EYES: No scleral icterus. No injection or drainage. NECK: Supple, trachea midline. No JVD or lymphadenopathy. CARDIOVASCULAR: Regular rate and rhythm without murmurs, gallops, or rubs. RESPIRATORY: Breath sounds equal bilaterally. No accessory muscle use. GASTROINTESTINAL: Abdomen soft, non-tender, nondistended. MUSCULOSKELETAL: No cyanosis, or edema. BACK: Nontender without obvious deformity. No CVA tenderness. A/P Assessment and Plan Bilat PE COPD HTN H/O TIA PLAN: Eliquis 5 mg bid Monitor PTT Dw pt and his at BS Cont Bentyl Dulcolax supp Aneja,Nicho Serar MD Aug 19, 2017 16:16
[2017-08-19] MEDS ORDERED: POTASSIUM CHLORIDE 20 MEQ CONTROLLED RELEASE TAB PO ONE (18:30)
[2017-08-19] MEDS: MELATONIN 5 MG TAB PO SCH (20:33)
[2017-08-19] MEDS: SODIUM CHLOR 0.9% 1000 ML INJ 1,000 ML IV SCH (20:44)
[2017-08-20] VITALS (8 sets, daily range): BP systolic 127–167; BP diastolic 62–94; PULSE 52–102; RESP 18–20; TEMP 97.5–98.3; O2SAT 93–97
[2017-08-20] MEDS: OFLOXACIN 0.3% OPTH SOLN 5 ML BTL EACH EYE SCH ×8 (00:39→23:14)
[2017-08-20] MEDS: ACETAMINOPHEN/CODEINE 300 MG/30 MG TAB PO PRN ×5 (04:49→23:15)
[2017-08-20 07:29] LABS: HEMATOCRIT 34.8 % (39.0-51.0); MEAN CELL VOLUME 91.8 FL (80.0-100.0); MEAN CORPUSCULAR HEMOGLOBIN 30.9 PG (27.0-34.0); MEAN CORPUSCULAR HGB CONC 33.7 % (32.0-36.0); PLATELET COUNT 136 TH/MM3 (150-450); RED CELL DISTRIBUTION WIDTH 13.9 % (11.6-17.2); REVIEW FLAG FINAL; WHITE BLOOD COUNT 6.4 TH/MM3 (4.0-11.0)
[2017-08-20 07:47] LABS: BICARBONATE 22.9 MEQ/L (21.0-32.0); POTASSIUM 3.8 MEQ/L (3.5-5.1)
[2017-08-20] MEDS: PANTOPRAZOLE SOD 20 MG DELAYED RELEASE TAB PO SCH (08:32)
[2017-08-20] MEDS: LISINOPRIL 20 MG TAB PO SCH ×2 (08:32→21:07)
[2017-08-20] MEDS: risperiDONE 0.5 MG TAB PO SCH ×2 (08:32→21:07)
[2017-08-20] MEDS: DOCUSATE SODIUM 100 MG CAP PO SCH ×3 (08:33→18:19)
[2017-08-20] MEDS: DOCUSATE SODIUM 50 MG/SENNA 8.6 MG TAB PO SCH ×2 (08:33→21:11)
[2017-08-20] MEDS: amLODIPine BESYLATE 5 MG TAB PO SCH (08:33)
[2017-08-20] MEDS: INSULIN ASPART SUPPLEMENTAL SCALE SQ SCH ×4 (08:33→21:08)
[2017-08-20] MEDS: SODIUM CHLORIDE 0.9% FLUSH 10 ML FLUSH IV FLUSH SCH ×2 (08:33→21:06)
[2017-08-20] MEDS: TAMSULOSIN HCL 0.4 MG CAP PO SCH ×2 (08:33→18:19)
[2017-08-20] MEDS: CITALOPRAM HYDROBROMIDE 20 MG TAB PO SCH (08:33)
[2017-08-20] MEDS: POLYETHYLENE GLYCOL 17 GM PKG PO SCH (08:33)
[2017-08-20] MEDS: APIXABAN 5 MG TABLET PO SCH ×2 (08:40→21:07)
[2017-08-20] MEDS ORDERED: MINERAL OIL ENEMA 118 ML BTL RECTAL PRN (08:45)
--- NOTE | 2017-08-20 13:22 | PD.CARD.PN ---
Subjective Subjective Remarks Feels better, less SOB, ambulating with PT Objective Medications Current Medications Medications (Trade) Dose Ordered Sig/Marion Route Start Time Stop Time Status Last Admin (NS Flush) 2 ml UNSCH PRN IV FLUSH 08/14/17 15:15 (NS Flush) 2 ml BID IV FLUSH 08/14/17 21:00 08/20/17 08:33 (Tylenol) 650 mg Q4H PRN PO 08/14/17 15:15 08/15/17 03:33 (Zofran Inj) 4 mg Q6H PRN IVP 08/14/17 15:15 08/15/17 02:43 (Narcan Inj) 0.4 mg UNSCH PRN IV PUSH 08/14/17 15:15 (Laura-Colace) 1 tab BID PO 08/14/17 21:00 08/20/17 08:33 (Milk Of Magnesia Liq) 30 ml Q12H PRN PO 08/14/17 15:15 08/19/17 10:02 (Senokot) 17.2 mg Q12H PRN PO 08/14/17 15:15 (Dulcolax Supp) 10 mg DAILY PRN RECTAL 08/14/17 15:15 (Lactulose Liq) 30 ml DAILY PRN PO 08/14/17 15:15 08/15/17 08:13 (NovoLOG SUPPLEMENTAL SCALE) 1 ACHS SLIDING SCALE SQ 08/14/17 17:00 08/20/17 12:57 (Norvasc) 10 mg DAILY PO 08/15/17 09:00 08/20/17 08:33 (CeleXA) 20 mg DAILY PO 08/15/17 09:00 08/20/17 08:33 (Ocuflox 0.3% Opth Soln) 1 drop Q4HR EACH EYE 08/14/17 16:00 08/20/17 12:57 Patient Own Medication PT OWN MED: (Empagliflozin (Jardian... DAILY PO 08/15/17 09:00 Future Hold (Protonix) 20 mg DAILY PO 08/15/17 09:00 08/20/17 08:32 Miscellaneous Information Patient in critical care unit? Ass... Q361D .XX 08/14/17 20:30 (Apresoline Inj) 5 mg Q30M PRN IV PUSH 08/15/17 02:15 08/16/17 04:53 (Colace) 100 mg TID PO 08/16/17 09:00 08/20/17 12:57 (Bentyl) 20 mg QID PRN PO 08/15/17 20:00 08/16/17 15:55 (Mylicon Chew) 80 mg PCHS PRN CHEW 08/15/17 20:00 (Miralax) 17 gm DAILY PO 08/16/17 09:00 08/20/17 08:33 (Prinivil) 20 mg BID PO 08/16/17 21:00 08/20/17 08:32 (risperDAL) 0.5 mg BID PO 08/16/17 12:00 08/20/17 08:32 (Eliquis) 10 mg BID PO 08/16/17 21:00 08/23/17 22:00 08/20/17 08:40 (Eliquis) 5 mg BID PO 08/24/17 09:00 (Melatonin) 10 mg HS PO 08/16/17 21:00 08/19/17 20:33 (Xanax) 0.5 mg Q8H PRN PO 08/16/17 17:45 08/17/17 23:28 (Flomax) 0.4 mg BIDPC PO 08/17/17 23:49 08/20/17 08:33 (Tylenol-Codeine #3) 1 tab Q4H PRN PO 08/18/17 10:00 08/20/17 13:07 (Fleet Mineral Oil Enema) 118 ml DAILY PRN RECTAL 08/20/17 08:45 Vital Signs / I&O Vital Signs Date Time Temp Pulse Resp B/P (MAP) Pulse Ox O2 Delivery O2 Flow Rate FiO2 08/20/17 13:10 96 Nasal Cannula 2.00 08/20/17 12:05 97.7 92 18 127/62 (83) 96 08/20/17 08:44 Room Air 2.00 08/20/17 08:06 97.5 52 19 160/74 (102) 97 08/20/17 04:00 97.8 102 20 167/94 (118) 93 08/20/17 00:00 98.3 102 18 157/89 (111) 95 08/19/17 20:18 94 08/19/17 20:00 97.6 89 20 185/83 (117) 94 08/19/17 19:30 Nasal Cannula 2.00 08/19/17 19:09 95 08/19/17 16:06 98.2 97 20 124/60 (81) 95 I/O 08/19/17 08/19/17 08/19/17 08/20/17 08/20/17 08/20/17 07:00 15:00 23:00 07:00 15:00 23:00 Intake Total 822 ml 600 ml 240 ml Output Total 600 ml 500 ml 700 ml Balance 222 ml 100 ml -460 ml Intake Oral 480 ml 600 ml 240 ml IV Total 342 ml Output Urine Total 600 ml 500 ml 700 ml Bladder Scan Volume Amount 85 ml 163 ml 19 ml 250 ml 163 ml 250 ml 163 ml # Bowel Movements 0 0 Physical Exam GENERAL: In NAD SKIN: Warm and dry. HEAD: Normocephalic. EYES: No scleral icterus. No injection or drainage. NECK: Supple, trachea midline. No JVD or lymphadenopathy. CARDIOVASCULAR: Regular rate and rhythm without murmurs, gallops, or rubs. RESPIRATORY: Breath sounds equal bilaterally. No accessory muscle use. GASTROINTESTINAL: Abdomen soft, non-tender, nondistended. MUSCULOSKELETAL: No cyanosis, mild edema. Laboratory Laboratory Tests Test 08/20/17 05:55 08/20/17 06:55 Blood Urea Nitrogen 18 MG/DL Creatinine 1.03 MG/DL Random Glucose 143 MG/DL Calcium Level 9.6 MG/DL Sodium Level 144 MEQ/L Potassium Level 3.8 MEQ/L Chloride Level 112 MEQ/L Carbon Dioxide Level 22.9 MEQ/L Anion Gap 9 MEQ/L Estimat Glomerular Filtration Rate 68 ML/MIN White Blood Count 6.4 TH/MM3 Red Blood Count 3.80 MIL/MM3 Hemoglobin 11.7 GM/DL Hematocrit 34.8 % Mean Corpuscular Volume 91.8 FL Mean Corpuscular Hemoglobin 30.9 PG Mean Corpuscular Hemoglobin Concent 33.7 % Red Cell Distribution Width 13.9 % Platelet Count 136 TH/MM3 Mean Platelet Volume 8.8 FL Assessment and Plan Problem List: (1) Pulmonary embolism ICD Codes: I26.99 - Other pulmonary embolism without acute cor pulmonale Status: Acute (2) DVT (deep venous thrombosis) ICD Codes: I82.409 - Acute embolism and thrombosis of unspecified deep veins of unspecified lower extremity (3) HTN (hypertension) ICD Codes: I10 - Essential (primary) hypertension (4) Diabetes ICD Codes: E11.9 - Type 2 diabetes mellitus without complications Assessment and Plan Gradual improvement. Continue anticoagulation with Eliquis per protocol. Increase activity, continue PT. Continue antihypertensive tx. Echo with no evidence or RV dysfunction. Plan d/w pt and family. Problem Qualifiers (1) Pulmonary embolism: Makenzie Chin MD Aug 20, 2017 13:22
--- NOTE | 2017-08-20 14:29 | HHI.PR ---
Subjective Remarks Patient alert and oriented. Continues to feel constipated. No other complaints. Objective Vital Signs Date Time Temp Pulse Resp B/P (MAP) Pulse Ox O2 Delivery O2 Flow Rate FiO2 08/20/17 13:10 96 Nasal Cannula 2.00 08/20/17 12:05 97.7 92 18 127/62 (83) 96 08/20/17 08:44 Room Air 2.00 08/20/17 08:06 97.5 52 19 160/74 (102) 97 08/20/17 04:00 97.8 102 20 167/94 (118) 93 08/20/17 00:00 98.3 102 18 157/89 (111) 95 08/19/17 20:18 94 08/19/17 20:00 97.6 89 20 185/83 (117) 94 08/19/17 19:30 Nasal Cannula 2.00 08/19/17 19:09 95 08/19/17 16:06 98.2 97 20 124/60 (81) 95 I/O 08/19/17 08/19/17 08/19/17 08/20/17 08/20/17 08/20/17 07:00 15:00 23:00 07:00 15:00 23:00 Intake Total 822 ml 600 ml 240 ml Output Total 600 ml 500 ml 700 ml Balance 222 ml 100 ml -460 ml Intake Oral 480 ml 600 ml 240 ml IV Total 342 ml Output Urine Total 600 ml 500 ml 700 ml Bladder Scan Volume Amount 85 ml 163 ml 19 ml 250 ml 300 ml 163 ml 250 ml 163 ml # Bowel Movements 0 0 Result Diagram: 08/20/17 0655 08/20/17 0555 Objective Remarks GENERAL: Alert, uncomfortable SKIN: Warm and dry. HEAD: Normocephalic. EYES: No scleral icterus. No injection or drainage. NECK: Supple, trachea midline. No JVD or lymphadenopathy. CARDIOVASCULAR: Regular rate and rhythm without murmurs, gallops, or rubs. RESPIRATORY: Breath sounds equal bilaterally. No accessory muscle use. GASTROINTESTINAL: Abdomen soft, non-tender, nondistended. MUSCULOSKELETAL: No cyanosis, or edema. BACK: Nontender without obvious deformity. No CVA tenderness. Medications and IVs Current Medications Medications (Trade) Dose Ordered Sig/Marion Route Start Time Stop Time Status Last Admin (NS Flush) 2 ml UNSCH PRN IV FLUSH 10/18/17 15:15 (NS Flush) 2 ml BID IV FLUSH 08/14/17 21:00 08/20/17 08:33 (Tylenol) 650 mg Q4H PRN PO 08/14/17 15:15 08/15/17 03:33 (Zofran Inj) 4 mg Q6H PRN IVP 08/14/17 15:15 08/15/17 02:43 (Narcan Inj) 0.4 mg UNSCH PRN IV PUSH 08/14/17 15:15 (Laura-Colace) 1 tab BID PO 08/14/17 21:00 08/20/17 08:33 (Milk Of Magnesia Liq) 30 ml Q12H PRN PO 08/14/17 15:15 08/19/17 10:02 (Senokot) 17.2 mg Q12H PRN PO 08/14/17 15:15 (Dulcolax Supp) 10 mg DAILY PRN RECTAL 08/14/17 15:15 (Lactulose Liq) 30 ml DAILY PRN PO 08/14/17 15:15 08/15/17 08:13 (NovoLOG SUPPLEMENTAL SCALE) 1 ACHS SLIDING SCALE SQ 08/14/17 17:00 08/20/17 12:57 (Norvasc) 10 mg DAILY PO 08/15/17 09:00 08/20/17 08:33 (CeleXA) 20 mg DAILY PO 08/15/17 09:00 08/20/17 08:33 (Ocuflox 0.3% Opth Soln) 1 drop Q4HR EACH EYE 08/14/17 16:00 08/20/17 12:57 Patient Own Medication PT OWN MED: (Empagliflozin (Jardian... DAILY PO 08/15/17 09:00 Future Hold (Protonix) 20 mg DAILY PO 08/15/17 09:00 08/20/17 08:32 Miscellaneous Information Patient in critical care unit? Ass... Q361D .XX 08/14/17 20:30 (Apresoline Inj) 5 mg Q30M PRN IV PUSH 08/15/17 02:15 08/16/17 04:53 (Colace) 100 mg TID PO 08/16/17 09:00 08/20/17 12:57 (Bentyl) 20 mg QID PRN PO 08/15/17 20:00 08/16/17 15:55 (Mylicon Chew) 80 mg PCHS PRN CHEW 08/15/17 20:00 (Miralax) 17 gm DAILY PO 08/16/17 09:00 08/20/17 08:33 (Prinivil) 20 mg BID PO 08/16/17 21:00 08/20/17 08:32 (risperDAL) 0.5 mg BID PO 08/16/17 12:00 08/20/17 08:32 (Eliquis) 10 mg BID PO 08/16/17 21:00 08/23/17 22:00 08/20/17 08:40 (Eliquis) 5 mg BID PO 08/24/17 09:00 (Melatonin) 10 mg HS PO 08/16/17 21:00 08/19/17 20:33 (Xanax) 0.5 mg Q8H PRN PO 08/16/17 17:45 08/17/17 23:28 (Flomax) 0.4 mg BIDPC PO 08/17/17 23:49 08/20/17 08:33 (Tylenol-Codeine #3) 1 tab Q4H PRN PO 08/18/17 10:00 08/20/17 13:07 (Fleet Mineral Oil Enema) 118 ml DAILY PRN RECTAL 08/20/17 08:45 Assessment and Plan Problem List: (1) Pulmonary embolism ICD Codes: I26.99 - Other pulmonary embolism without acute cor pulmonale Status: Acute (2) Hypoxia ICD Codes: R09.02 - Hypoxemia Status: Acute (3) HTN (hypertension) ICD Codes: I10 - Essential (primary) hypertension (4) Depression ICD Codes: F32.9 - Major depressive disorder, single episode, unspecified (5) Diabetes ICD Codes: E11.9 - Type 2 diabetes mellitus without complications Assessment and Plan 08/15/17 Submassive PE: Continue heparin drip. Trending troponins. EDC0 ordered and pending. Per genetic engineer if clinicall decompensate would consider systemic TPA. O2 sats good on 2 lites. . US ordered of bilateral lower extremity DVT noted in LLE. Hypertension; B/P elevated. On norvasc and PRN hydralazine. Will add lisinopril daily and monitor. Depression; Continue home medications Lesion noted on left kidney: Per recommendations on CT scan Ultrasound ordered. Diabetes: BS AC HS on SS will monitor. Abdominal discomfort: GI consulted. Labs ordered for AM On GI prophylaxis 08/16/17 Submassive PE: On heparin drip will discontinue and convert to eliquis. Troponin trending downward. ECHO no regional wall motion abnormalities. Ejection fraction 67%. Per genetic engineer if clinicall decompensate would consider systemic TPA. O2 sats good on room air. US ordered of bilateral lower extremity. Hypertension; B/P elevated. On Norvasc and PRN hydralazine. Will increase lisinopril Depression; Continue home medications Lesion noted on left kidney: Per recommendations on CT scan Ultrasound ordered showing cysts Diabetes: BS AC HS on SS will monitor. Abdominal discomfort: GI consulted Bentyl ordered with symptom improvement Agitation: Will discontinue Dilaudid and add Risperdal. Labs ordered for AM On GI prophylaxis Will transfer out of ICU to step down unit 08/17/17 will move to stepdown unit 08/18/17 will dc hydrocodone may cause confusion 08/19/17 Submassive PE: Eliquis 10 mg BID with stop date . Will then change to Eliquis 5 mg BID. ECHO no regional wall motion abnormalities. Ejection fraction 67%. Postive left lower extremity DVT. PT ordered over weekend. Hypertension; B/P improved at 154/69 with increases in blood pressure medication will continue to monitor. Constipation: Patient on scheduled. bowel regimen will order supp today. Urinary retention: On flomax BID and requiring I+o cath. May need nicholas to SD if does not improve will assess overnight. Abdominal discomfort: GI consulted and has signed off. Bentyl ordered with symptom improvement Agitation: On Risperdal and PRN Xanax with improvement noted. Labs ordered for today. 08/20/17 PE: Continue eliquis and changing to 5 mg BID on the . HTN: continue current therapy well controlled Constipation: supp given yesterday with no BM. Fleets ordered for today. Urinary retention: on flomax. still requiring to be I+O cath. Discussed possibly placing nicholas catheter but patient would like to wait. Will reassess tomorrow PT/OT on GI Prophylaxis. Plan for discharge to [facility] tomorrow for review today. I and the SEALANT MIXER have both examined this patient and reviewed this and I agree with these findings and plan of care. Stan Rodriguez DO Discussed Condition With nursing Discharge Planning Rehab Problem Qualifiers (1) Pulmonary embolism: Flora Ornelas [facility] Aug 20, 2017 14:29
--- NOTE | 2017-08-20 17:58 | HHI.PR ---
Subjective Remarks 82 YOWM with SOB,Bilat PE Breathing better at BS Started Jaylin has constipation uses 02 off and on Objective Vital Signs Vital Signs Date Time Temp Pulse Resp B/P (MAP) Pulse Ox O2 Delivery O2 Flow Rate FiO2 08/20/17 16:08 98.2 95 19 140/68 (92) 95 08/20/17 13:10 96 Nasal Cannula 2.00 08/20/17 12:05 97.7 92 18 127/62 (83) 96 08/20/17 08:44 Room Air 2.00 08/20/17 08:06 97.5 52 19 160/74 (102) 97 08/20/17 08:00 88 08/20/17 04:00 97.8 102 20 167/94 (118) 93 08/20/17 00:00 98.3 102 18 157/89 (111) 95 08/19/17 20:18 94 08/19/17 20:00 97.6 89 20 185/83 (117) 94 08/19/17 19:30 Nasal Cannula 2.00 08/19/17 19:09 95 I/O 08/19/17 08/19/17 08/19/17 08/20/17 08/20/17 08/20/17 07:00 15:00 23:00 07:00 15:00 23:00 Intake Total 822 ml 600 ml 240 ml Output Total 600 ml 500 ml 700 ml Balance 222 ml 100 ml -460 ml Intake Oral 480 ml 600 ml 240 ml IV Total 342 ml Output Urine Total 600 ml 500 ml 700 ml Bladder Scan Volume Amount 85 ml 163 ml 19 ml 250 ml 300 ml 450 ml 163 ml 250 ml 163 ml # Bowel Movements 0 0 Result Diagram: 08/20/17 0655 08/20/17 0555 Objective Remarks GENERAL: MBMN WM, mild sob SKIN: Warm and dry. HEAD: Normocephalic. EYES: No scleral icterus. No injection or drainage. NECK: Supple, trachea midline. No JVD or lymphadenopathy. CARDIOVASCULAR: Regular rate and rhythm without murmurs, gallops, or rubs. RESPIRATORY: Breath sounds equal bilaterally. No accessory muscle use. GASTROINTESTINAL: Abdomen soft, non-tender, nondistended. MUSCULOSKELETAL: No cyanosis, or edema. BACK: Nontender without obvious deformity. No CVA tenderness. A/P Assessment and Plan Bilat PE COPD HTN H/O TIA PLAN: Eliquis 5 mg bid Monitor PTT Dw pt and his at BS Cont Bentyl Dulcolax supp DC plans are underway Nicho Reece MD Aug 20, 2017 17:58
--- NOTE | 2017-08-20 19:11 | RADRPT ---
EXAM DATE/TIME: 08/20/2017 19:28 [place] COMPARISON: CHEST PA & LAT, August 18, 2017, 10:12. INDICATIONS : Cough. MEDICAL HISTORY : Hypertension. Carcinoma, prostatic. Diabetes mellitus type II. COPD SURGICAL HISTORY : Appendectomy. ENCOUNTER: Initial ACUITY: 3 days PAIN SCORE: 0/10 LOCATION: Bilateral chest FINDINGS: Mild left lung base atelectasis and/or infiltrate is seen. Heart and mediastinum are unremarkable for technique. CONCLUSION: No acute cardiopulmonary disease. Gorge Acevedo MD on August 20, 2017 at 19:09 Board Certified Radiologist. This report was verified electronically.
[2017-08-20] MEDS: MELATONIN 5 MG TAB PO SCH (21:07)
[2017-08-21] VITALS (9 sets, daily range): BP systolic 122–167; BP diastolic 63–75; PULSE 72–100; RESP 16–18; TEMP 98–99; O2SAT 95–98
[2017-08-21] MEDS: OFLOXACIN 0.3% OPTH SOLN 5 ML BTL EACH EYE SCH ×5 (03:09→21:13)
[2017-08-21] MEDS: ACETAMINOPHEN/CODEINE 300 MG/30 MG TAB PO PRN ×3 (05:47→21:31)
[2017-08-21 08:29] LABS: HEMATOCRIT 32.9 % (39.0-51.0); MEAN CELL VOLUME 91.7 FL (80.0-100.0); MEAN CORPUSCULAR HEMOGLOBIN 31.5 PG (27.0-34.0); MEAN CORPUSCULAR HGB CONC 34.3 % (32.0-36.0); PLATELET COUNT 144 TH/MM3 (150-450); RED BLOOD COUNT 3.59 MIL/MM3 (4.50-5.90); REVIEW FLAG FINAL; WHITE BLOOD COUNT 7.3 TH/MM3 (4.0-11.0)
[2017-08-21 08:47] LABS: BICARBONATE 23.3 MEQ/L (21.0-32.0); POTASSIUM 3.8 MEQ/L (3.5-5.1)
[2017-08-21] MEDS: risperiDONE 0.5 MG TAB PO SCH ×2 (09:10→21:31)
[2017-08-21] MEDS: DOCUSATE SODIUM 100 MG CAP PO SCH ×3 (09:10→17:41)
[2017-08-21] MEDS: APIXABAN 5 MG TABLET PO SCH ×2 (09:10→21:30)
[2017-08-21] MEDS: DOCUSATE SODIUM 50 MG/SENNA 8.6 MG TAB PO SCH ×2 (09:10→21:31)
[2017-08-21] MEDS: CITALOPRAM HYDROBROMIDE 20 MG TAB PO SCH (09:10)
[2017-08-21] MEDS: LISINOPRIL 20 MG TAB PO SCH ×2 (09:10→21:31)
[2017-08-21] MEDS: INSULIN ASPART SUPPLEMENTAL SCALE SQ SCH ×4 (09:11→21:36)
[2017-08-21] MEDS: amLODIPine BESYLATE 5 MG TAB PO SCH (09:11)
[2017-08-21] MEDS: PANTOPRAZOLE SOD 20 MG DELAYED RELEASE TAB PO SCH (09:11)
[2017-08-21] MEDS: POLYETHYLENE GLYCOL 17 GM PKG PO SCH (09:11)
[2017-08-21] MEDS: TAMSULOSIN HCL 0.4 MG CAP PO SCH ×2 (09:11→17:41)
[2017-08-21] MEDS: SODIUM CHLORIDE 0.9% FLUSH 10 ML FLUSH IV FLUSH SCH ×2 (09:12→21:34)
--- NOTE | 2017-08-21 11:09 | HHI.PR ---
Subjective Remarks Patient alert and oriented. No CP or SOB noted. Objective Vital Signs Date Time Temp Pulse Resp B/P (MAP) Pulse Ox O2 Delivery O2 Flow Rate FiO2 08/21/17 10:34 98 Nasal Cannula 2.00 08/21/17 09:48 73 08/21/17 09:09 Nasal Cannula 2.00 08/21/17 08:00 98.0 85 16 146/64 (91) 96 08/21/17 04:00 Nasal Cannula 2.00 08/21/17 04:00 98.2 95 16 165/75 (105) 98 08/21/17 00:00 98.9 72 16 122/65 (84) 97 08/20/17 20:00 Nasal Cannula 2.00 08/20/17 20:00 87 08/20/17 16:08 98.2 95 19 140/68 (92) 95 08/20/17 13:10 96 Nasal Cannula 2.00 08/20/17 12:05 97.7 92 18 127/62 (83) 96 I/O 08/20/17 08/20/17 08/20/17 08/21/17 08/21/17 08/21/17 07:00 15:00 23:00 07:00 15:00 23:00 Intake Total 240 ml 480 ml Output Total 700 ml 525 ml 800 ml Balance -460 ml -45 ml -800 ml Intake Oral 240 ml 480 ml Output Urine Total 700 ml 525 ml 800 ml Bladder Scan Volume Amount 250 ml 300 ml 450 ml 350 ml 250 ml 163 ml # Bowel Movements 0 1 Result Diagram: 08/21/17 0735 08/21/17 0735 Objective Remarks GENERAL: Alert, uncomfortable SKIN: Warm and dry. HEAD: Normocephalic. EYES: No scleral icterus. No injection or drainage. NECK: Supple, trachea midline. No JVD or lymphadenopathy. CARDIOVASCULAR: Regular rate and rhythm without murmurs, gallops, or rubs. RESPIRATORY: Breath sounds equal bilaterally. No accessory muscle use. GASTROINTESTINAL: Abdomen soft, non-tender, nondistended. MUSCULOSKELETAL: No cyanosis, or edema. BACK: Nontender without obvious deformity. No CVA tenderness. Medications and IVs Current Medications Medications (Trade) Dose Ordered Sig/Marion Route Start Time Stop Time Status Last Admin (NS Flush) 2 ml UNSCH PRN IV FLUSH 08/14/17 15:15 (NS Flush) 2 ml BID IV FLUSH 08/14/17 21:00 08/21/17 09:12 (Tylenol) 650 mg Q4H PRN PO 08/14/17 15:15 08/15/17 03:33 (Zofran Inj) 4 mg Q6H PRN IVP 08/14/17 15:15 08/15/17 02:43 (Narcan Inj) 0.4 mg UNSCH PRN IV PUSH 08/14/17 15:15 (Laura-Colace) 1 tab BID PO 08/14/17 21:00 08/21/17 09:10 (Milk Of Magnesia Liq) 30 ml Q12H PRN PO 08/14/17 15:15 08/19/17 10:02 (Senokot) 17.2 mg Q12H PRN PO 08/14/17 15:15 (Dulcolax Supp) 10 mg DAILY PRN RECTAL 08/14/17 15:15 (Lactulose Liq) 30 ml DAILY PRN PO 08/14/17 15:15 08/15/17 08:13 (NovoLOG SUPPLEMENTAL SCALE) 1 ACHS SLIDING SCALE SQ 08/14/17 17:00 08/21/17 09:11 (Norvasc) 10 mg DAILY PO 08/15/17 09:00 08/21/17 09:11 (CeleXA) 20 mg DAILY PO 08/15/17 09:00 08/21/17 09:10 (Ocuflox 0.3% Opth Soln) 1 drop Q4HR EACH EYE 08/14/17 16:00 08/21/17 09:12 Patient Own Medication PT OWN MED: (Empagliflozin (Jardian... DAILY PO 08/15/17 09:00 Future Hold (Protonix) 20 mg DAILY PO 08/15/17 09:00 08/21/17 09:11 Miscellaneous Information Patient in critical care unit? Ass... Q361D .XX 08/14/17 20:30 (Apresoline Inj) 5 mg Q30M PRN IV PUSH 08/15/17 02:15 08/16/17 04:53 (Colace) 100 mg TID PO 08/16/17 09:00 08/21/17 09:10 (Bentyl) 20 mg QID PRN PO 08/15/17 20:00 08/16/17 15:55 (Mylicon Chew) 80 mg PCHS PRN CHEW 08/15/17 20:00 (Miralax) 17 gm DAILY PO 08/16/17 09:00 08/21/17 09:11 (Prinivil) 20 mg BID PO 08/16/17 21:00 08/21/17 09:10 (risperDAL) 0.5 mg BID PO 08/16/17 12:00 08/21/17 09:10 (Eliquis) 10 mg BID PO 08/16/17 21:00 08/23/17 22:00 08/21/17 09:10 (Eliquis) 5 mg BID PO 08/24/17 09:00 (Melatonin) 10 mg HS PO 08/16/17 21:00 08/20/17 21:07 (Xanax) 0.5 mg Q8H PRN PO 08/16/17 17:45 08/17/17 23:28 (Flomax) 0.4 mg BIDPC PO 08/17/17 23:49 08/21/17 09:11 (Tylenol-Codeine #3) 1 tab Q4H PRN PO 08/18/17 10:00 08/21/17 05:47 (Fleet Mineral Oil Enema) 118 ml DAILY PRN RECTAL 08/20/17 08:45 08/20/17 17:33 Assessment and Plan Problem List: (1) Pulmonary embolism ICD Codes: I26.99 - Other pulmonary embolism without acute cor pulmonale Status: Acute (2) Hypoxia ICD Codes: R09.02 - Hypoxemia Status: Acute (3) HTN (hypertension) ICD Codes: I10 - Essential (primary) hypertension (4) Depression ICD Codes: F32.9 - Major depressive disorder, single episode, unspecified (5) Diabetes ICD Codes: E11.9 - Type 2 diabetes mellitus without complications Assessment and Plan 08/15/17 Submassive PE: Continue heparin drip. Trending troponins. EDC0 ordered and pending. Per theatrical variety agent if clinicall decompensate would consider systemic TPA. O2 sats good on 2 lites. . US ordered of bilateral lower extremity DVT noted in LLE. Hypertension; B/P elevated. On norvasc and PRN hydralazine. Will add lisinopril daily and monitor. Depression; Continue home medications Lesion noted on left kidney: Per recommendations on CT scan Ultrasound ordered. Diabetes: BS AC HS on SS will monitor. Abdominal discomfort: GI consulted. Labs ordered for AM On GI prophylaxis 08/16/17 Submassive PE: On heparin drip will discontinue and convert to eliquis. Troponin trending downward. ECHO no regional wall motion abnormalities. Ejection fraction 67%. Per theatrical variety agent if clinicall decompensate would consider systemic TPA. O2 sats good on room air. US ordered of bilateral lower extremity. Hypertension; B/P elevated. On Norvasc and PRN hydralazine. Will increase lisinopril Depression; Continue home medications Lesion noted on left kidney: Per recommendations on CT scan Ultrasound ordered showing cysts Diabetes: BS AC HS on SS will monitor. Abdominal discomfort: GI consulted Bentyl ordered with symptom improvement Agitation: Will discontinue Dilaudid and add Risperdal. Labs ordered for AM On GI prophylaxis Will transfer out of ICU to step down unit 08/17/17 will move to stepdown unit 08/18/17 will dc hydrocodone may cause confusion 08/19/17 Submassive PE: Eliquis 10 mg BID with stop date . Will then change to Eliquis 5 mg BID. ECHO no regional wall motion abnormalities. Ejection fraction 67%. Postive left lower extremity DVT. PT ordered over weekend. Hypertension; B/P improved at 154/69 with increases in blood pressure medication will continue to monitor. Constipation: Patient on scheduled. bowel regimen will order supp today. Urinary retention: On flomax BID and requiring I+o cath. May need nicholas to SD if does not improve will assess overnight. Abdominal discomfort: GI consulted and has signed off. Bentyl ordered with symptom improvement Agitation: On Risperdal and PRN Xanax with improvement noted. Labs ordered for today. 08/20/17 PE: Continue eliquis and changing to 5 mg BID on the . HTN: continue current therapy well controlled Constipation: supp given yesterday with no BM. Fleets ordered for today. Urinary retention: on flomax. still requiring to be I+O cath. Discussed possibly placing nicholas catheter but patient would like to wait. Will reassess tomorrow PT/OT on GI Prophylaxis. [facility]. 08/21/17 PE: Continue eliquis and changing to 5 mg BID on the . HTN: continue current therapy well controlled B/P 146/64 Constipation: Fleets ordered with good results Urinary retention: on flomax. Improving with being able to stand at bedside PT/OT on GI Prophylaxis. Plan for discharge tomorrow with [facility]. PT evaluation ordered. I and the SERVICE ORDER DISPATCHER CHIEF have both examined this patient and reviewed this and I agree with these findings and plan of care. Stan Rodriguez DO Discussed Condition With Nursing Problem Qualifiers (1) Pulmonary embolism: Flora Ornelas [facility] Aug 21, 2017 11:09
--- NOTE | 2017-08-21 19:21 | HHI.PR ---
Subjective Remarks 82 YOWM with SOB,Bilat PE Breathing better at Started Eliquis has constipation on RA Objective Vital Signs Vital Signs Date Time Temp Pulse Resp B/P (MAP) Pulse Ox O2 Delivery O2 Flow Rate FiO2 08/21/17 16:00 98.3 89 16 166/71 (102) 95 08/21/17 12:00 98.2 93 16 138/63 (88) 95 08/21/17 10:34 98 Nasal Cannula 2.00 08/21/17 09:48 73 08/21/17 09:09 Nasal Cannula 2.00 08/21/17 08:00 98.0 85 16 146/64 (91) 96 08/21/17 04:00 Nasal Cannula 2.00 08/21/17 04:00 98.2 95 16 165/75 (105) 98 08/21/17 00:00 98.9 72 16 122/65 (84) 97 08/20/17 20:00 Nasal Cannula 2.00 08/20/17 20:00 87 I/O 08/20/17 08/20/17 08/20/17 08/21/17 08/21/17 08/21/17 07:00 15:00 23:00 07:00 15:00 23:00 Intake Total 240 ml 480 ml 720 ml Output Total 700 ml 525 ml 800 ml Balance -460 ml -45 ml -800 ml 720 ml Intake Oral 240 ml 480 ml 720 ml Output Urine Total 700 ml 525 ml 800 ml Bladder Scan Volume Amount 250 ml 300 ml 450 ml 350 ml 91 ml 250 ml 163 ml # Voids 12 # Bowel Movements 0 1 1 Result Diagram: 08/21/1735 08/21/17734 Objective Remarks GENERAL: MBMN WM, mild sob SKIN: Warm and dry. HEAD: Normocephalic. EYES: No scleral icterus. No injection or drainage. NECK: Supple, trachea midline. No JVD or lymphadenopathy. CARDIOVASCULAR: Regular rate and rhythm without murmurs, gallops, or rubs. RESPIRATORY: Breath sounds equal bilaterally. No accessory muscle use. GASTROINTESTINAL: Abdomen soft, non-tender, nondistended. MUSCULOSKELETAL: No cyanosis, or edema. BACK: Nontender without obvious deformity. No CVA tenderness. A/P Assessment and Plan Bilat PE COPD HTN H/O TIA PLAN: Eliquis 5 mg bid Monitor PTT Dw pt and his at Cont Bentyl Dulcolax supp DC plans are underway Stable on RA Nicho Reece MD Aug 21, 2017 19:21
--- NOTE | 2017-08-21 19:30 | PD.CARD.PN ---
Subjective Subjective Remarks SOB improving, no CP, ambulating with PT Objective Medications Current Medications Medications (Trade) Dose Ordered Sig/Marion Route Start Time Stop Time Status Last Admin (NS Flush) 2 ml UNSCH PRN IV FLUSH 08/14/17 15:15 (NS Flush) 2 ml BID IV FLUSH 08/14/17 21:00 08/21/17 09:12 (Tylenol) 650 mg Q4H PRN PO 08/14/17 15:15 08/15/17 03:33 (Zofran Inj) 4 mg Q6H PRN IVP 08/14/17 15:15 08/15/17 02:43 (Narcan Inj) 0.4 mg UNSCH PRN IV PUSH 08/14/17 15:15 (Laura-Colace) 1 tab BID PO 08/14/17 21:00 08/21/17 09:10 (Milk Of Magnesia Liq) 30 ml Q12H PRN PO 08/14/17 15:15 08/19/17 10:02 (Senokot) 17.2 mg Q12H PRN PO 08/14/17 15:15 (Dulcolax Supp) 10 mg DAILY PRN RECTAL 08/14/17 15:15 (Lactulose Liq) 30 ml DAILY PRN PO 08/14/17 15:15 08/15/17 08:13 (NovoLOG SUPPLEMENTAL SCALE) 1 ACHS SLIDING SCALE SQ 08/14/17 17:00 08/21/17 17:42 (Norvasc) 10 mg DAILY PO 08/15/17 09:00 08/21/17 09:11 (CeleXA) 20 mg DAILY PO 08/15/17 09:00 08/21/17 09:10 (Ocuflox 0.3% Opt Soln) 1 drop Q4HR EACH EYE 08/14/17 16:00 08/21/17 17:21 Patient Own Medication PT OWN MED: (Empagliflozin (Jardian... DAILY PO 08/15/17 09:00 Future Hold (Protonix) 20 mg DAILY PO 08/15/17 09:00 08/21/17 09:11 Miscellaneous Information Patient in critical care unit? Ass... Q361D .XX 08/14/17 20:30 (Apresoline Inj) 5 mg Q30M PRN IV PUSH 08/15/17 02:15 08/16/17 04:53 (Colace) 100 mg TID PO 08/16/17 09:00 08/21/17 17:41 (Bentyl) 20 mg QID PRN PO 08/15/17 20:00 08/16/17 15:55 (Mylicon Chew) 80 mg PCHS PRN CHEW 08/15/17 20:00 (Miralax) 17 gm DAILY PO 08/16/17 09:00 08/21/17 09:11 (Prinivil) 20 mg BID PO 08/16/17 21:00 08/21/17 09:10 (risperDAL) 0.5 mg BID PO 08/16/17 12:00 08/21/17 09:10 (Eliquis) 10 mg BID PO 08/16/17 21:00 08/23/17 22:00 08/21/17 09:10 (Eliquis) 5 mg BID PO 08/24/17 09:00 (Melatonin) 10 mg HS PO 08/16/17 21:00 08/20/17 21:07 (Xanax) 0.5 mg Q8H PRN PO 08/16/17 17:45 08/17/17 23:28 (Flomax) 0.4 mg BIDPC PO 08/17/17 23:49 08/21/17 17:41 (Tylenol-Codeine #3) 1 tab Q4H PRN PO 08/18/17 10:00 08/21/17 16:27 (Fleet Mineral Oil Enema) 118 ml DAILY PRN RECTAL 08/20/17 08:45 08/20/17 17:33 Vital Signs / I&O Vital Signs Date Time Temp Pulse Resp B/P (MAP) Pulse Ox O2 Delivery O2 Flow Rate FiO2 08/21/17 16:00 98.3 89 16 166/71 (102) 95 08/21/17 12:00 98.2 93 16 138/63 (88) 95 08/21/17 10:34 98 Nasal Cannula 2.00 08/21/17 09:48 73 08/21/17 09:09 Nasal Cannula 2.00 08/21/17 08:00 98.0 85 16 146/64 (91) 96 08/21/17 04:00 Nasal Cannula 2.00 08/21/17 04:00 98.2 95 16 165/75 (105) 98 08/21/17 00:00 98.9 72 16 122/65 (84) 97 08/20/17 20:00 Nasal Cannula 2.00 08/20/17 20:00 87 I/O 08/20/17 08/20/17 08/20/17 08/21/17 08/21/17 08/21/17 07:00 15:00 23:00 07:00 15:00 23:00 Intake Total 240 ml 480 ml 720 ml Output Total 700 ml 525 ml 800 ml Balance -460 ml -45 ml -800 ml 720 ml Intake Oral 240 ml 480 ml 720 ml Output Urine Total 700 ml 525 ml 800 ml Bladder Scan Volume Amount 250 ml 300 ml 450 ml 350 ml 91 ml 250 ml 163 ml # Voids 12 # Bowel Movements 0 1 1 Physical Exam GENERAL: In NAD SKIN: Warm and dry. HEAD: Normocephalic. EYES: No scleral icterus. No injection or drainage. NECK: Supple, trachea midline. No JVD or lymphadenopathy. CARDIOVASCULAR: Regular rate and rhythm without murmurs, gallops, or rubs. RESPIRATORY: Breath sounds equal bilaterally. No accessory muscle use. GASTROINTESTINAL: Abdomen soft, non-tender, nondistended. MUSCULOSKELETAL: No cyanosis, mild edema. Laboratory Laboratory Tests Test 08/21/17 07:35 White Blood Count 7.3 TH/MM3 Red Blood Count 3.59 MIL/MM3 Hemoglobin 11.3 GM/DL Hematocrit 32.9 % Mean Corpuscular Volume 91.7 FL Mean Corpuscular Hemoglobin 31.5 PG Mean Corpuscular Hemoglobin Concent 34.3 % Red Cell Distribution Width 14.0 % Platelet Count 144 TH/MM3 Mean Platelet Volume 8.7 FL Blood Urea Nitrogen 18 MG/DL Creatinine 0.89 MG/DL Random Glucose 154 MG/DL Calcium Level 9.8 MG/DL Sodium Level 141 MEQ/L Potassium Level 3.8 MEQ/L Chloride Level 110 MEQ/L Carbon Dioxide Level 23.3 MEQ/L Anion Gap 8 MEQ/L Estimat Glomerular Filtration Rate 81 ML/MIN Assessment and Plan Problem List: (1) Pulmonary embolism ICD Codes: I26.99 - Other pulmonary embolism without acute cor pulmonale Status: Acute (2) DVT (deep venous thrombosis) ICD Codes: I82.409 - Acute embolism and thrombosis of unspecified deep veins of unspecified lower extremity (3) HTN (hypertension) ICD Codes: I10 - Essential (primary) hypertension (4) Diabetes ICD Codes: E11.9 - Type 2 diabetes mellitus without complications Assessment and Plan Continues to improve. Continue anticoagulation with Eliquis per DVT/PE protocol. Increase activity, continue PT. Continue antihypertensive tx. Echo with no evidence or RV dysfunction. Increase activity. Anticipate discharge soon. Problem Qualifiers (1) Pulmonary embolism: Makenzie Chin MD Aug 21, 2017 19:30
[2017-08-21] MEDS: MELATONIN 5 MG TAB PO SCH (21:31)
[2017-08-22] VITALS (7 sets, daily range): BP systolic 122–173; BP diastolic 58–80; PULSE 65–94; RESP 17–20; TEMP 97.3–98.6; O2SAT 95–99
[2017-08-22] MEDS: OFLOXACIN 0.3% OPTH SOLN 5 ML BTL EACH EYE SCH ×6 (00:11→17:33)
[2017-08-22] MEDS: ACETAMINOPHEN/CODEINE 300 MG/30 MG TAB PO PRN ×5 (02:02→20:30)
--- NOTE | 2017-08-22 07:32 | PD.CARD.PN ---
Subjective Subjective Remarks Feels better, denies SOB, no CP, ambulating Objective Medications Current Medications Medications (Trade) Dose Ordered Sig/Marion Route Start Time Stop Time Status Last Admin (NS Flush) 2 ml UNSCH PRN IV FLUSH 08/14/17 15:15 (NS Flush) 2 ml BID IV FLUSH 08/14/17 21:00 08/21/17 21:34 (Tylenol) 650 mg Q4H PRN PO 08/14/17 15:15 08/15/17 03:33 (Zofran Inj) 4 mg Q6H PRN IVP 08/14/17 15:15 08/15/17 02:43 (Narcan Inj) 0.4 mg UNSCH PRN IV PUSH 08/14/17 15:15 (Laura-Colace) 1 tab BID PO 08/14/17 21:00 08/21/17 21:31 (Milk Of Magnesia Liq) 30 ml Q12H PRN PO 08/14/17 15:15 08/19/17 10:02 (Senokot) 17.2 mg Q12H PRN PO 08/14/17 15:15 (Dulcolax Supp) 10 mg DAILY PRN RECTAL 08/14/17 15:15 (Lactulose Liq) 30 ml DAILY PRN PO 08/14/17 15:15 08/15/17 08:13 (NovoLOG SUPPLEMENTAL SCALE) 1 ACHS SLIDING SCALE SQ 08/14/17 17:00 08/21/17 21:36 (Norvasc) 10 mg DAILY PO 08/15/17 09:00 08/21/17 09:11 (CeleXA) 20 mg DAILY PO 08/15/17 09:00 08/21/17 09:10 (Ocuflox 0.3% Opth Soln) 1 drop Q4HR EACH EYE 08/14/17 16:00 08/22/17 05:00 Patient Own Medication PT OWN MED: (Empagliflozin (Jardian... DAILY PO 08/15/17 09:00 Future Hold (Protonix) 20 mg DAILY PO 08/15/17 09:00 08/21/17 09:11 Miscellaneous Information Patient in critical care unit? Ass... Q361D .XX 08/14/17 20:30 (Apresoline Inj) 5 mg Q30M PRN IV PUSH 10/19/17 02:15 08/16/17 04:53 (Colace) 100 mg TID PO 08/16/17 09:00 08/21/17 17:41 (Bentyl) 20 mg QID PRN PO 08/15/17 20:00 08/16/17 15:55 (Mylicon Chew) 80 mg PCHS PRN CHEW 08/15/17 20:00 (Miralax) 17 gm DAILY PO 08/16/17 09:00 08/21/17 09:11 (Prinivil) 20 mg BID PO 08/16/17 21:00 08/21/17 21:31 (risperDAL) 0.5 mg BID PO 08/16/17 12:00 08/21/17 21:31 (Eliquis) 10 mg BID PO 08/16/17 21:00 08/23/17 22:00 08/21/17 21:30 (Eliquis) 5 mg BID PO 08/24/17 09:00 (Melatonin) 10 mg HS PO 08/16/17 21:00 08/21/17 21:31 (Xanax) 0.5 mg Q8H PRN PO 08/16/17 17:45 08/17/17 23:28 (Flomax) 0.4 mg BIDPC PO 08/17/17 23:49 08/21/17 17:41 (Tylenol-Codeine #3) 1 tab Q4H PRN PO 08/18/17 10:00 08/22/17 06:43 (Fleet Mineral Oil Enema) 118 ml DAILY PRN RECTAL 08/20/17 08:45 08/20/17 17:33 Vital Signs / I&O Vital Signs Date Time Temp Pulse Resp B/P (MAP) Pulse Ox O2 Delivery O2 Flow Rate FiO2 08/22/17 00:00 98.3 65 18 173/80 (111) 98 154/73 (100) 08/21/17 21:38 Room Air 08/21/17 21:36 99.0 100 18 167/75 (105) 08/21/17 20:00 94 08/21/17 16:00 98.3 89 16 166/71 (102) 95 08/21/17 12:00 98.2 93 16 138/63 (88) 95 08/21/17 10:34 98 Nasal Cannula 2.00 08/21/17 09:48 73 08/21/17 09:09 Nasal Cannula 2.00 08/21/17 08:00 98.0 85 16 146/64 (91) 96 I/O 08/21/17 08/21/17 08/21/17 08/22/17 08/22/17 08/22/17 07:00 15:00 23:00 07:00 15:00 23:00 Intake Total 720 ml Output Total 800 ml Balance -800 ml 720 ml Intake Oral 720 ml Output Urine Total 800 ml Bladder Scan Volume Amount 350 ml 91 ml # Voids 12 # Bowel Movements 1 Physical Exam GENERAL: In NAD SKIN: Warm and dry. HEAD: Normocephalic. EYES: No scleral icterus. No injection or drainage. NECK: Supple, trachea midline. No JVD or lymphadenopathy. CARDIOVASCULAR: Regular rate and rhythm without murmurs, gallops, or rubs. RESPIRATORY: Breath sounds equal bilaterally. No accessory muscle use. GASTROINTESTINAL: Abdomen soft, non-tender, nondistended. MUSCULOSKELETAL: No cyanosis, mild edema. Laboratory Laboratory Tests Test 08/21/17 07:35 White Blood Count 7.3 TH/MM3 Red Blood Count 3.59 MIL/MM3 Hemoglobin 11.3 GM/DL Hematocrit 32.9 % Mean Corpuscular Volume 91.7 FL Mean Corpuscular Hemoglobin 31.5 PG Mean Corpuscular Hemoglobin Concent 34.3 % Red Cell Distribution Width 14.0 % Platelet Count 144 TH/MM3 Mean Platelet Volume 8.7 FL Blood Urea Nitrogen 18 MG/DL Creatinine 0.89 MG/DL Random Glucose 154 MG/DL Calcium Level 9.8 MG/DL Sodium Level 141 MEQ/L Potassium Level 3.8 MEQ/L Chloride Level 110 MEQ/L Carbon Dioxide Level 23.3 MEQ/L Anion Gap 8 MEQ/L Estimat Glomerular Filtration Rate 81 ML/MIN Assessment and Plan Problem List: (1) Pulmonary embolism ICD Codes: I26.99 - Other pulmonary embolism without acute cor pulmonale Status: Acute (2) DVT (deep venous thrombosis) ICD Codes: I82.409 - Acute embolism and thrombosis of unspecified deep veins of unspecified lower extremity (3) HTN (hypertension) ICD Codes: I10 - Essential (primary) hypertension (4) Diabetes ICD Codes: E11.9 - Type 2 diabetes mellitus without complications Assessment and Plan Continued improvement. No new cardiac issues. Continue anticoagulation with Eliquis per DVT/PE protocol. Continue PT. Continue antihypertensive tx. Echo with no evidence or RV dysfunction. Increase activity. Anticipate discharge soon. Problem Qualifiers (1) Pulmonary embolism: Makenzie Chin MD Aug 22, 2017 07:32
[2017-08-22] MEDS: INSULIN ASPART SUPPLEMENTAL SCALE SQ SCH ×4 (08:00→20:44)
--- NOTE | 2017-08-22 08:25 | HHI.PR ---
Subjective Remarks 82 YOWM with SOB,Bilat PE Breathing better at BS On Eliquis on RA " I am going home today" Objective Vital Signs Vital Signs Date Time Temp Pulse Resp B/P (MAP) Pulse Ox O2 Delivery O2 Flow Rate FiO2 08/22/17 04:00 97.8 76 18 156/72 (100) 97 08/22/17 04:00 97.8 76 18 156/72 (100) 97 08/22/17 00:00 98.3 65 18 173/80 (111) 98 154/73 (100) 08/21/17 21:38 Room Air 08/21/17 21:36 99.0 100 18 167/75 (105) 08/21/17 20:00 94 08/21/17 16:00 98.3 89 16 166/71 (102) 95 08/21/17 12:00 98.2 93 16 138/63 (88) 95 08/21/17 10:34 98 Nasal Cannula 2.00 08/21/17 09:48 73 08/21/17 09:09 Nasal Cannula 2.00 I/O 08/21/17 08/21/17 08/21/17 08/22/17 08/22/17 08/22/17 07:00 15:00 23:00 07:00 15:00 23:00 Intake Total 720 ml 360 ml Output Total 800 ml 825 ml Balance -800 ml 720 ml -465 ml Intake Oral 720 ml 360 ml Output Urine Total 800 ml 825 ml Bladder Scan Volume Amount 350 ml 91 ml # Voids 12 1 # Bowel Movements 1 Result Diagram: 08/21/17 0735 08/21/17 0735 Objective Remarks GENERAL: MBMN WM, mild sob SKIN: Warm and dry. HEAD: Normocephalic. EYES: No scleral icterus. No injection or drainage. NECK: Supple, trachea midline. No JVD or lymphadenopathy. CARDIOVASCULAR: Regular rate and rhythm without murmurs, gallops, or rubs. RESPIRATORY: Breath sounds equal bilaterally. No accessory muscle use. GASTROINTESTINAL: Abdomen soft, non-tender, nondistended. MUSCULOSKELETAL: No cyanosis, or edema. BACK: Nontender without obvious deformity. No CVA tenderness. A/P Assessment and Plan Bilat PE COPD HTN H/O TIA PLAN: Eliquis 5 mg bid Cont Bentyl Dulcolax supp prn DC plans are underway Stable on RA Will FU in office Nicho Reece MD Aug 22, 2017 08:25
[2017-08-22 08:27] LABS: HEMATOCRIT 34.9 % (39.0-51.0); MEAN CELL VOLUME 91.9 FL (80.0-100.0); MEAN CORPUSCULAR HGB CONC 33.7 % (32.0-36.0); PLATELET COUNT 145 TH/MM3 (150-450); RED CELL DISTRIBUTION WIDTH 14.2 % (11.6-17.2); REVIEW FLAG FINAL; WHITE BLOOD COUNT 6.1 TH/MM3 (4.0-11.0)
[2017-08-22] MEDS: DOCUSATE SODIUM 50 MG/SENNA 8.6 MG TAB PO SCH ×2 (08:51→20:30)
[2017-08-22] MEDS: PANTOPRAZOLE SOD 20 MG DELAYED RELEASE TAB PO SCH (08:51)
[2017-08-22] MEDS: APIXABAN 5 MG TABLET PO SCH ×2 (08:51→20:30)
[2017-08-22] MEDS: TAMSULOSIN HCL 0.4 MG CAP PO SCH ×2 (08:52→17:33)
[2017-08-22] MEDS: POLYETHYLENE GLYCOL 17 GM PKG PO SCH (08:52)
[2017-08-22] MEDS: LISINOPRIL 20 MG TAB PO SCH ×2 (08:52→20:30)
[2017-08-22] MEDS: amLODIPine BESYLATE 5 MG TAB PO SCH (08:52)
[2017-08-22] MEDS: CITALOPRAM HYDROBROMIDE 20 MG TAB PO SCH (08:52)
[2017-08-22] MEDS: DOCUSATE SODIUM 100 MG CAP PO SCH ×3 (08:52→17:33)
[2017-08-22] MEDS: risperiDONE 0.5 MG TAB PO SCH ×2 (08:53→20:30)
[2017-08-22] MEDS: SODIUM CHLORIDE 0.9% FLUSH 10 ML FLUSH IV FLUSH SCH ×2 (08:53→20:30)
[2017-08-22 09:03] LABS: BICARBONATE 24.7 MEQ/L (21.0-32.0)
[2017-08-22] MEDS ORDERED: CITA20TA4 PO (12:13)
[2017-08-22] MEDS ORDERED: EMPA1TAB PO (12:13)
[2017-08-22] MEDS ORDERED: POLY17S PO (12:13)
[2017-08-22] MEDS ORDERED: TAMS5CAP PO (12:13)
[2017-08-22] MEDS ORDERED: RISP0.5T20 PO (12:13)
[2017-08-22] MEDS ORDERED: AMLO2.5T PO (12:13)
[2017-08-22] MEDS ORDERED: NALO1TAB2 PO (12:13)
[2017-08-22] MEDS ORDERED: APIX5TAB PO (12:13)
[2017-08-22] MEDS ORDERED: DICY20TA10 PO (12:13)
[2017-08-22] MEDS ORDERED: OMEP20TA PO (12:13)
[2017-08-22] MEDS ORDERED: LISI-515 PO (12:13)
[2017-08-22] MEDS ORDERED: Simethicone Chew CHEW (12:13)
[2017-08-22] MEDS ORDERED: GNP5TAB6 PO (12:13)
--- NOTE | 2017-08-22 12:38 | HHI.DS ---
Discharge Summary Admission Date Aug 14, 2017 at 16:20 Discharge Date: Aug 22, 2017 Admitting Diagnosis Multilobar PE with hypoxia (1) DVT (deep venous thrombosis) ICD Codes: I82.409 - Acute embolism and thrombosis of unspecified deep veins of unspecified lower extremity (2) Pulmonary embolism ICD Codes: I26.99 - Other pulmonary embolism without acute cor pulmonale Status: Acute (3) HTN (hypertension) ICD Codes: I10 - Essential (primary) hypertension Brief History Patient is an 87-year-old male with who presents to emergency room with complaints of shortness of breath and abdominal pain. Per EMS report when they arrived on scene patient was diaphoretic, pale and pulse ox of 93%. He was found to be tachycardic. Patient reports that he woke up yesterday morning feeling short of breath, reports that his abdomen was uncomfortable, reports that he overall was not feeling well. Patient denies any cough, denies any fevers or chills, denies any overt chest pain. Patient reports that he does have history of COPD, with a past smoker but quit over 30 years ago. No recent illnesses or sick contacts. Patient reports that his abdomen was uncomfortable diffusely, reports that his abdomen is feeling much better upon presentation to the emergency room. He has been seen in office for abdominal discomfort. He has a past medical history of COPD, hypertension, hyperlipidemia, atrial fibrillation currently on Aggrenox for anticoagulation CBC/BMP: 08/22/17 0716 08/22/17 0716 Significant Findings Laboratory Tests Test 08/20/17 05:55 08/20/17 06:55 08/21/17 07:35 08/22/17 07:16 Random Glucose 143 MG/DL (74-106) 154 MG/DL (74-106) 139 MG/DL (74-106) Chloride Level 112 MEQ/L (98-107) 110 MEQ/L (98-107) Estimat Glomerular Filtration Rate 68 ML/MIN (>89) 81 ML/MIN (>89) 77 ML/MIN (>89) Red Blood Count 3.80 MIL/MM3 (4.50-5.90) 3.59 MIL/MM3 (4.50-5.90) 3.80 MIL/MM3 (4.50-5.90) Hemoglobin 11.7 GM/DL (13.0-17.0) 11.3 GM/DL (13.0-17.0) 11.8 GM/DL (13.0-17.0) Hematocrit 34.8 % (39.0-51.0) 32.9 % (39.0-51.0) 34.9 % (39.0-51.0) Platelet Count 136 TH/MM3 (150-450) 144 TH/MM3 (150-450) 145 TH/MM3 (150-450) Calcium Level 10.4 MG/DL (8.5-10.1) PE at Discharge GENERAL: Alert, uncomfortable SKIN: Warm and dry. HEAD: Normocephalic. EYES: No scleral icterus. No injection or drainage. NECK: Supple, trachea midline. No JVD or lymphadenopathy. CARDIOVASCULAR: Regular rate and rhythm without murmurs, gallops, or rubs. RESPIRATORY: Breath sounds equal bilaterally. No accessory muscle use. GASTROINTESTINAL: Abdomen soft, non-tender, nondistended. MUSCULOSKELETAL: No cyanosis, or edema. BACK: Nontender without obvious deformity. No CVA tenderness. Hospital Course Patient is an 87-year-old male with who presents to emergency room with complaints of shortness of breath and abdominal pain. Patient was found to have Bilateral PE and DVT in left lower extremity. He was intially treated with heparin IV and then transitioned to Eliquis. He is being treated with Eliquis initially 10 mg BID and then will transition to 5 mg BID. Plan is to discharge home with HHC/PT and OT. Follow up appt made. Pt Condition on Discharge: Good Discharge Disposition: Disch w/ Home Health Serv Discharge Instructions DIET: Follow Instructions for: As Tolerated, No Restrictions Activities you can perform: Regular-No Restrictions Follow up Referrals: PCP Follow-up @ [facility] August 30, 2017 at 13:30 New Medications: Apixaban (Eliquis) 5 Mg Tab 5 MG PO BID for Prevent Blood Clot for 30 Days, #60 TAB Apixaban (Eliquis) 5 Mg Tab 10 MG PO BID for Prevent Blood Clot for 2 Days, #3 TAB Dicyclomine (Dicyclomine) 20 Mg Tab 20 MG PO QID PRN for abdominal pain for 30 Days, #60 TAB Lisinopril (Lisinopril) 20 Mg Tab 20 MG PO BID for Blood Pressure Management for 30 Days, #60 TAB Melatonin (Gnp Melatonin Maximum Str) 5 Mg Tab 10 MG PO HS for Insomnia for 30 Days, TAB Polyethylene Glycol 3350 Powder (Polyethylene Glycol 3350 Powder) 17 Gram Pow 17 GM PO DAILY for Constipation for 30 Days, #1 BOTTLE Risperidone (Risperdal) 0.5 Mg Tab 0.5 MG PO BID for Agitation for 30 Days, #60 TAB Tamsulosin (Flomax) 0.4 Mg Cap 0.4 MG PO BIDPC for Manage Prostate Problems for 30 Days, #60 CAP [Simethicone Chew] () 80 MG CHEW 80 MG CHEW PCHS PRN for GAS RETENTION Continued Medications: Amlodipine (Amlodipine) 2.5 Mg Tab 10 MG PO DAILY for Blood Pressure Management, #30 TAB 0 Refills (This prescription has been renewed) Ascorbic Acid (Vitamin C) 250 Mg Chew 1000 MG CHEW DAILY for Nutritional Supplement, #30 TAB 0 Refills Cholecalciferol (Vitamin D3) 2,000 Unit Cap 2000 UNITS PO DAILY for Nutritional Supplement, #1 BOTTLE 0 Refills Citalopram (Citalopram) 20 Mg Tab 20 MG PO DAILY for Control Depression, #30 TAB 0 Refills (This prescription has been renewed) Empagliflozin (Jardiance) 10 Mg Tab 10 MG PO DAILY for Blood Sugar Management, #30 TAB 0 Refills (This prescription has been renewed) Ipratropium Nasal (Ipratropium Nasal) 0.06% [place] 1 SPRAY EACH NARE TID, #1 BOTTLE 0 Refills Naloxegol (Movantik) 25 Mg Tab 25 MG PO DAILY for Prevent Constipation, #30 TAB 0 Refills (This prescription has been renewed) Nitroglycerin SL (Nitroglycerin SL) 0.4 Mg Subl 0.4 MG SL DIRECTED PRN for CHEST PAIN, #100 TAB.SL 0 Refills ONE TABLET UNDER THE TONGUE NEEDED FOR CHEST PAIN, MAY REPEAT EVERY FIVE MINUTES FOR A TOTAL OF 3 DOSES OR CALL 911 IF NO RELIEF Ofloxacin Opth Drops (Ofloxacin Opth Drops) 0.3 % Drops 1 DROP EACH EYE Q4HR, #1 BOTTLE Omeprazole (Omeprazole) 20 Mg Tab 20 MG PO DAILY for Heartburn Management, #30 TAB 0 Refills (This prescription has been renewed) [ocuforce] () 1 TAB PO DAILY Discontinued Medications: Dipyridamole-Aspirin (Dipyridamole-Aspirin) 200-25 Mg Cap 1 CAP PO BID for Prevent Blood Clot, #60 CAP 0 Refills Glyburide (Glyburide) 5 Mg Tab 5 MG PO QID for Blood Sugar Management, #60 TAB 0 Refills Take with meals at the same time each day Hydrocodone-Acetaminophen (Hydrocodone-Acetaminophen) 10-325 mg Tab 1 TAB PO Q4H PRN for PAIN, TAB 0 Refills Nitroglycerin SL (Nitrostat SL) 0.3 Mg Subl 0.3 MG SL DIRECTED PRN for CHEST PAIN, #100 TAB.SL 0 Refills ONE TABLET UNDER THE TONGUE NEEDED FOR CHEST PAIN, MAY REPEAT EVERY FIVE MINUTES FOR A TOTAL OF 3 DOSES OR CALL 911 IF NO RELIEF Flora Ornelas Aug 22, 2017 12:38
--- NOTE | 2017-08-22 13:51 | HHI.PR ---
Subjective Remarks Patient is alert and oriented. Denies any SOB or CP Objective Vital Signs Date Time Temp Pulse Resp B/P (MAP) Pulse Ox O2 Delivery O2 Flow Rate FiO2 08/22/17 12:00 97.3 74 20 122/58 (79) 99 08/22/17 10:39 21 08/22/17 08:00 97.8 94 20 139/71 (93) 97 08/22/17 07:15 Room Air 08/22/17 04:00 97.8 76 18 156/72 (100) 97 08/22/17 04:00 97.8 76 18 156/72 (100) 97 08/22/17 00:00 98.3 65 18 173/80 (111) 98 154/73 (100) 08/21/17 21:38 Room Air 08/21/17 21:36 99.0 100 18 167/75 (105) 08/21/17 20:00 94 08/21/17 16:00 98.3 89 16 166/71 (102) 95 I/O 08/21/17 08/21/17 08/21/17 08/22/17 08/22/17 08/22/17 07:00 15:00 23:00 07:00 15:00 23:00 Intake Total 720 ml 360 ml Output Total 800 ml 825 ml Balance -800 ml 720 ml -465 ml Intake Oral 720 ml 360 ml Output Urine Total 800 ml 825 ml Bladder Scan Volume Amount 350 ml 91 ml # Voids 12 1 # Bowel Movements 1 Result Diagram: 08/22/17 0716 08/22/17 0716 Objective Remarks GENERAL: Alert and oriented SKIN: Warm and dry. HEAD: Normocephalic. EYES: No scleral icterus. No injection or drainage. NECK: Supple, trachea midline. No JVD or lymphadenopathy. CARDIOVASCULAR: Regular rate and rhythm without murmurs, gallops, or rubs. RESPIRATORY: Breath sounds equal bilaterally. No accessory muscle use. GASTROINTESTINAL: Abdomen soft, non-tender, nondistended. MUSCULOSKELETAL: No cyanosis, or edema. BACK: Nontender without obvious deformity. No CVA tenderness. Medications and IVs Current Medications Medications (Trade) Dose Ordered Sig/Marion Route Start Time Stop Time Status Last Admin (NS Flush) 2 ml UNSCH PRN IV FLUSH 08/14/17 15:15 (NS Flush) 2 ml BID IV FLUSH 08/14/17 21:00 08/22/17 08:53 (Tylenol) 650 mg Q4H PRN PO 08/14/17 15:15 08/15/17 03:33 (Zofran Inj) 4 mg Q6H PRN IVP 08/14/17 15:15 08/15/17 02:43 (Narcan Inj) 0.4 mg UNSCH PRN IV PUSH 08/14/17 15:15 (Laura-Colace) 1 tab BID PO 08/14/17 21:00 08/22/17 08:51 (Milk Of Magnesia Liq) 30 ml Q12H PRN PO 08/14/17 15:15 08/19/17 10:02 (Senokot) 17.2 mg Q12H PRN PO 08/14/17 15:15 (Dulcolax Supp) 10 mg DAILY PRN RECTAL 08/14/17 15:15 (Lactulose Liq) 30 ml DAILY PRN PO 08/14/17 15:15 08/15/17 08:13 (NovoLOG SUPPLEMENTAL SCALE) 1 ACHS SLIDING SCALE SQ 08/14/17 17:00 08/22/17 08:00 (Norvasc) 10 mg DAILY PO 08/15/17 09:00 08/22/17 08:52 (CeleXA) 20 mg DAILY PO 08/15/17 09:00 08/22/17 08:52 (Ocuflox 0.3% Opth Soln) 1 drop Q4HR EACH EYE 08/14/17 16:00 08/22/17 08:56 Patient Own Medication PT OWN MED: (Empagliflozin (Jardian... DAILY PO 08/15/17 09:00 Future Hold (Protonix) 20 mg DAILY PO 08/15/17 09:00 08/22/17 08:51 Miscellaneous Information Patient in critical care unit? Ass... Q361D .XX 08/14/17 20:30 (Apresoline Inj) 5 mg Q30M PRN IV PUSH 08/15/17 02:15 08/16/17 04:53 (Colace) 100 mg TID PO 08/16/17 09:00 08/22/17 08:52 (Bentyl) 20 mg QID PRN PO 08/15/17 20:00 08/16/17 15:55 (Mylicon Chew) 80 mg PCHS PRN CHEW 08/15/17 20:00 (Miralax) 17 gm DAILY PO 08/16/17 09:00 08/22/17 08:52 (Prinivil) 20 mg BID PO 08/16/17 21:00 08/22/17 08:52 (risperDAL) 0.5 mg BID PO 08/16/17 12:00 08/22/17 08:53 (Eliquis) 10 mg BID PO 08/16/17 21:00 08/23/17 22:00 08/22/17 08:51 (Eliquis) 5 mg BID PO 08/24/17 09:00 (Melatonin) 10 mg HS PO 08/16/17 21:00 08/21/17 21:31 (Xanax) 0.5 mg Q8H PRN PO 08/16/17 17:45 08/17/17 23:28 (Flomax) 0.4 mg BIDPC PO 08/17/17 23:49 08/22/17 08:52 (Tylenol-Codeine #3) 1 tab Q4H PRN PO 08/18/17 10:00 08/22/17 11:36 (Fleet Mineral Oil Enema) 118 ml DAILY PRN RECTAL 08/20/17 08:45 08/20/17 17:33 Assessment and Plan Problem List: (1) Pulmonary embolism ICD Codes: I26.99 - Other pulmonary embolism without acute cor pulmonale Status: Acute (2) Hypoxia ICD Codes: R09.02 - Hypoxemia Status: Acute (3) HTN (hypertension) ICD Codes: I10 - Essential (primary) hypertension (4) Depression ICD Codes: F32.9 - Major depressive disorder, single episode, unspecified (5) Diabetes ICD Codes: E11.9 - Type 2 diabetes mellitus without complications Assessment and Plan 08/15/17 Submassive PE: Continue heparin drip. Trending troponins. EDC0 ordered and pending. Per car pick up driver if clinicall decompensate would consider systemic TPA. O2 sats good on 2 lites. . US ordered of bilateral lower extremity DVT noted in LLE. Hypertension; B/P elevated. On norvasc and PRN hydralazine. Will add lisinopril daily and monitor. Depression; Continue home medications Lesion noted on left kidney: Per recommendations on CT scan Ultrasound ordered. Diabetes: BS AC HS on SS will monitor. Abdominal discomfort: GI consulted. Labs ordered for AM On GI prophylaxis 08/16/17 Submassive PE: On heparin drip will discontinue and convert to eliquis. Troponin trending downward. ECHO no regional wall motion abnormalities. Ejection fraction 67%. Per car pick up driver if clinicall decompensate would consider systemic TPA. O2 sats good on room air. US ordered of bilateral lower extremity. Hypertension; B/P elevated. On Norvasc and PRN hydralazine. Will increase lisinopril Depression; Continue home medications Lesion noted on left kidney: Per recommendations on CT scan Ultrasound ordered showing cysts Diabetes: BS AC HS on SS will monitor. Abdominal discomfort: GI consulted Bentyl ordered with symptom improvement Agitation: Will discontinue Dilaudid and add Risperdal. Labs ordered for AM On GI prophylaxis Will transfer out of ICU to step down unit 08/17/17 will move to stepdown unit 08/18/17 will dc hydrocodone may cause confusion 08/19/17 Submassive PE: Eliquis 10 mg BID with stop date . Will then change to Eliquis 5 mg BID. ECHO no regional wall motion abnormalities. Ejection fraction 67%. Postive left lower extremity DVT. PT ordered over weekend. Hypertension; B/P improved at 154/69 with increases in blood pressure medication will continue to monitor. Constipation: Patient on scheduled. bowel regimen will order supp today. Urinary retention: On flomax BID and requiring I+o cath. May need nicholas to SD if does not improve will assess overnight. Abdominal discomfort: GI consulted and has signed off. Bentyl ordered with symptom improvement Agitation: On Risperdal and PRN Xanax with improvement noted. Labs ordered for today. 08/20/17 PE: Continue eliquis and changing to 5 mg BID on the . HTN: continue current therapy well controlled Constipation: supp given yesterday with no BM. Fleets ordered for today. Urinary retention: on flomax. still requiring to be I+O cath. Discussed possibly placing nicholas catheter but patient would like to wait. Will reassess tomorrow PT/OT on GI Prophylaxis. Plan for discharge to [facility] tomorrow for review today. 08/21/17 PE: Continue eliquis and changing to 5 mg BID on the . HTN: continue current therapy well controlled B/P 146/64 Constipation: Fleets ordered with good results Urinary retention: on flomax. Improving with being able to stand at bedside PT/OT on GI Prophylaxis. Plan for discharge tomorrow with [facility]. PT evaluation ordered. 08/22/17 Plan to discharge home with [facility] today. Patient ambulated in room and gait steady with walker however needs strengthing. called and reported that she is not able to get him home and that he is not moving well enough. Recommended SNF if she is undable to care for patient however she has transportation issues and not alot of support at home. She is going to contact neighbor to see if it is possible for them to help. Case management called to discuss further and to get assistance. Plan for discharge tomorrow either to SNF or home with C. VSS and afebrile. Labs reviewed. I and the OUTSIDE DELIVERER have both examined this patient and reviewed this and I agree with these findings and plan of care. Stan Rodriguez DO Problem Qualifiers (1) Pulmonary embolism: Flora Ornelas OUTSIDE DELIVERER Aug 22, 2017 13:51
[2017-08-22] MEDS: MELATONIN 5 MG TAB PO SCH (20:30)
[2017-08-23] VITALS: BP 169/76; PULSE 90; RESP 18; TEMP 98.2; O2SAT 94
[2017-08-23] MEDS: OFLOXACIN 0.3% OPTH SOLN 5 ML BTL EACH EYE SCH ×3 (00:18→08:43)
[2017-08-23] MEDS: ACETAMINOPHEN/CODEINE 300 MG/30 MG TAB PO PRN (04:51)
[2017-08-23 06:10] VITALS: BP 150/67; PULSE 77; RESP 18; TEMP 99.4; O2SAT 94
[2017-08-23 08:00] VITALS: BP 170/80; PULSE 94; RESP 18; TEMP 97; O2SAT 95
[2017-08-23] MEDS: DOCUSATE SODIUM 50 MG/SENNA 8.6 MG TAB PO SCH (08:42)
[2017-08-23] MEDS: TAMSULOSIN HCL 0.4 MG CAP PO SCH (08:43)
[2017-08-23] MEDS: amLODIPine BESYLATE 5 MG TAB PO SCH (08:44)
[2017-08-23] MEDS: DOCUSATE SODIUM 100 MG CAP PO SCH (08:44)
[2017-08-23] MEDS: PANTOPRAZOLE SOD 20 MG DELAYED RELEASE TAB PO SCH (08:45)
[2017-08-23] MEDS: CITALOPRAM HYDROBROMIDE 20 MG TAB PO SCH (08:45)
[2017-08-23] MEDS: risperiDONE 0.5 MG TAB PO SCH (08:45)
[2017-08-23] MEDS: LISINOPRIL 20 MG TAB PO SCH (08:45)
[2017-08-23] MEDS: POLYETHYLENE GLYCOL 17 GM PKG PO SCH (08:46)
[2017-08-23] MEDS: APIXABAN 5 MG TABLET PO SCH (08:46)
[2017-08-23] MEDS: INSULIN ASPART SUPPLEMENTAL SCALE SQ SCH (08:49)
--- NOTE | 2017-08-23 08:54 | HHI.FF ---
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 My clinical findings support the need for the requested home health care services because: Ltd mobility - disease progression Deconditioned w/ increased weakness Med compliance is questionable I certify that my clinical findings support that this patient is homebound because: Hx COPD- exertion dyspnea/weakness Unsteady gait/balance Flora OrnelasP Aug 23, 2017 08:54
[2017-08-23] MEDS: SODIUM CHLORIDE 0.9% FLUSH 10 ML FLUSH IV FLUSH SCH (09:49)
[2017-08-23 11:32] VITALS: BP 151/64; PULSE 76; RESP 18; TEMP 97.9; O2SAT 98
--- NOTE | 2017-08-23 11:44 | HHI.PR ---
Subjective Remarks 82 YOWM with SOB,Bilat PE Breathing better at BS On Eliquis on RA at BS Objective Vital Signs Vital Signs Date Time Temp Pulse Resp B/P (MAP) Pulse Ox O2 Delivery O2 Flow Rate FiO2 08/23/17 11:32 97.9 76 18 151/64 (93) 98 08/23/17 11:19 Room Air 08/23/17 08:00 97.0 94 18 170/80 (110) 95 08/23/17 06:10 99.4 77 18 150/67 (94) 94 08/23/17 00:00 98.2 90 18 169/76 (107) 94 08/22/17 20:30 75 08/22/17 20:00 98.2 81 17 145/75 (98) 95 08/22/17 19:46 Room Air 08/22/17 16:00 98.6 88 20 135/64 (87) 99 08/22/17 12:00 97.3 74 20 122/58 (79) 99 I/O 08/22/17 08/22/17 08/22/17 08/23/17 08/23/17 08/23/17 07:00 15:00 23:00 07:00 15:00 23:00 Intake Total 360 ml 960 ml 120 ml Output Total 825 ml 1000 ml Balance -465 ml -40 ml 120 ml Intake Oral 360 ml 960 ml 120 ml Output Urine Total 825 ml 1000 ml # Voids 1 2 1 # Bowel Movements 0 Result Diagram: 08/22/17 0716 08/22/17 0716 Objective Remarks GENERAL: MBMN WM, mild sob SKIN: Warm and dry. HEAD: Normocephalic. EYES: No scleral icterus. No injection or drainage. NECK: Supple, trachea midline. No JVD or lymphadenopathy. CARDIOVASCULAR: Regular rate and rhythm without murmurs, gallops, or rubs. RESPIRATORY: Breath sounds equal bilaterally. No accessory muscle use. GASTROINTESTINAL: Abdomen soft, non-tender, nondistended. MUSCULOSKELETAL: No cyanosis, or edema. BACK: Nontender without obvious deformity. No CVA tenderness. A/P Assessment and Plan Bilat PE COPD HTN H/O TIA PLAN: Eliquis 5 mg bid Cont Bentyl Stable on RA Will FU in office 09/10/2017 at 2:45 PM Nicho Reece MD Aug 23, 2017 11:44
[2017-08-24] MEDS ORDERED: APIXABAN 5 MG TABLET PO SCH (09:00)
== END 2017-08-23 12:28 | disposition home health service (06) | DRG 175 ==
LOC: NEPC 07:41 → NEDA 16:20 → HIME 20:00 → N04A 08-17 12:03
PROVIDERS: ADMIT Family Medicine; ATTEND Family Medicine
DX: I26.99 Other pulmonary embolism without acute cor pulmonale (principal); J96.01 Acute respiratory failure with hypoxia; I82.4Z2 Acute embolism and thrombosis of unspecified deep veins of left distal lower extremity; J44.9 Chronic obstructive pulmonary disease, unspecified; E78.5 Hyperlipidemia, unspecified; M19.90 Unspecified osteoarthritis, unspecified site; H91.90 Unspecified hearing loss, unspecified ear; K21.9 Gastro-esophageal reflux disease without esophagitis; I12.9 Hypertensive chronic kidney disease with stage 1 through stage 4 chronic kidney disease, or unspecified chronic kidney disease; N18.9 Chronic kidney disease, unspecified; M54.5 Low back pain; F32.9 Major depressive disorder, single episode, unspecified; K59.00 Constipation, unspecified; E11.22 Type 2 diabetes mellitus with diabetic chronic kidney disease; G89.4 Chronic pain syndrome; I48.0 Paroxysmal atrial fibrillation; R33.9 Retention of urine, unspecified; Z91.81 History of falling; Z86.73 Personal history of transient ischemic attack (TIA), and cerebral infarction without residual deficits; Z79.01 Long term (current) use of anticoagulants; Z87.891 Personal history of nicotine dependence; Z85.828 Personal history of other malignant neoplasm of skin; Z85.46 Personal history of malignant neoplasm of prostate; Z79.84 Long term (current) use of oral hypoglycemic drugs
CPT/HCPCS: 71010; 71020; 71275; 74020; 74177; 76775; 76937; 80048; 80053; 82140; 82550; 82948; 83690; 83735; 83880; 84100; 84484; 85025; 85027; 85610; 85730; 87641; 93005; 93306; 93970; 96365; 96366; 96375; J1170; J0360; J1644; J1650; J1815; J2060; J2270; J2405; J3480; J7030; J7040; Q9967

== ENCOUNTER → 2017-11-26 | Outpatient (CLI) | payer MEDICARE ==
[~2017-11-26] MED LIST changes: -AGGR20025 PO; +APIX5TAB PO; -ATOR40TA16 PO; -CHLO.12%30 SWISH-SPIT; -CHOL1CHW5 CHEW; +DICY20TA10 PO; +EMPA1TAB PO; -EMPA1TAB3 PO; -GLIP10TA6 PO; -GLYB5TAB3 PO; -GUAISYP4 PO; -HYDR-2374 PO; -HYDR-2768 PO; -HYDR12.57 PO; +IPRA0.06 EACH NARE; -IPRA1POW8 NASAL; -LIDO0.052 TOPICAL; -LIDO2GEL11 TOPICAL; +LISI-515 PO; -MEGE40TA PO; +MELA1TAB31 PO; -MOBI7.5T PO; -MUPI2CRE3; -NITR.3 SL; +NITR1SUB3 SL; -NORV5TAB PO; -NYST15T TOPICAL; +OMEP20TA93 PO; -ONDA1TAB17 PO; +POLY17S PO; -RANI150T PO; +RISP0.5T25 PO; +Simethicone Chew CHEW; +TAMS5CAP PO; +VITA2000 PO; +VITA250C3 CHEW; -ZINC1CRE3 TOPICAL; -ZOCO10TA PO; +[UNRECOGNIZED DRUG - OTHER] PO; -[UNRECOGNIZED DRUG - SUPPLY]
[2017-11-26 09:28] LABS: AUTOMATED NEUTROPHIL # 4.2 TH/MM3 (1.8-7.7); BASOPHIL # 0.1 TH/MM3 (0-0.2); BASOPHIL % 0.9 % (0.0-2.0); EOSINOPHIL # 0.2 TH/MM3 (0-0.4); EOSINOPHIL % 2.8 % (0.0-4.0); HEMATOCRIT 39.3 % (39.0-51.0); HEMOGLOBIN 13.2 GM/DL (13.0-17.0); LYMPH % 23.8 % (9.0-44.0); LYMPHOCYTE # 1.6 TH/MM3 (1.0-4.8); MEAN CELL VOLUME 89.3 FL (80.0-100.0); MEAN CORPUSCULAR HEMOGLOBIN 30.1 PG (27.0-34.0); MEAN CORPUSCULAR HGB CONC 33.7 % (32.0-36.0); MEAN PLATELET VOLUME 9.5 FL (7.0-11.0); MONO % 11.2 % (0.0-8.0); MONOCYTE # 0.8 TH/MM3 (0-0.9); NEUT % 61.3 % (16.0-70.0); PLATELET COUNT 135 TH/MM3 (150-450); RED CELL DISTRIBUTION WIDTH 14.6 % (11.6-17.2); WHITE BLOOD COUNT 6.8 TH/MM3 (4.0-11.0)
[2017-11-26 09:50] LABS: ALBUMIN 3.6 GM/DL (3.4-5.0); ALT (GPT) 24 U/L (12-78); AST (GOT) 14 U/L (15-37); BICARBONATE 27.5 MEQ/L (21.0-32.0); CALCIUM 10.1 MG/DL (8.5-10.1); CHLORIDE 105 MEQ/L (98-107); CHOLESTEROL 147 MG/DL (120-200); CREATININE 1.84 MG/DL (0.60-1.30); GLOMERULAR FILTRATION RATE 35 ML/MIN (>89); GLUCOSE,FASTING 145 MG/DL (74-99); SODIUM (NA) 139 MEQ/L (136-145); THYROXINE (T4) 7.7 MCG/DL (4.5-12.1)
[2017-11-26 09:58] LABS: ALKALINE PHOSPHATASE 109 U/L (45-117); BLOOD UREA NITROGEN 47 MG/DL (7-18); CHOLESTEROL/ HDL RATIO 3.02 RATIO; HDL CHOLESTEROL 48.6 MG/DL (40.0-60.0); LDL CHOLESTEROL 84 MG/DL (0-99); TOTAL BILIRUBIN ADULT 0.3 MG/DL (0.2-1.0); TOTAL PROTEIN 6.9 GM/DL (6.4-8.2); TRIGLYCERIDES 73 MG/DL (42-150)
[2017-11-26 16:00] LABS: HEMOGLOBIN A1C 6.8 % (4.3-6.0)
== END ==
LOC: PLAB 07:35
PROVIDERS: ATTEND Family Medicine
DX: I10 Essential (primary) hypertension (principal); E10.8 Type 1 diabetes mellitus with unspecified complications; E78.2 Mixed hyperlipidemia; E03.8 Other specified hypothyroidism; Z79.899 Other long term (current) drug therapy
CPT/HCPCS: 36415; 80053; 80061; 83036; 84436; 84443; 84480; 85025

== ENCOUNTER → 2017-12-27 | Outpatient (CLI) | payer MEDICARE ==
[2017-12-27 10:02] LABS: ALBUMIN 3.8 GM/DL (3.4-5.0); AST (GOT) 14 U/L (15-37); BICARBONATE 25.8 MEQ/L (21.0-32.0); BLOOD UREA NITROGEN 32 MG/DL (7-18); CALCIUM 10.1 MG/DL (8.5-10.1); CHLORIDE 104 MEQ/L (98-107); CREATININE 1.71 MG/DL (0.60-1.30); GLOMERULAR FILTRATION RATE 38 ML/MIN (>89); GLUCOSE,FASTING 143 MG/DL (74-99); SODIUM (NA) 139 MEQ/L (136-145)
[2017-12-27 10:08] LABS: ALKALINE PHOSPHATASE 93 U/L (45-117); ALT (GPT) 23 U/L (12-78); TOTAL BILIRUBIN ADULT 0.4 MG/DL (0.2-1.0); TOTAL PROTEIN 6.7 GM/DL (6.4-8.2)
== END ==
LOC: PLAB 07:16
PROVIDERS: ATTEND Family Medicine
DX: N18.3 Chronic kidney disease, stage 3 (moderate) (principal)
CPT/HCPCS: 36415; 80053

== ENCOUNTER → 2018-03-31 | Outpatient (CLI) | payer MEDICARE ==
[2018-03-31 11:07] LABS: AUTOMATED NEUTROPHIL # 5.1 TH/MM3 (1.8-7.7); BASOPHIL % 0.6 % (0.0-2.0); EOSINOPHIL # 0.2 TH/MM3 (0-0.4); EOSINOPHIL % 2.4 % (0.0-4.0); HEMATOCRIT 39.2 % (39.0-51.0); HEMOGLOBIN 13.5 GM/DL (13.0-17.0); LYMPH % 21.3 % (9.0-44.0); LYMPHOCYTE # 1.7 TH/MM3 (1.0-4.8); MEAN CELL VOLUME 88.9 FL (80.0-100.0); MEAN CORPUSCULAR HEMOGLOBIN 30.5 PG (27.0-34.0); MEAN CORPUSCULAR HGB CONC 34.3 % (32.0-36.0); MONO % 10.1 % (0.0-8.0); MONOCYTE # 0.8 TH/MM3 (0-0.9); NEUT % 65.6 % (16.0-70.0); PLATELET COUNT 167 TH/MM3 (150-450); RED BLOOD COUNT 4.42 MIL/MM3 (4.50-5.90); RED CELL DISTRIBUTION WIDTH 14.7 % (11.6-17.2); WHITE BLOOD COUNT 7.8 TH/MM3 (4.0-11.0)
[2018-03-31 11:26] LABS: ALBUMIN 3.8 GM/DL (3.4-5.0); AST (GOT) 19 U/L (15-37); BLOOD UREA NITROGEN 34 MG/DL (7-18); CALCIUM 10.1 MG/DL (8.5-10.1); CHLORIDE 105 MEQ/L (98-107); CREATININE 1.63 MG/DL (0.60-1.30); GLOMERULAR FILTRATION RATE 40 ML/MIN (>89); GLUCOSE,FASTING 188 MG/DL (74-99); SODIUM (NA) 138 MEQ/L (136-145)
[2018-03-31 11:27] LABS: CHOLESTEROL 157 MG/DL (120-200); TRIGLYCERIDES 155 MG/DL (42-150)
[2018-03-31 11:35] LABS: PROSTATE SPECIFIC ANTIGEN 1.39 NG/ML (0.00-4.00)
[2018-03-31 11:39] LABS: ALKALINE PHOSPHATASE 98 U/L (45-117); ALT (GPT) 26 U/L (12-78); CHOLESTEROL/ HDL RATIO 4.17 RATIO; HDL CHOLESTEROL 37.6 MG/DL (40.0-60.0); LDL CHOLESTEROL 88 MG/DL (0-99); THYROXINE (T4) 8.7 MCG/DL (4.5-12.1); TOTAL BILIRUBIN ADULT 0.4 MG/DL (0.2-1.0); TOTAL PROTEIN 6.9 GM/DL (6.4-8.2)
[2018-03-31 16:19] LABS: HEMOGLOBIN A1C 7.3 % (4.3-6.0)
== END ==
LOC: PLAB 07:42
PROVIDERS: ATTEND Internal Medicine Interventional Cardiology
DX: I10 Essential (primary) hypertension (principal); E78.2 Mixed hyperlipidemia; E03.8 Other specified hypothyroidism; Z12.5 Encounter for screening for malignant neoplasm of prostate; Z79.899 Other long term (current) drug therapy
CPT/HCPCS: 36415; 80053; 80061; 83036; 84436; 84443; 84480; 85025; G0103